=== PATIENT | female | born 1965 | race African-American/Black ===

== ENCOUNTER 2017-06-05 14:14 | Inpatient (IN) | payer OTHER ==
[2017-06-05 14:32] VITALS: BMI 18.5
--- NOTE | 2017-06-05 14:48 | HP ---
Admission [facility] Chief Complaint: i am here for rehab from heroin and cocaine Allergies/Adverse Reactions: Allergies Allergy/AdvReac Type Severity Reaction Status Date / Time No Known Allergies Allergy Verified 06/05/17 14:42 History of Present Illness: this 51 years old female with heroin and cocaine dependence,seeking rehab,last treatment in 2013 history of anxiety depression longest period of sobriety 3 years Exam Limitations: No Limitations - Ebola screening Have you traveled outside of the country in the last 21 days: No (N) Have you had contact with anyone from an Ebola affected area: No Have you been sick,other than usual withdrawal symptoms: No Do you have a fever: No - Review of Systems Constitutional: No Symptoms Reported EENT: reports: No Symptoms Reported Respiratory: reports: No Symptoms reported Cardiac: reports: No Symptoms Reported GI: reports: No Symptoms Reported : reports: No Symptoms Reported Musculoskeletal: reports: No Symptoms Reported Integumentary: reports: No Symptoms Reported Neuro: reports: No Symptoms reported Endocrine: reports: No Symptoms Reported Hematology: reports: No Symptoms Reported Psychiatric: reports: Depressed Patient History - Patient Medical History Hx Anemia: Yes (on iron pill) Hx Asthma: No Hx Chronic Obstructive Pulmonary Disease (COPD): No Hx Cancer: No Hx Cardiac Disorders: No Hx Congestive Heart Failure: No Hx Hypertension: No Hx Hypercholesterolemia: No Hx Pacemaker: No HX Cerebrovascular Accident: No Hx Seizures: No Hx Dementia: No Hx Diabetes: No Hx Gastrointestinal Disorders: No Hx Liver Disease: No Hx Genitourinary Disorders: No Hx Sexually Transmitted Disorders: No Hx Renal Disease (ESRD): No Hx Thyroid Disease: No Hx Human Immunodeficiency Virus (HIV): No (last 01/17 negative) Hx Hepatitis C: No Hx Depression: Yes Hx Suicide Attempt: No Hx Bipolar Disorder: Yes (SEROQUEL/CLONIDINE) Hx Schizophrenia: No Other Medical History: no suicidal,no homicidal - Patient Surgical History Past Surgical History: Yes Hx Neurologic Surgery: No Hx Cataract Extraction: No Hx Cardiac Surgery: No Hx Lung Surgery: No Hx Breast Surgery: No Hx Breast Biopsy: No Hx Abdominal Surgery: No Hx Appendectomy: No Hx Cholecystectomy: No Hx Genitourinary Surgery: No Hx Section: No Hx Orthopedic Surgery: No Other Surgical History: tubal ligation in 2000 Anesthesia Reaction: No - PPD History Previous Implant?: Yes Documented Results: Negative w/o proof Implanted On Prior [facility] Admission?: Yes Date: 04/13/13 PPD to be Administered?: Yes - Reproductive History Patient is a Female of Child Bearing Age (11 -55 yrs old): Yes Last Menstrual Period: 05/17/17 Patient : No - Smoking Cessation Smoking history: Current every day smoker Have you smoked in the past 12 months: Yes Aproximately how many cigarettes per day: 3 Cigars Per Day: 0 Hx Chewing Tobacco Use: No Initiated information on smoking cessation: Yes 'Breaking Loose' booklet given: 06/05/17 - Substance & Tx. History Hx Alcohol Use: No Hx Substance Use: Yes Substance Use Type: Cocaine, Heroin, Marijuana Hx Substance Use Treatment: Yes ([facility] 2013) - Substances Abused Heroin Route: Inhalation Frequency: 1-2 times per week Amount used: 1/2 BAG Age of first use: 36 Date of Last Use: 06/04/17 Cocaine Route: Smoking Frequency: 1-2 times per week Amount used: 1 BAG Age of first use: 23 Date of Last Use: 06/04/17 Marijuana/Hashish Route: Smoking Frequency: 1-2 times per week Amount used: 1 JOINT Age of first use: 15 Date of Last Use: 06/04/17 Family Disease History - Family Disease History Family Disease History: Heart Disease: Father (ALCOHOLIC,HTN), Mother (HTN), Other: Father Admission Physical Exam S - Vital Signs Vital Signs: Vital Signs - 24 hr 06/05/17 14:28 Temperature 98.1 F Pulse Rate 84 Respiratory 18 Rate Blood Pressure 157/81 - Physical General Appearance: Yes: Within Normal Limits HEENTM: Yes: Within Normal Limits, Normal ENT Inspection, TRESA Respiratory: Yes: Lungs Clear, Normal Breath Sounds, No Respiratory Distress Neck: Yes: Within Normal Limits Cardiology: Yes: Within Normal Limits, Regular Rhythm, Regular Rate, S1, S2 Abdominal: Yes: Within Normal Limits, Normal Bowel Sounds, Non Tender, Flat, Soft Genitourinary: Yes: Within Normal Limits Back: Yes: Within Normal Limits Musculoskeletal: Yes: Within Normal Limits Extremities: Yes: Within Normal Limits, Normal Range of Motion 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 NML intact, Fully Oriented, Alert, Motor Strength 5/5 Integumentary: Yes: Dry Lymphatic: Yes: Within Normal Limits - Diagnostic (1) Arthritis Current Visit: No Status: Acute (2) Bipolar disorder Current Visit: No Status: Acute (3) Cocaine dependence Current Visit: No Status: Acute (4) Low back pain Current Visit: No Status: Acute (5) Opioid dependence Current Visit: No Status: Acute (6) Weight decreased Current Visit: No Status: Acute (7) Anemia Current Visit: Yes Status: Acute Cleared for Admission [facility] - Detox or Rehab Claeared for Rehab Admission: Yes S Breath Alcohol Content Breath Alcohol Content: 0 Urine Pregancy Test - Result Urine Test Results: Negative- NO Line Present Urine Drug Screen - Results Drug Screen Negative: No Urine Drug Screen Results: THC-Marijuana, CHRIS-Cocaine, OPI-Opiates Inpatient Rehab Admission - Initial Determination Are CD services needed?: Yes Free of communicable disease: Yes Not in need of hospitalization: Yes - Rehab Admission Criteria Previous failed treatment: Yes Poor recovery environment: Yes Comorbidities: Yes Patient is meeting Inpatient Rehab admission criteria:: Yes
[2017-06-05] MEDS ORDERED: P-EPHED 60MG/TRIPROLIDI 2.5MG TABLET PO PRN (14:59)
[2017-06-05] MEDS ORDERED: guaiFENesin/D-METHORPHAN HB 10 ML UNIT-DOSE CUPS PO PRN (14:59)
[2017-06-05] MEDS ORDERED: MENTHOL/PHENOL 1 EACH UD MM PRN (14:59)
[2017-06-05] MEDS ORDERED: MAG HYDROX/AL HYDROX/SIMETH 30 ML UNIT-DOSE CUP PO PRN (14:59)
[2017-06-05] MEDS ORDERED: LOPERAMIDE HCL 2 MG CAPSULE PO PRN (14:59)
[2017-06-05] MEDS ORDERED: MAGNESIUM HYDROX 2400MG/30ML ORAL SUSPENSION 30 ML CUP PO PRN (14:59)
[2017-06-05] MEDS ORDERED: hydrOXYzine PAMOATE 25 MG CAPSULE (FP) PO PRN (14:59)
[2017-06-05] MEDS ORDERED: ACETAMINOPHEN 325 MG TABLET (FP) PO PRN (14:59)
[2017-06-05] MEDS ORDERED: MAGNESIUM CITRATE 300 ML BOTTLE PO PRN (14:59)
--- NOTE | 2017-06-05 15:48 | HP ---
Psychiatrist Admission - Data Date of interview: 06/05/17 Admission source: [facility] Identifying data: This is the first admission to [address] [place] [address] for this 51 years old AA female mother of 4,resides with her son,unemployed,supported by [employer] since Mar 2017. Medical History: Significant for Anemia. Psychiatric History: Patient reports long and extensive psychiatric history started back in 1989.Patient reports about 5 psychiatric hospitalizations, nothing recently She was dx with ZBipolar disworder.Patient [facility]artrist [facility].Current medications (she stopped 2-3 months ago since she relapsed).Patient is willing to restart :Seroquel 50 mg po bid. Physical/Sexual Abuse/Trauma History: denies Vital Signs: Vital Signs - 24 hr 06/05/17 14:28 Temperature 98.1 F Pulse Rate 84 Respiratory 18 Rate Blood Pressure 157/81 Allergies/Adverse Reactions: Allergies Allergy/AdvReac Type Severity Reaction Status Date / Time No Known Allergies Allergy Verified 06/05/17 14:42 Date of last physical exam: 06/05/17 Concur with the findings of this exam: Yes - Substance Abuse/Tx History Hx Alcohol Use: Yes (socially) Hx Substance Use: Yes (marijuana since 14,heroin since 36 yococaine /crack since 23 yo) Substance Use Type: Cocaine, Heroin Hx Substance Use Treatment: Yes (longest abstinence 3 years) Mental Status Exam - Mental Status Exam Alert and Oriented to: Time, Place, Person Cognitive Function: Grossly Intact Patient Appearance: Unkempt Mood: Anxious, Irritable Affect: Labile Patient Behavior: Restless, Cooperative Speech Pattern: Clear Voice Loudness: Normal Thought Process: Goal Oriented Thought Disorder: Not Present Hallucinations: Denies Suicidal Ideation: Denies Homicidal Ideation: Denies Insight/Judgement: Fair Sleep: Difficulty falling asleep Appetite: Good Muscle strength/Tone: Normal Gait/Station: Normal Psychiatric Findings - Problem List ([place] 1, 2,3) (1) Anemia Current Visit: Yes Status: Chronic (2) Alcohol dependence Current Visit: Yes Status: Chronic (3) Arthritis Current Visit: Yes Status: Chronic (4) Asthma Current Visit: Yes Status: Chronic (5) Bipolar disorder Current Visit: Yes Status: Chronic (6) Opioid dependence Current Visit: Yes Status: Chronic (7) Cocaine dependence Current Visit: Yes Status: Chronic (8) Low back pain Current Visit: Yes Status: Chronic (9) Opioid dependence Current Visit: Yes Status: Chronic - Initial Treatment Plan Initial Treatment Plan: Continue Seroquel 200 mg po am and 300 mg po hs.Will monitor progress.
[2017-06-05 18:43] LABS: HEMATOCRIT 41.6 % (32.4-45.2); HEMOGLOBIN 13.7 GM/dL (10.7-15.3); MCH 30.6 pg (25.7-33.7); MCHC 32.9 g/dl (32.0-36.0); MEAN CELL VOLUME 93.1 fl (80-96); MEAN PLT VOLUME 9.3 fl (7.5-11.1); PLATELET COUNT 242 K/MM3 (134-434); RBC 4.47 M/mm3 (3.60-5.2); RDW 14.3 % (11.6-15.6); WHITE BLOOD COUNT 4.8 K/mm3 (4.0-10.0)
[2017-06-05 18:50] LABS: ALBUMIN 3.8 g/dl (3.4-5.0); ANION GAP 9 (8-16); BLOOD UREA NITROGEN 12 mg/dL (7-18); CALCIUM 8.7 mg/dL (8.5-10.1); CHLORIDE 106 mmol/L (98-107); CO2 28 mmol/L (21-32); GLUCOSE,RANDOM 130 mg/dL (74-106); SGPT/ALT 32 U/L (12-78); SODIUM 143 mmol/L (136-145)
[2017-06-05 18:54] LABS: ALK PHOS 108 U/L (45-117); BILIRUBIN,TOTAL 0.7 mg/dL (0.2-1.0); SGOT/AST 20 U/L (15-37); TOT PROT 7.1 g/dl (6.4-8.2)
[2017-06-05 19:03] LABS: URINE APPEARANCE SLCLOUDY; URINE BILIRUBIN NEGATIVE (NEGATIVE); URINE BLOOD NEGATIVE (NEGATIVE); URINE COLOR DKYELLOW; URINE GLUCOSE (UA) NEGATIVE (NEGATIVE); URINE KETONE TRACE (NEGATIVE); URINE LEUK ESTERASE NEGATIVE (NEGATIVE); URINE NITRITE NEGATIVE (NEGATIVE); URINE UROBILINOGEN 4.0 E.U/dl mg/dL (0.2-1.0)
[2017-06-05 19:09] LABS: URINE PROTEIN 1+ (NEGATIVE)
[2017-06-05 20:26] LABS: POTASSIUM 2.9 mmol/L (3.5-5.1)
[2017-06-05 20:33] LABS: EPI CELLS RARE /HPF (FEW); URINE BACTERIA RARE /hpf (NONE SEEN); URINE HYALINE CAST 1 /lpf; URINE MUCUS MODERATE
--- NOTE | 2017-06-05 20:34 | PN ---
[facility] Progress Note Note: received lab call potassium 2.9 begin potassium 20 meq bid x 10 dosage repeat camp 06/10/17
[2017-06-05] MEDS ORDERED: POTASSIUM CHLORIDE TABS 20 MEQ TABLET.ER (FP) PO ONE (21:00)
[2017-06-05] MEDS: THIAMINE HCL 100 MG TABLET (FP) PO SCH (22:03)
[2017-06-05] MEDS: POTASSIUM CHLORIDE ORAL LIQUID 20 MEQ/15 ML PO SCH (23:40)
[2017-06-06] MEDS: POTASSIUM CHLORIDE ORAL LIQUID 20 MEQ/15 ML PO SCH ×2 (10:29→21:47)
[2017-06-06] MEDS: PRENATAL VITAMINS W/ FOLIC ACID TABLET (FP) PO SCH (10:29)
[2017-06-06] MEDS: BACITRACIN 0.9 GM PACKET TP SCH ×2 (10:29→21:47)
--- NOTE | 2017-06-06 12:32 | EKG ---
Test Reason : Blood Pressure : / mmHG Vent. Rate : 074 BPM Atrial Rate : 074 BPM P-R Int : 148 ms QRS Dur : 080 ms QT Int : 352 ms P-R-T Axes : 067 -27 085 degrees QTc Int : 390 ms NORMAL SINUS RHYTHM INFERIOR INFARCT , AGE UNDETERMINED ANTEROSEPTAL INFARCT , AGE UNDETERMINED ABNORMAL ECG NO PREVIOUS ECGS AVAILABLE Confirmed by MARIA T JOYA MD ([id number]) on 06/06/2017 12:32:30 PM Referred By: Confirmed By:MARIA T JOYA MD
--- NOTE | 2017-06-06 12:33 | EKG ---
Test Reason : Blood Pressure : / mmHG Vent. Rate : 065 BPM Atrial Rate : 065 BPM P-R Int : 148 ms QRS Dur : 072 ms QT Int : 426 ms P-R-T Axes : 052 -16 057 degrees QTc Int : 443 ms NORMAL SINUS RHYTHM INFERIOR INFARCT (CITED ON OR BEFORE 05-JUN-2017) ABNORMAL ECG WHEN COMPARED WITH ECG OF 05-JUN-2017 20:21, CRITERIA FOR ANTEROSEPTAL INFARCT ARE NO LONGER PRESENT T WAVE INVERSION NO LONGER EVIDENT IN ANTERIOR LEADS QT HAS LENGTHENED Confirmed by MARIA T JOYA MD ([id number]) on 06/06/2017 12:32:54 PM Referred By: Confirmed By:MARIA T JOYA MD
[2017-06-06] MEDS: THIAMINE HCL 100 MG TABLET (FP) PO SCH (21:47)
[2017-06-07] MEDS ORDERED: POTASSIUM CHLORIDE TABS 20 MEQ TABLET.ER (FP) PO ONE (09:59)
[2017-06-07] MEDS: BACITRACIN 0.9 GM PACKET TP SCH ×2 (10:46→22:08)
[2017-06-07] MEDS: PRENATAL VITAMINS W/ FOLIC ACID TABLET (FP) PO SCH (10:46)
[2017-06-07] MEDS: IBUPROFEN 400 MG TABLET (FP) PO PRN ×2 (10:47→19:33)
[2017-06-07] MEDS: THIAMINE HCL 100 MG TABLET (FP) PO SCH (22:08)
[2017-06-08] MEDS: PRENATAL VITAMINS W/ FOLIC ACID TABLET (FP) PO SCH (10:35)
[2017-06-08] MEDS: BACITRACIN 0.9 GM PACKET TP SCH ×2 (10:36→22:04)
[2017-06-08] MEDS: IBUPROFEN 400 MG TABLET (FP) PO PRN (11:55)
[2017-06-08] MEDS: COLLOIDAL OATMEAL 1 BAR EACH TP PRN (13:03)
[2017-06-08] MEDS: THIAMINE HCL 100 MG TABLET (FP) PO SCH (22:03)
[2017-06-09] MEDS: BACITRACIN 0.9 GM PACKET TP SCH ×2 (10:17→21:46)
[2017-06-09] MEDS: PRENATAL VITAMINS W/ FOLIC ACID TABLET (FP) PO SCH (10:17)
[2017-06-09] MEDS: THIAMINE HCL 100 MG TABLET (FP) PO SCH (21:46)
[2017-06-10] MEDS: PRENATAL VITAMINS W/ FOLIC ACID TABLET (FP) PO SCH (10:39)
[2017-06-10] MEDS: BACITRACIN 0.9 GM PACKET TP SCH ×2 (10:39→21:52)
[2017-06-10] MEDS: THIAMINE HCL 100 MG TABLET (FP) PO SCH (21:52)
[2017-06-10] MEDS: QUEtiapine FUMARATE 50 MG TABLET PO SCH (21:53)
[2017-06-11] MEDS: BACITRACIN 0.9 GM PACKET TP SCH ×2 (09:50→21:36)
[2017-06-11] MEDS: QUEtiapine FUMARATE 50 MG TABLET PO SCH ×2 (09:52→21:37)
[2017-06-11] MEDS: NAPROXEN 500 MG TABLET (FP) PO SCH ×2 (09:52→21:37)
[2017-06-11] MEDS: PANTOPRAZOLE 40 MG TABLET (FP) PO SCH (09:52)
[2017-06-11] MEDS: PRENATAL VITAMINS W/ FOLIC ACID TABLET (FP) PO SCH (09:53)
[2017-06-11] MEDS: LIDOCAINE 5% TOPICAL PATCH TP SCH (09:54)
[2017-06-11] MEDS: GABAPENTIN 100 MG CAPSULE (FP) PO SCH ×2 (13:23→21:37)
[2017-06-11] MEDS: CYCLOBENZAPRINE HCL 5 MG TABLET PO SCH ×2 (13:23→21:37)
[2017-06-11] MEDS: THIAMINE HCL 100 MG TABLET (FP) PO SCH (21:37)
[2017-06-11] MEDS: LIDOCAINE PATCH REMOVAL MC SCH (21:38)
[2017-06-12] MEDS: CYCLOBENZAPRINE HCL 5 MG TABLET PO SCH ×3 (06:52→21:50)
[2017-06-12] MEDS: GABAPENTIN 100 MG CAPSULE (FP) PO SCH ×3 (06:52→21:50)
[2017-06-12] MEDS: BACITRACIN 0.9 GM PACKET TP SCH ×2 (10:33→21:50)
[2017-06-12] MEDS: NAPROXEN 500 MG TABLET (FP) PO SCH (10:33)
[2017-06-12] MEDS: PRENATAL VITAMINS W/ FOLIC ACID TABLET (FP) PO SCH (10:33)
[2017-06-12] MEDS: LIDOCAINE 5% TOPICAL PATCH TP SCH (10:33)
[2017-06-12] MEDS: QUEtiapine FUMARATE 50 MG TABLET PO SCH ×2 (10:33→21:50)
[2017-06-12] MEDS: PANTOPRAZOLE 40 MG TABLET (FP) PO SCH (10:34)
[2017-06-12] MEDS: THIAMINE HCL 100 MG TABLET (FP) PO SCH (21:50)
[2017-06-12] MEDS: LIDOCAINE PATCH REMOVAL MC SCH (23:20)
[2017-06-13] MEDS: GABAPENTIN 100 MG CAPSULE (FP) PO SCH ×3 (06:35→21:32)
[2017-06-13] MEDS: CYCLOBENZAPRINE HCL 5 MG TABLET PO SCH ×3 (06:35→21:32)
[2017-06-13] MEDS: PRENATAL VITAMINS W/ FOLIC ACID TABLET (FP) PO SCH (10:35)
[2017-06-13] MEDS: BACITRACIN 0.9 GM PACKET TP SCH ×2 (10:35→21:32)
[2017-06-13] MEDS: QUEtiapine FUMARATE 50 MG TABLET PO SCH ×2 (10:35→21:32)
[2017-06-13] MEDS: LIDOCAINE 5% TOPICAL PATCH TP SCH (10:35)
[2017-06-13] MEDS: THIAMINE HCL 100 MG TABLET (FP) PO SCH (21:32)
[2017-06-13] MEDS: LIDOCAINE PATCH REMOVAL MC SCH (21:33)
[2017-06-14] MEDS: GABAPENTIN 100 MG CAPSULE (FP) PO SCH ×3 (06:41→21:41)
[2017-06-14] MEDS: CYCLOBENZAPRINE HCL 5 MG TABLET PO SCH ×3 (06:41→21:41)
[2017-06-14] MEDS: LIDOCAINE 5% TOPICAL PATCH TP SCH (10:05)
[2017-06-14] MEDS: PRENATAL VITAMINS W/ FOLIC ACID TABLET (FP) PO SCH (10:05)
[2017-06-14] MEDS: BACITRACIN 0.9 GM PACKET TP SCH ×2 (10:05→21:41)
[2017-06-14] MEDS: QUEtiapine FUMARATE 50 MG TABLET PO SCH ×2 (10:05→21:41)
[2017-06-14] MEDS: THIAMINE HCL 100 MG TABLET (FP) PO SCH (21:41)
[2017-06-14] MEDS: LIDOCAINE PATCH REMOVAL MC SCH (21:42)
[2017-06-14] MEDS: COLLOIDAL OATMEAL 1 BAR EACH TP PRN (21:52)
[2017-06-15] MEDS: CYCLOBENZAPRINE HCL 5 MG TABLET PO SCH ×3 (06:58→21:40)
[2017-06-15] MEDS: GABAPENTIN 100 MG CAPSULE (FP) PO SCH ×3 (06:58→21:40)
[2017-06-15] MEDS: BACITRACIN 0.9 GM PACKET TP SCH ×2 (10:37→21:41)
[2017-06-15] MEDS: PRENATAL VITAMINS W/ FOLIC ACID TABLET (FP) PO SCH (10:37)
[2017-06-15] MEDS: QUEtiapine FUMARATE 50 MG TABLET PO SCH ×2 (10:37→21:40)
[2017-06-15] MEDS: LIDOCAINE 5% TOPICAL PATCH TP SCH (10:38)
[2017-06-15] MEDS: LIDOCAINE PATCH REMOVAL MC SCH (21:40)
[2017-06-15] MEDS: THIAMINE HCL 100 MG TABLET (FP) PO SCH (21:40)
[2017-06-16] MEDS: CYCLOBENZAPRINE HCL 5 MG TABLET PO SCH ×3 (06:48→21:46)
[2017-06-16] MEDS: GABAPENTIN 100 MG CAPSULE (FP) PO SCH ×3 (06:48→21:46)
[2017-06-16] MEDS: BACITRACIN 0.9 GM PACKET TP SCH ×2 (10:07→21:46)
[2017-06-16] MEDS: LIDOCAINE 5% TOPICAL PATCH TP SCH (10:07)
[2017-06-16] MEDS: PRENATAL VITAMINS W/ FOLIC ACID TABLET (FP) PO SCH (10:07)
[2017-06-16] MEDS: QUEtiapine FUMARATE 50 MG TABLET PO SCH ×2 (10:07→21:46)
[2017-06-16] MEDS: LIDOCAINE PATCH REMOVAL MC SCH (21:46)
[2017-06-16] MEDS: THIAMINE HCL 100 MG TABLET (FP) PO SCH (21:46)
[2017-06-17] MEDS: CYCLOBENZAPRINE HCL 5 MG TABLET PO SCH ×3 (06:30→21:50)
[2017-06-17] MEDS: GABAPENTIN 100 MG CAPSULE (FP) PO SCH ×3 (06:30→21:50)
[2017-06-17] MEDS: QUEtiapine FUMARATE 50 MG TABLET PO SCH ×2 (09:58→21:50)
[2017-06-17] MEDS: PRENATAL VITAMINS W/ FOLIC ACID TABLET (FP) PO SCH (09:58)
[2017-06-17] MEDS: BACITRACIN 0.9 GM PACKET TP SCH ×2 (09:58→21:50)
[2017-06-17] MEDS: LIDOCAINE 5% TOPICAL PATCH TP SCH (09:58)
[2017-06-17] MEDS ORDERED: PT OWN MED DRAWER 7, Y5N ONE ×2 (12:32→13:17)
[2017-06-17] MEDS: THIAMINE HCL 100 MG TABLET (FP) PO SCH (21:50)
[2017-06-17] MEDS: LIDOCAINE PATCH REMOVAL MC SCH (21:51)
[2017-06-18] MEDS: CYCLOBENZAPRINE HCL 5 MG TABLET PO SCH (06:36)
[2017-06-18] MEDS: GABAPENTIN 100 MG CAPSULE (FP) PO SCH (06:36)
[2017-06-18 07:35] VITALS: TEMP 97.4
[2017-06-18 09:25] VITALS: BP 118/75; PULSE 92
[2017-06-18] MEDS: PRENATAL VITAMINS W/ FOLIC ACID TABLET (FP) PO SCH (10:50)
[2017-06-18] MEDS: BACITRACIN 0.9 GM PACKET TP SCH (10:50)
[2017-06-18] MEDS: LIDOCAINE 5% TOPICAL PATCH TP SCH (10:50)
[2017-06-18] MEDS: QUEtiapine FUMARATE 50 MG TABLET PO SCH (10:50)
--- NOTE | 2017-06-18 11:40 | PN ---
[facility] Progress Note Note: Informed by nursing staff that patient want to leave the program today instead of tomorrow which is her scheduled discharge date. Reportedly patient is stable for discharge. Discharge order placed and script for 30 days supply of Seroquel 50 mg po BID
== END 2017-06-18 12:30 | disposition home or self-care (01) | DRG 772 ==
LOC: YASAS 14:14 → Y3E 15:17
PROVIDERS: ADMIT Psychiatry & Neurology Psychiatry; ATTEND Psychiatry & Neurology Psychiatry
PROC: HZ42ZZZ Group Counseling for Substance Abuse Treatment, Cognitive-Behavioral (ICD-10-PCS; principal; 2017-06-05)
DX: F11.20 Opioid dependence, uncomplicated (principal); F14.20 Cocaine dependence, uncomplicated; F17.210 Nicotine dependence, cigarettes, uncomplicated; F31.9 Bipolar disorder, unspecified; J45.909 Unspecified asthma, uncomplicated; M54.5 Low back pain; M19.90 Unspecified osteoarthritis, unspecified site; D64.9 Anemia, unspecified; Z87.898 Personal history of other specified conditions
CPT/HCPCS: 36415; 80053; 81003; 81015; 84132; 85027; 86593; 87389; 93005; 93010

== ENCOUNTER 2018-01-24 10:29 | Inpatient (IN) | payer OTHER ==
[2018-01-24 11:11] VITALS: BMI 19.9
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
[2018-01-24] MEDS ORDERED: MAG HYDROX/AL HYDROX/SIMETH 30 ML UNIT-DOSE CUP PO PRN (13:30)
[2018-01-24] MEDS ORDERED: guaiFENesin/D-METHORPHAN HB 10 ML UNIT-DOSE CUPS PO PRN (13:30)
[2018-01-24] MEDS ORDERED: P-EPHED 60MG/TRIPROLIDI 2.5MG TABLET PO PRN (13:30)
[2018-01-24] MEDS ORDERED: LOPERAMIDE HCL 2 MG CAPSULE PO PRN (13:30)
[2018-01-24] MEDS ORDERED: MENTHOL/PHENOL 1 EACH UD MM PRN (13:30)
[2018-01-24] MEDS ORDERED: MAGNESIUM HYDROX 2400MG/30ML ORAL SUSPENSION 30 ML CUP PO PRN (13:30)
[2018-01-24] MEDS ORDERED: NICOTINE POLACRILEX 2 MG GUM BUC PRN (13:30)
[2018-01-24] MEDS ORDERED: ACETAMINOPHEN 325 MG TABLET (FP) PO PRN (13:30)
[2018-01-24] MEDS ORDERED: MAGNESIUM CITRATE 300 ML BOTTLE PO PRN (13:30)
[2018-01-24] MEDS: HYDROCHLOROTHIAZIDE 12.5 MG CAPSULE (FP) PO SCH ×2 (14:15→21:08)
[2018-01-24] MEDS: GABAPENTIN 100 MG CAPSULE (FP) PO SCH ×2 (15:02→21:08)
[2018-01-24 17:03] LABS: URINE APPEARANCE CLOUDY; URINE BILIRUBIN NEGATIVE (<2.0 mg/dL); URINE GLUCOSE (UA) NEGATIVE (NEGATIVE); URINE KETONE NEGATIVE (NEGATIVE); URINE LEUK ESTERASE TRACE (NEGATIVE); URINE NITRITE NEGATIVE (NEGATIVE); URINE PROTEIN NEGATIVE (NEGATIVE)
[2018-01-24 17:32] LABS: URINE COLOR YELLOW
[2018-01-24 18:11] LABS: EPI CELLS RARE /HPF (FEW); URINE BACTERIA RARE /hpf (NONE SEEN); URINE MUCUS RARE
[2018-01-24] MEDS: THIAMINE HCL 100 MG TABLET (FP) PO SCH (21:08)
[2018-01-24] MEDS: METHYL SALICYLATE/MENTHOL OINT 30 GM TUBE TP SCH (21:09)
[2018-01-24] MEDS ORDERED: MELATONIN 5 MG TABLETS PO PRN (22:00)
[2018-01-24] MEDS ORDERED: METHYL SALICYLATE/MENTHOL OINT 30 GM TUBE TP SCH (22:00)
--- NOTE | 2018-01-24 22:25 | PN ---
S Progress Note Note: Psychiatry Attending's on-call note : Informed of this admission. Called by nurse earlier. For order for seroquel. Not able to interview patient. Ms Calvo is reported to be asleep. Seroquel held until further orders.
[2018-01-25] MEDS: METHADONE HCL 10 MG TABLET PO SCH (07:43)
[2018-01-25] MEDS: GABAPENTIN 100 MG CAPSULE (FP) PO SCH ×3 (07:43→21:31)
[2018-01-25] MEDS ORDERED: PT OWN MED DRAWER 7, Y5N ONE ×2 (08:29→19:35)
[2018-01-25] MEDS: PRENATAL VITAMINS W/ FOLIC ACID TABLET (FP) PO SCH (09:48)
[2018-01-25] MEDS: HYDROCHLOROTHIAZIDE 12.5 MG CAPSULE (FP) PO SCH ×2 (09:48→21:31)
[2018-01-25] MEDS: METHYL SALICYLATE/MENTHOL OINT 30 GM TUBE TP SCH ×2 (09:49→21:31)
[2018-01-25] MEDS: NICOTINE 21 MG/24 HOURS TOPICAL PATCH TD SCH (09:50)
[2018-01-25] MEDS: hydrOXYzine PAMOATE 50 MG CAPSULE (FP) PO PRN (15:29)
--- NOTE | 2018-01-25 19:09 | EKG ---
Test Reason : Blood Pressure : / mmHG Vent. Rate : 073 BPM Atrial Rate : 073 BPM P-R Int : 146 ms QRS Dur : 084 ms QT Int : 416 ms P-R-T Axes : 064 003 053 degrees QTc Int : 458 ms NORMAL SINUS RHYTHM CANNOT RULE OUT INFERIOR INFARCT , AGE UNDETERMINED ANTEROSEPTAL INFARCT (CITED ON OR BEFORE 14-JAN-2018) ABNORMAL ECG WHEN COMPARED WITH ECG OF 14-JAN-2018 23:02, PREMATURE VENTRICULAR COMPLEXES ARE NO LONGER PRESENT QUESTIONABLE CHANGE IN INITIAL FORCES OF SEPTAL LEADS Confirmed by SINGH ROA, ANDRADE ([id number]) on 01/25/2018 7:09:19 PM Referred By: Tae Vega Confirmed By:ANDRADE WINTERS MD
[2018-01-25] MEDS: THIAMINE HCL 100 MG TABLET (FP) PO SCH (21:31)
[2018-01-26] MEDS: GABAPENTIN 100 MG CAPSULE (FP) PO SCH ×3 (06:22→23:08)
[2018-01-26] MEDS: METHADONE HCL 10 MG TABLET PO SCH (06:22)
[2018-01-26] MEDS ORDERED: PT OWN MED DRAWER 7, Y5N ONE (08:17)
[2018-01-26] MEDS: HYDROCHLOROTHIAZIDE 12.5 MG CAPSULE (FP) PO SCH ×2 (10:00→23:08)
[2018-01-26] MEDS: NICOTINE 21 MG/24 HOURS TOPICAL PATCH TD SCH (10:00)
[2018-01-26] MEDS: METHYL SALICYLATE/MENTHOL OINT 30 GM TUBE TP SCH ×2 (10:00→23:08)
[2018-01-26] MEDS: PRENATAL VITAMINS W/ FOLIC ACID TABLET (FP) PO SCH (10:00)
[2018-01-26] MEDS: IBUPROFEN 400 MG TABLET (FP) PO PRN (10:50)
[2018-01-26] MEDS: THIAMINE HCL 100 MG TABLET (FP) PO SCH (23:08)
[2018-01-27] MEDS: METHADONE HCL 10 MG TABLET PO SCH (06:33)
[2018-01-27] MEDS: GABAPENTIN 100 MG CAPSULE (FP) PO SCH ×3 (06:33→21:16)
[2018-01-27] MEDS ORDERED: PT OWN MED DRAWER 7, Y5N ONE ×2 (08:35→21:06)
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
[2018-01-27] MEDS: HYDROCHLOROTHIAZIDE 12.5 MG CAPSULE (FP) PO SCH ×2 (09:54→21:16)
[2018-01-27] MEDS: PRENATAL VITAMINS W/ FOLIC ACID TABLET (FP) PO SCH (09:54)
[2018-01-27] MEDS: NICOTINE 21 MG/24 HOURS TOPICAL PATCH TD SCH (09:55)
[2018-01-27] MEDS: METHYL SALICYLATE/MENTHOL OINT 30 GM TUBE TP SCH ×2 (09:56→21:17)
--- NOTE | 2018-01-27 14:28 | PN ---
[facility] Progress Note Note: Vital Signs Temperature 97.7 F 01/27/18 06:55 Pulse Rate 82 01/27/18 10:00 Respiratory Rate 16 01/27/18 06:55 Blood Pressure 128/86 01/27/18 10:00 O2 Sat by Pulse Oximetry (%) Laboratory Last Values Urine Color Yellow 01/24/18 10:55 Urine Appearance Cloudy 01/24/18 10:55 Urine pH 7.0 (5.0-8.0) 01/24/18 10:55 Ur Specific [place] 1.013 (1.001-1.035) 01/24/18 10:55 Urine Protein Negative (NEGATIVE) 01/24/18 10:55 Urine Glucose (UA) Negative (NEGATIVE) 01/24/18 10:55 Urine Ketones Negative (NEGATIVE) 01/24/18 10:55 Urine Blood Negative (NEGATIVE) 01/24/18 10:55 Urine Nitrite Negative (NEGATIVE) 01/24/18 10:55 Urine Bilirubin Negative (<2.0 mg/dL) 01/24/18 10:55 Urine Urobilinogen 2.0 mg/dL (0.2-1.0) H 01/24/18 10:55 Ur Leukocyte Esterase Trace (NEGATIVE) 01/24/18 10:55 Urine WBC (Auto) 9 /hpf (3-5) 01/24/18 10:55 Urine RBC (Auto) <1 /hpf (0-3) 01/24/18 10:55 Ur Epithelial Cells Rare /HPF (FEW) 01/24/18 10:55 Urine Bacteria Rare /hpf (NONE SEEN) 01/24/18 10:55 Urine Mucus Rare 01/24/18 10:55 Patient c/o of generalized pruritus, requested increase in methadone dose, patient to follow up with methadone program Benadryl 25 mg PRN aveeno soap continue to monitor
[2018-01-27] MEDS: diphenhydrAMINE HCL 25 MG CAPSULE (FP) PO PRN (15:51)
[2018-01-27] MEDS: THIAMINE HCL 100 MG TABLET (FP) PO SCH (21:16)
[2018-01-27] MEDS: IBUPROFEN 400 MG TABLET (FP) PO PRN (22:17)
[2018-01-28] MEDS: GABAPENTIN 100 MG CAPSULE (FP) PO SCH ×3 (06:15→21:13)
[2018-01-28] MEDS: METHADONE HCL 10 MG TABLET PO SCH (06:15)
[2018-01-28] MEDS: COLLOIDAL OATMEAL 1 BAR EACH TP PRN (06:55)
[2018-01-28] MEDS ORDERED: PT OWN MED DRAWER 7, Y5N ONE (08:28)
[2018-01-28] MEDS: NICOTINE 21 MG/24 HOURS TOPICAL PATCH TD SCH (09:57)
[2018-01-28] MEDS: METHYL SALICYLATE/MENTHOL OINT 30 GM TUBE TP SCH ×2 (09:58→21:14)
[2018-01-28] MEDS: HYDROCHLOROTHIAZIDE 12.5 MG CAPSULE (FP) PO SCH ×2 (09:58→21:13)
[2018-01-28] MEDS: PRENATAL VITAMINS W/ FOLIC ACID TABLET (FP) PO SCH (09:58)
[2018-01-28] MEDS: diphenhydrAMINE HCL 25 MG CAPSULE (FP) PO PRN (19:10)
[2018-01-28] MEDS: IBUPROFEN 400 MG TABLET (FP) PO PRN (19:11)
[2018-01-28] MEDS: THIAMINE HCL 100 MG TABLET (FP) PO SCH (21:13)
[2018-01-29] MEDS: METHADONE HCL 10 MG TABLET PO SCH (06:32)
[2018-01-29] MEDS: GABAPENTIN 100 MG CAPSULE (FP) PO SCH ×3 (06:33→21:45)
[2018-01-29] MEDS: PRENATAL VITAMINS W/ FOLIC ACID TABLET (FP) PO SCH (09:49)
[2018-01-29] MEDS: METHYL SALICYLATE/MENTHOL OINT 30 GM TUBE TP SCH ×2 (09:49→21:46)
[2018-01-29] MEDS: HYDROCHLOROTHIAZIDE 12.5 MG CAPSULE (FP) PO SCH ×2 (09:49→21:45)
[2018-01-29] MEDS: NICOTINE 21 MG/24 HOURS TOPICAL PATCH TD SCH (09:50)
--- NOTE | 2018-01-29 14:39 | PN ---
[facility] Progress Note Note: Vital Signs Temperature 97.4 F L 01/29/18 06:52 Pulse Rate 70 01/29/18 09:52 Respiratory Rate 16 01/29/18 06:52 Blood Pressure 121/77 01/29/18 09:52 O2 Sat by Pulse Oximetry (%) Laboratory Last Values Urine Color Yellow 01/24/18 10:55 Urine Appearance Cloudy 01/24/18 10:55 Urine pH 7.0 (5.0-8.0) 01/24/18 10:55 Ur Specific [place] 1.013 (1.001-1.035) 01/24/18 10:55 Urine Protein Negative (NEGATIVE) 01/24/18 10:55 Urine Glucose (UA) Negative (NEGATIVE) 01/24/18 10:55 Urine Ketones Negative (NEGATIVE) 01/24/18 10:55 Urine Blood Negative (NEGATIVE) 01/24/18 10:55 Urine Nitrite Negative (NEGATIVE) 01/24/18 10:55 Urine Bilirubin Negative (<2.0 mg/dL) 01/24/18 10:55 Urine Urobilinogen 2.0 mg/dL (0.2-1.0) H 01/24/18 10:55 Ur Leukocyte Esterase Trace (NEGATIVE) 01/24/18 10:55 Urine WBC (Auto) 9 /hpf (3-5) 01/24/18 10:55 Urine RBC (Auto) <1 /hpf (0-3) 01/24/18 10:55 Ur Epithelial Cells Rare /HPF (FEW) 01/24/18 10:55 Urine Bacteria Rare /hpf (NONE SEEN) 01/24/18 10:55 Urine Mucus Rare 01/24/18 10:55 Patient requested increase in her methadone daily dose. Patient currently receiving 10 mg QD after verification. Patient reported upon admission receiving [address] Leger at [facility] reports patient has poor attendance to her program, appeared very sedated during attendance and abusing her neurontin. Patient currently stable. Will continue current 10 mg verified methadone dose Patient to follow up with [facility] upon discharge
[2018-01-29] MEDS: diphenhydrAMINE HCL 25 MG CAPSULE (FP) PO PRN (19:10)
[2018-01-29] MEDS ORDERED: PT OWN MED DRAWER 7, Y5N ONE (21:06)
[2018-01-29] MEDS: THIAMINE HCL 100 MG TABLET (FP) PO SCH (21:45)
[2018-01-30] MEDS: GABAPENTIN 100 MG CAPSULE (FP) PO SCH ×3 (06:56→21:09)
[2018-01-30] MEDS: METHADONE HCL 10 MG TABLET PO SCH (06:56)
[2018-01-30] MEDS: PRENATAL VITAMINS W/ FOLIC ACID TABLET (FP) PO SCH (10:10)
[2018-01-30] MEDS: METHYL SALICYLATE/MENTHOL OINT 30 GM TUBE TP SCH ×2 (10:10→21:10)
[2018-01-30] MEDS: HYDROCHLOROTHIAZIDE 12.5 MG CAPSULE (FP) PO SCH ×2 (10:11→21:09)
[2018-01-30] MEDS: NICOTINE 21 MG/24 HOURS TOPICAL PATCH TD SCH (10:11)
[2018-01-30] MEDS: IBUPROFEN 400 MG TABLET (FP) PO PRN (19:03)
[2018-01-30] MEDS: diphenhydrAMINE HCL 25 MG CAPSULE (FP) PO PRN (19:03)
[2018-01-30] MEDS: THIAMINE HCL 100 MG TABLET (FP) PO SCH (21:09)
[2018-01-30] MEDS ORDERED: PT OWN MED DRAWER 7, Y5N ONE (21:49)
[2018-01-31] MEDS: IBUPROFEN 400 MG TABLET (FP) PO PRN ×2 (01:39→16:58)
[2018-01-31] MEDS: GABAPENTIN 100 MG CAPSULE (FP) PO SCH ×3 (07:00→21:25)
[2018-01-31] MEDS: METHADONE HCL 10 MG TABLET PO SCH (07:00)
[2018-01-31] MEDS: HYDROCHLOROTHIAZIDE 12.5 MG CAPSULE (FP) PO SCH ×2 (09:57→21:26)
[2018-01-31] MEDS: PRENATAL VITAMINS W/ FOLIC ACID TABLET (FP) PO SCH (09:57)
[2018-01-31] MEDS: NICOTINE 21 MG/24 HOURS TOPICAL PATCH TD SCH (09:57)
[2018-01-31] MEDS: METHYL SALICYLATE/MENTHOL OINT 30 GM TUBE TP SCH ×2 (09:58→21:25)
[2018-01-31] MEDS: diphenhydrAMINE HCL 25 MG CAPSULE (FP) PO PRN (12:58)
--- NOTE | 2018-01-31 15:27 | PN ---
Psychiatric Progress Note Vital Signs: Vital Signs Period Temp Pulse Resp BP Sys/Penaloza Pulse Ox Last 24 Hr 97.9 F 75-93 18 120-150/78-83 Date of Session: 01/31/18 Chief Complaint:: Karlos nervious,sleep is a big problem. HPI: Alcohol,Cocaine and Opioid dependence comorbid with Bipolar disorder. ROS: Anemia,Arthritis,BA. Current Medications: Active Medications Generic Name Dose Route Start Last Admin Trade Name Freq PRN Reason Stop Dose Admin Acetaminophen 650 mg 01/24/18 13:30 Tylenol - PO Q4H PRN FEVER Al Hydroxide/Mg Hydroxide 30 ml 01/24/18 13:30 Mylanta Oral Suspension - PO Q6H PRN DYSPEPSIA Colloidal Oatmeal 1 applic 01/27/18 14:27 01/28/18 06:55 Aveeno Soap - TP 1 applic DAILY PRN Administration HYGEINE Diphenhydramine HCl 25 mg 01/27/18 14:27 01/31/18 12:58 Benadryl - PO 25 mg Q6H PRN Administration FOR ITCHING Eucalyptus/Menthol/Phenol/Sorbitol 1 each 01/24/18 13:30 Cepastat Lozenge - MM Q4H PRN SORE THROAT Gabapentin 200 mg 01/31/18 15:23 Neurontin - PO TID OFELIA Guaifenesin 10 ml 01/24/18 13:30 Robitussin Dm - PO Q6H PRN COUGH Hydrochlorothiazide 12.5 mg 01/24/18 14:10 01/31/18 09:57 Hctz - PO 12.5 mg BID OFELIA Administration Hydroxyzine Pamoate 50 mg 01/24/18 13:30 01/25/18 15:29 Vistaril - PO 50 mg Q4H PRN Administration AGITATION Ibuprofen 400 mg 01/24/18 13:30 01/31/18 01:39 Motrin - PO 400 mg Q6H PRN Administration Pain level 4-6 Loperamide HCl 4 mg 01/24/18 13:30 Imodium - PO Q6H PRN DIARRHEA Magnesium Citrate 300 ml 01/24/18 13:30 Citroma - PO Q48H PRN CONSTIPATION Magnesium Hydroxide 30 ml 01/24/18 13:30 Milk Of Magnesia - PO DAILY PRN CONSTIPATION Melatonin 5 mg 08/24/18 22:00 Melatonin PO HS PRN INSOMNIA Methadone HCl 10 mg 01/25/18 07:30 01/31/18 07:00 Dolophine - PO 10 mg DAILY@0600 OFELIA Administration Methyl Salicylate 1 applic 01/24/18 22:00 01/31/18 09:58 [place] - TP Not Given BID OFELIA Nicotine 21 mg 01/25/18 10:00 01/31/18 09:57 Nicoderm Patch - TD Not Given DAILY OFELIA Nicotine Polacrilex 2 mg 01/24/18 13:30 Nicorette Gum - BUC Q2H PRN NICOTINE REPLACEMENT RX Multivit/Folic Acid/Iron 1 tab 01/25/18 10:00 01/31/18 09:57 Vitamins (Sjr) - PO 1 tab DAILY OFELIA Administration Pseudoephedrine/Triprolidine 1 combo 01/24/18 13:30 Actifed - PO TID PRN NASAL CONGESTION Quetiapine Fumarate 50 mg 01/31/18 22:00 Seroquel - PO HS OFELIA Thiamine HCl 100 mg 01/24/18 22:00 01/30/18 21:09 Vitamin B1 - PO 100 mg HS OFELIA Administration Current Side Effect: No Lab tests ordered: No Lab tests reviewed: Yes Provider note:: Chart was revuewed,patient was evaluated .She addressed ongoing sleeping difficulties and mood instability.treatment plan including medication management has been discussed with the patient. Continue Seroquel 50 mg po hs, neurontin 200 mg po tid will be adjusted to 300 mg po tid. supportive therapy , psychoeducation has been provided . Total face to face time:: 35 Mental Status Exam - Mental Status Exam Alert and Oriented to: Time, Place, Person Cognitive Function: Grossly Intact Patient Appearance: Unkempt Mood: Anxious, Apprehensive Affect: Mood Congruent, Labile Patient Behavior: Restless, Talkative, Cooperative Speech Pattern: Clear, Excessive Voice Loudness: Mildly Loud Thought Process: Goal Oriented Thought Disorder: Not Present Hallucinations: Denies Suicidal Ideation: Denies Homicidal Ideation: Denies Insight/Judgement: Fair Sleep: Difficulty falling asleep Appetite: Good Muscle strength/Tone: Normal Gait/Station: Normal Psychiatric Treatment Plan - Problem List (1) Opioid dependence on agonist therapy Current Visit: Yes Comment: on MTTP at [facility] (2) Alcohol dependence Current Visit: Yes Qualifiers: Substance use status: unspecified alcohol-induced disorder Qualified Code(s ): F10.29 - Alcohol dependence with unspecified alcohol-induced disorder (3) Anemia Current Visit: Yes Qualifiers: Anemia type: unspecified type Qualified Code(s): D64.9 - Anemia, unspecified (4) Arthritis Current Visit: Yes (5) Asthma Current Visit: Yes Qualifiers: Asthma severity: mild Asthma persistence: unspecified Asthma complication type: unspecified Qualified Code(s): J45.998 - Other asthma (6) Cocaine dependence Current Visit: Yes (7) Bipolar disorder Current Visit: Yes (8) Opioid dependence Current Visit: Yes
[2018-01-31] MEDS ORDERED: PT OWN MED DRAWER 7, Y5N ONE (19:20)
[2018-01-31] MEDS: THIAMINE HCL 100 MG TABLET (FP) PO SCH (21:25)
[2018-01-31] MEDS: QUEtiapine FUMARATE 50 MG TABLET PO SCH (21:26)
[2018-02-01] MEDS: IBUPROFEN 400 MG TABLET (FP) PO PRN (02:59)
[2018-02-01] MEDS: METHADONE HCL 10 MG TABLET PO SCH (06:42)
[2018-02-01] MEDS: GABAPENTIN 100 MG CAPSULE (FP) PO SCH ×3 (06:42→21:11)
[2018-02-01] MEDS: METHYL SALICYLATE/MENTHOL OINT 30 GM TUBE TP SCH ×2 (09:50→21:13)
[2018-02-01] MEDS: HYDROCHLOROTHIAZIDE 12.5 MG CAPSULE (FP) PO SCH ×2 (09:50→21:12)
[2018-02-01] MEDS: PRENATAL VITAMINS W/ FOLIC ACID TABLET (FP) PO SCH (09:50)
[2018-02-01] MEDS: NICOTINE 21 MG/24 HOURS TOPICAL PATCH TD SCH (09:51)
[2018-02-01] MEDS: THIAMINE HCL 100 MG TABLET (FP) PO SCH (21:12)
[2018-02-01] MEDS: QUEtiapine FUMARATE 50 MG TABLET PO SCH (21:12)
[2018-02-02] MEDS ORDERED: PT OWN MED DRAWER 7, Y5N ONE ×3 (01:41→21:11)
[2018-02-02] MEDS: GABAPENTIN 100 MG CAPSULE (FP) PO SCH ×3 (06:44→21:46)
[2018-02-02] MEDS: METHADONE HCL 10 MG TABLET PO SCH (06:45)
[2018-02-02] MEDS: COLLOIDAL OATMEAL 1 BAR EACH TP PRN (10:07)
[2018-02-02] MEDS: NICOTINE 21 MG/24 HOURS TOPICAL PATCH TD SCH (10:07)
[2018-02-02] MEDS: HYDROCHLOROTHIAZIDE 12.5 MG CAPSULE (FP) PO SCH ×2 (10:07→21:47)
[2018-02-02] MEDS: PRENATAL VITAMINS W/ FOLIC ACID TABLET (FP) PO SCH (10:07)
[2018-02-02] MEDS: METHYL SALICYLATE/MENTHOL OINT 30 GM TUBE TP SCH ×2 (10:08→21:47)
[2018-02-02] MEDS: IBUPROFEN 400 MG TABLET (FP) PO PRN (17:05)
[2018-02-02] MEDS: THIAMINE HCL 100 MG TABLET (FP) PO SCH (21:45)
[2018-02-02] MEDS: QUEtiapine FUMARATE 50 MG TABLET PO SCH (21:47)
[2018-02-03] MEDS: GABAPENTIN 100 MG CAPSULE (FP) PO SCH ×3 (06:30→21:54)
[2018-02-03] MEDS: METHADONE HCL 10 MG TABLET PO SCH (06:30)
[2018-02-03] MEDS: PRENATAL VITAMINS W/ FOLIC ACID TABLET (FP) PO SCH (09:29)
[2018-02-03] MEDS: HYDROCHLOROTHIAZIDE 12.5 MG CAPSULE (FP) PO SCH ×2 (09:30→21:54)
[2018-02-03] MEDS: NICOTINE 21 MG/24 HOURS TOPICAL PATCH TD SCH (09:30)
[2018-02-03] MEDS: METHYL SALICYLATE/MENTHOL OINT 30 GM TUBE TP SCH ×2 (09:30→21:55)
[2018-02-03] MEDS: IBUPROFEN 400 MG TABLET (FP) PO PRN ×2 (12:33→22:57)
[2018-02-03] MEDS: THIAMINE HCL 100 MG TABLET (FP) PO SCH (21:54)
[2018-02-03] MEDS: QUEtiapine FUMARATE 50 MG TABLET PO SCH (21:55)
[2018-02-04] MEDS: GABAPENTIN 100 MG CAPSULE (FP) PO SCH ×3 (06:24→21:05)
[2018-02-04] MEDS: METHADONE HCL 10 MG TABLET PO SCH (06:24)
[2018-02-04] MEDS: HYDROCHLOROTHIAZIDE 12.5 MG CAPSULE (FP) PO SCH ×2 (09:41→21:05)
[2018-02-04] MEDS: PRENATAL VITAMINS W/ FOLIC ACID TABLET (FP) PO SCH (09:41)
[2018-02-04] MEDS: METHYL SALICYLATE/MENTHOL OINT 30 GM TUBE TP SCH ×2 (09:42→21:06)
[2018-02-04] MEDS: NICOTINE 21 MG/24 HOURS TOPICAL PATCH TD SCH (09:42)
[2018-02-04] MEDS ORDERED: PT OWN MED DRAWER 7, Y5N ONE (15:12)
[2018-02-04] MEDS: IBUPROFEN 400 MG TABLET (FP) PO PRN (18:29)
[2018-02-04] MEDS: THIAMINE HCL 100 MG TABLET (FP) PO SCH (21:05)
[2018-02-04] MEDS: QUEtiapine FUMARATE 50 MG TABLET PO SCH (21:05)
[2018-02-05] MEDS: METHADONE HCL 10 MG TABLET PO SCH (06:26)
[2018-02-05] MEDS: GABAPENTIN 100 MG CAPSULE (FP) PO SCH ×3 (06:26→21:09)
[2018-02-05] MEDS: HYDROCHLOROTHIAZIDE 12.5 MG CAPSULE (FP) PO SCH ×2 (10:09→21:08)
[2018-02-05] MEDS: PRENATAL VITAMINS W/ FOLIC ACID TABLET (FP) PO SCH (10:09)
[2018-02-05] MEDS: NICOTINE 21 MG/24 HOURS TOPICAL PATCH TD SCH (10:10)
[2018-02-05] MEDS: METHYL SALICYLATE/MENTHOL OINT 30 GM TUBE TP SCH (10:10)
[2018-02-05] MEDS: diphenhydrAMINE HCL 25 MG CAPSULE (FP) PO PRN (11:26)
--- NOTE | 2018-02-05 15:13 | PN ---
[facility] Progress Note Note: Vital Signs Temperature 98.1 F 02/05/18 06:00 Pulse Rate 78 02/05/18 09:22 Respiratory Rate 16 02/05/18 06:00 Blood Pressure 135/71 02/05/18 09:22 O2 Sat by Pulse Oximetry (%) c/o of left arm pain, requested lidocaine patch instead of bengay for pain. Reports improve in mobility after suffering injury to the are about to weeks ago. Prior to admission to rehab, patient was evaluated in the ED with Neg x- ray on the left arm. patient Aox3 no distress no adventitious breath sounds full rom, + left arm pain - left arm pain secondary to injury Plan: ibuprofen PRN lidocaine patch QD PRN TP for left arm pain
[2018-02-05] MEDS: LIDOCAINE 5% TOPICAL PATCH TP SCH (15:33)
[2018-02-05] MEDS: IBUPROFEN 400 MG TABLET (FP) PO PRN (17:10)
[2018-02-05] MEDS ORDERED: PT OWN MED DRAWER 7, Y5N ONE (21:06)
[2018-02-05] MEDS: LIDOCAINE PATCH REMOVAL MC SCH (21:09)
[2018-02-05] MEDS: QUEtiapine FUMARATE 50 MG TABLET PO SCH (21:09)
[2018-02-05] MEDS: THIAMINE HCL 100 MG TABLET (FP) PO SCH (21:09)
[2018-02-06] MEDS: GABAPENTIN 100 MG CAPSULE (FP) PO SCH ×3 (06:09→22:46)
[2018-02-06] MEDS: METHADONE HCL 10 MG TABLET PO SCH (06:09)
[2018-02-06] MEDS: LIDOCAINE 5% TOPICAL PATCH TP SCH (09:46)
[2018-02-06] MEDS: HYDROCHLOROTHIAZIDE 12.5 MG CAPSULE (FP) PO SCH ×2 (09:46→22:46)
[2018-02-06] MEDS: PRENATAL VITAMINS W/ FOLIC ACID TABLET (FP) PO SCH (09:46)
[2018-02-06] MEDS: NICOTINE 21 MG/24 HOURS TOPICAL PATCH TD SCH (09:46)
[2018-02-06] MEDS ORDERED: PT OWN MED DRAWER 7, Y5N ONE (14:15)
[2018-02-06] MEDS: diphenhydrAMINE HCL 25 MG CAPSULE (FP) PO PRN (19:10)
[2018-02-06] MEDS: LIDOCAINE PATCH REMOVAL MC SCH (22:45)
[2018-02-06] MEDS: THIAMINE HCL 100 MG TABLET (FP) PO SCH (22:45)
[2018-02-06] MEDS: QUEtiapine FUMARATE 50 MG TABLET PO SCH (22:45)
[2018-02-06] MEDS: IBUPROFEN 400 MG TABLET (FP) PO PRN (22:45)
[2018-02-07] MEDS ORDERED: PT OWN MED DRAWER 7, Y5N ONE (00:05)
[2018-02-07] MEDS: GABAPENTIN 100 MG CAPSULE (FP) PO SCH ×3 (06:31→22:41)
[2018-02-07] MEDS: METHADONE HCL 10 MG TABLET PO SCH (06:31)
[2018-02-07] MEDS: IBUPROFEN 400 MG TABLET (FP) PO PRN (08:38)
[2018-02-07] MEDS: HYDROCHLOROTHIAZIDE 12.5 MG CAPSULE (FP) PO SCH ×2 (10:53→22:41)
[2018-02-07] MEDS: PRENATAL VITAMINS W/ FOLIC ACID TABLET (FP) PO SCH (10:53)
[2018-02-07] MEDS: LIDOCAINE 5% TOPICAL PATCH TP SCH (10:53)
[2018-02-07] MEDS: NICOTINE 21 MG/24 HOURS TOPICAL PATCH TD SCH (10:55)
[2018-02-07] MEDS: LIDOCAINE PATCH REMOVAL MC SCH (22:41)
[2018-02-07] MEDS: QUEtiapine FUMARATE 50 MG TABLET PO SCH (22:41)
[2018-02-07] MEDS: THIAMINE HCL 100 MG TABLET (FP) PO SCH (22:41)
[2018-02-08] MEDS: METHADONE HCL 10 MG TABLET PO SCH (06:49)
[2018-02-08] MEDS: IBUPROFEN 400 MG TABLET (FP) PO PRN (06:50)
[2018-02-08] MEDS: GABAPENTIN 100 MG CAPSULE (FP) PO SCH ×3 (06:50→21:12)
[2018-02-08] MEDS: PRENATAL VITAMINS W/ FOLIC ACID TABLET (FP) PO SCH (09:47)
[2018-02-08] MEDS: HYDROCHLOROTHIAZIDE 12.5 MG CAPSULE (FP) PO SCH ×2 (09:47→21:12)
[2018-02-08] MEDS: LIDOCAINE 5% TOPICAL PATCH TP SCH (09:47)
[2018-02-08] MEDS: NICOTINE 21 MG/24 HOURS TOPICAL PATCH TD SCH (09:49)
[2018-02-08] MEDS: COLLOIDAL OATMEAL 1 BAR EACH TP PRN (10:53)
[2018-02-08] MEDS: hydrOXYzine PAMOATE 50 MG CAPSULE (FP) PO PRN ×2 (13:40→18:27)
[2018-02-08] MEDS: QUEtiapine FUMARATE 50 MG TABLET PO SCH (21:12)
[2018-02-08] MEDS: THIAMINE HCL 100 MG TABLET (FP) PO SCH (21:12)
[2018-02-08] MEDS: LIDOCAINE PATCH REMOVAL MC SCH (21:12)
[2018-02-09] MEDS: IBUPROFEN 400 MG TABLET (FP) PO PRN ×2 (01:51→21:35)
[2018-02-09] MEDS: METHADONE HCL 10 MG TABLET PO SCH (07:01)
[2018-02-09] MEDS: GABAPENTIN 100 MG CAPSULE (FP) PO SCH ×3 (07:01→22:04)
[2018-02-09] MEDS ORDERED: PT OWN MED DRAWER 7, Y5N ONE ×2 (08:34→19:17)
[2018-02-09] MEDS: LIDOCAINE 5% TOPICAL PATCH TP SCH (09:32)
[2018-02-09] MEDS: HYDROCHLOROTHIAZIDE 12.5 MG CAPSULE (FP) PO SCH ×2 (09:32→21:35)
[2018-02-09] MEDS: PRENATAL VITAMINS W/ FOLIC ACID TABLET (FP) PO SCH (09:32)
[2018-02-09] MEDS: NICOTINE 21 MG/24 HOURS TOPICAL PATCH TD SCH (09:33)
[2018-02-09] MEDS: hydrOXYzine PAMOATE 50 MG CAPSULE (FP) PO PRN ×2 (13:36→22:04)
[2018-02-09] MEDS: THIAMINE HCL 100 MG TABLET (FP) PO SCH (21:35)
[2018-02-09] MEDS: LIDOCAINE PATCH REMOVAL MC SCH (22:04)
[2018-02-09] MEDS: QUEtiapine FUMARATE 50 MG TABLET PO SCH (22:04)
[2018-02-10] MEDS ORDERED: METHADONE HCL 10 MG TABLET PO SCH (06:00)
[2018-02-10] MEDS: GABAPENTIN 100 MG CAPSULE (FP) PO SCH ×3 (06:52→21:14)
[2018-02-10] MEDS: METHADONE HCL 10 MG TABLET PO SCH (06:52)
[2018-02-10] MEDS: IBUPROFEN 400 MG TABLET (FP) PO PRN ×2 (06:53→21:12)
[2018-02-10] MEDS: LIDOCAINE 5% TOPICAL PATCH TP SCH (10:40)
[2018-02-10] MEDS: HYDROCHLOROTHIAZIDE 12.5 MG CAPSULE (FP) PO SCH ×2 (10:40→21:12)
[2018-02-10] MEDS: PRENATAL VITAMINS W/ FOLIC ACID TABLET (FP) PO SCH (10:40)
[2018-02-10] MEDS: NICOTINE 21 MG/24 HOURS TOPICAL PATCH TD SCH (10:40)
[2018-02-10] MEDS ORDERED: PT OWN MED DRAWER 7, Y5N ONE ×2 (14:59→21:09)
[2018-02-10] MEDS: QUEtiapine FUMARATE 50 MG TABLET PO SCH (21:12)
[2018-02-10] MEDS: THIAMINE HCL 100 MG TABLET (FP) PO SCH (21:13)
[2018-02-10] MEDS: hydrOXYzine PAMOATE 50 MG CAPSULE (FP) PO PRN (21:13)
[2018-02-10] MEDS: LIDOCAINE PATCH REMOVAL MC SCH (21:14)
[2018-02-11] MEDS: METHADONE HCL 10 MG TABLET PO SCH (06:22)
[2018-02-11] MEDS: GABAPENTIN 100 MG CAPSULE (FP) PO SCH ×3 (06:22→21:58)
[2018-02-11] MEDS: PRENATAL VITAMINS W/ FOLIC ACID TABLET (FP) PO SCH (11:07)
[2018-02-11] MEDS: LIDOCAINE 5% TOPICAL PATCH TP SCH (11:07)
[2018-02-11] MEDS: HYDROCHLOROTHIAZIDE 12.5 MG CAPSULE (FP) PO SCH ×2 (11:07→21:58)
[2018-02-11] MEDS: NICOTINE 21 MG/24 HOURS TOPICAL PATCH TD SCH (11:07)
[2018-02-11] MEDS: hydrOXYzine PAMOATE 50 MG CAPSULE (FP) PO PRN ×2 (11:08→17:27)
[2018-02-11] MEDS: IBUPROFEN 400 MG TABLET (FP) PO PRN (14:37)
[2018-02-11] MEDS: COLLOIDAL OATMEAL 1 BAR EACH TP PRN (15:20)
--- NOTE | 2018-02-11 16:45 | PN ---
[facility] Progress Note Note: Vital Signs Temperature 98.4 F 02/11/18 07:01 Pulse Rate 81 02/11/18 09:11 Respiratory Rate 18 02/11/18 07:01 Blood Pressure 143/88 02/11/18 09:11 O2 Sat by Pulse Oximetry (%) Patient medically stable. Patient scheduled to complete this program 02/12/18. Patient to follow up with referral to [facility] and follow up with her primary medical provider 1 - 2 weeks.
[2018-02-11] MEDS ORDERED: PT OWN MED DRAWER 7, Y5N ONE ×2 (21:10→23:53)
[2018-02-11] MEDS: LIDOCAINE PATCH REMOVAL MC SCH (21:58)
[2018-02-11] MEDS: QUEtiapine FUMARATE 50 MG TABLET PO SCH (21:59)
[2018-02-11] MEDS: THIAMINE HCL 100 MG TABLET (FP) PO SCH (21:59)
[2018-02-12] MEDS: GABAPENTIN 100 MG CAPSULE (FP) PO SCH (06:31)
[2018-02-12] MEDS: METHADONE HCL 10 MG TABLET PO SCH (06:31)
[2018-02-12] MEDS: IBUPROFEN 400 MG TABLET (FP) PO PRN (06:33)
[2018-02-12 06:56] VITALS: TEMP 98
--- NOTE | 2018-02-12 08:56 | PN ---
Psychiatric Progress Note Vital Signs: Vital Signs Period Temp Pulse Resp BP Sys/Penaloza Pulse Ox Last 24 Hr 98.0 F 73-83 16 126-147/75-88 Date of Session: 02/12/18 Chief Complaint:: Discharge visit HPI: Opioid,Alcohol,Cocaine dependence comorbid with Bipolar disorder. ROS: BA,Anemia,Arthritis. Current Medications: Active Medications Generic Name Dose Route Start Last Admin Trade Name Freq PRN Reason Stop Dose Admin Acetaminophen 650 mg 01/24/18 13:30 Tylenol - PO Q4H PRN FEVER Al Hydroxide/Mg Hydroxide 30 ml 01/24/18 13:30 Mylanta Oral Suspension - PO Q6H PRN DYSPEPSIA Colloidal Oatmeal 1 applic 01/27/18 14:27 02/11/18 15:20 Aveeno Soap - TP 1 bar DAILY PRN Administration HYGEINE Diphenhydramine HCl 25 mg 01/27/18 14:27 02/06/18 19:10 Benadryl - PO 25 mg Q6H PRN Administration FOR ITCHING Eucalyptus/Menthol/Phenol/Sorbitol 1 each 01/24/18 13:30 Cepastat Lozenge - MM Q4H PRN SORE THROAT Gabapentin 200 mg 01/31/18 22:00 02/12/18 06:31 Neurontin - PO 200 mg TID OFELIA Administration Guaifenesin 10 ml 01/24/18 13:30 Robitussin Dm - PO Q6H PRN COUGH Hydrochlorothiazide 12.5 mg 01/24/18 14:10 02/11/18 21:58 Hctz - PO Not Given BID OFELIA Hydroxyzine Pamoate 50 mg 01/24/18 13:30 02/11/18 17:27 Vistaril - PO 50 mg Q4H PRN Administration AGITATION Ibuprofen 400 mg 01/24/18 13:30 02/12/18 06:33 Motrin - PO 400 mg Q6H PRN Administration Pain level 4-6 Lidocaine 1 patch 02/05/18 15:15 02/11/18 11:07 Lidoderm Patch - TP 1 patch DAILY OFELIA Administration Loperamide HCl 4 mg 01/24/18 13:30 Imodium - PO Q6H PRN DIARRHEA Magnesium Citrate 300 ml 01/24/18 13:30 Citroma - PO Q48H PRN CONSTIPATION Magnesium Hydroxide 30 ml 01/24/18 13:30 Milk Of Magnesia - PO DAILY PRN CONSTIPATION Melatonin 5 mg 01/24/18 22:00 Melatonin PO HS PRN INSOMNIA Methadone HCl 10 mg 02/09/18 06:00 02/12/18 06:31 Dolophine - PO 10 mg DAILY@0600 [facility] Administration Miscellaneous 1 each 02/05/18 22:00 02/11/18 21:58 Lidoderm Patch Removal MC Not Given DAILY@2200 [facility] Nicotine 21 mg 01/25/18 10:00 02/11/18 11:07 Nicoderm Patch - TD Not Given DAILY [facility] Nicotine Polacrilex 2 mg 01/24/18 13:30 Nicorette Gum - BUC Q2H PRN NICOTINE REPLACEMENT RX Multivit/Folic Acid/Iron 1 tab 01/25/18 10:00 02/11/18 11:07 Vitamins (Sjr) - PO Not Given DAILY [facility] Pseudoephedrine/Triprolidine 1 combo 01/24/18 13:30 Actifed - PO TID PRN NASAL CONGESTION Quetiapine Fumarate 50 mg 01/31/18 22:00 02/11/18 21:59 Seroquel - PO Not Given HS OFELIA Thiamine HCl 100 mg 01/24/18 22:00 02/11/18 21:59 Vitamin B1 - PO Not Given HS [facility] Current Side Effect: No Lab tests ordered: No Lab tests reviewed: Yes Provider note:: Patient completed this program today.She has met her treatment goals and will continue to address her issues at [facility] program.Patient reports finding current medications help to cope with depression ,mood instablity,anxiety.Scripts for 30 days provided. Therpay provided focusing on relapse prevention. Patient is stable for discharge today. Total face to face time:: 30 Mental Status Exam - Mental Status Exam Alert and Oriented to: Time, Place, Person Cognitive Function: Grossly Intact Patient Appearance: Well Groomed Mood: Euthymic Affect: Mood Congruent, Normal Range Patient Behavior: Cooperative Speech Pattern: Clear Voice Loudness: Normal Thought Process: Goal Oriented Thought Disorder: Not Present Hallucinations: Denies Suicidal Ideation: Denies Homicidal Ideation: Denies Insight/Judgement: Fair Sleep: Fair Appetite: Fair Muscle strength/Tone: Normal Gait/Station: Normal Psychiatric Treatment Plan - Problem List (1) Opioid dependence on agonist therapy Comment: on MTTP at [facility] (2) Alcohol dependence Qualifiers: Substance use status: unspecified alcohol-induced disorder Qualified Code(s ): F10.29 - Alcohol dependence with unspecified alcohol-induced disorder (3) Anemia Qualifiers: Anemia type: unspecified type Qualified Code(s): D64.9 - Anemia, unspecified (5) Asthma Qualifiers: Asthma severity: mild Asthma persistence: unspecified Asthma complication type: unspecified Qualified Code(s): J45.998 - Other asthma
[2018-02-12 09:24] VITALS: BP 133/93; PULSE 81
[2018-02-12] MEDS: HYDROCHLOROTHIAZIDE 12.5 MG CAPSULE (FP) PO SCH (09:29)
[2018-02-12] MEDS: LIDOCAINE 5% TOPICAL PATCH TP SCH (09:30)
[2018-02-12] MEDS: NICOTINE 21 MG/24 HOURS TOPICAL PATCH TD SCH (09:30)
[2018-02-12] MEDS: hydrOXYzine PAMOATE 50 MG CAPSULE (FP) PO PRN (09:31)
[2018-02-12] MEDS: PRENATAL VITAMINS W/ FOLIC ACID TABLET (FP) PO SCH (09:31)
== END 2018-02-12 09:50 | disposition home or self-care (01) | DRG 772 ==
LOC: YASAS 10:29 → Y3E 13:53
PROVIDERS: ADMIT Psychiatry & Neurology Psychiatry; ATTEND Psychiatry & Neurology Psychiatry
PROC: HZ42ZZZ Group Counseling for Substance Abuse Treatment, Cognitive-Behavioral (ICD-10-PCS; principal; 2018-01-24)
DX: F10.20 Alcohol dependence, uncomplicated (principal); F11.20 Opioid dependence, uncomplicated; F14.20 Cocaine dependence, uncomplicated; F17.210 Nicotine dependence, cigarettes, uncomplicated; F31.9 Bipolar disorder, unspecified; I10 Essential (primary) hypertension; D64.9 Anemia, unspecified; M19.90 Unspecified osteoarthritis, unspecified site; J45.998 Other asthma; M79.602 Pain in left arm; L29.9 Pruritus, unspecified; M54.5 Low back pain; G89.29 Other chronic pain; Z87.898 Personal history of other specified conditions
CPT/HCPCS: 81003; 81015; 93005; 93010

== ENCOUNTER 2018-06-04 09:37 | Inpatient (IN) | payer OTHER ==
[2018-06-04 09:57] VITALS: BMI 19.5
--- NOTE | 2018-06-04 10:44 | HP ---
COWS - Scale Resting Pulse: 0= [place] 80 or Below Sweatin= Chills/Flushing Restless Observation: 3= Extraneous Movement Pupil Size: 1= Pupils >than Normal Bone or Joint Aches: 2= Severe Diffuse Aches Runny Nose/ Eye Tearin= Runny Nose/Eyes GI Upset > 30mins: 2= Nausea/Diarrhea Tremor Observation: 2= Slight Tremor Visible Yawning Observation: 1= 1-2x During Session Anxiety or Irritability: 2=Irritable/Anxious Goose Flesh Skin: 0=Smooth Skin COWS Score: 16 CIWA Score - Admission Criteria [facility]ASAS Guidelines: Admission for Medically Managed Detox: Requires at least one of the followin. CIWA greater than 12 2. Seizures within the past 24 hours 3. Delirium tremens within the past 24 hours 4. Hallucinations within the past 24 hours 5. Acute intervention needed for co occurring medical disorder 6. Acute intervention needed for co occurring psychiatric disorder 7. Severe withdrawal that cannot be handled at a lower level of care (continued vomiting, continued diarrhea, abnormal vital signs) requiring intravenous medication and/or fluids 8. Admission ROS S - HPI Chief Complaint: i need help to stop using heroin,alcohol and cocaine Allergies/Adverse Reactions: Allergies Allergy/AdvReac Type Severity Reaction Status Date / Time No Known Allergies Allergy Verified 06/04/18 09:53 History of Present Illness: this 52 years old female with heroin dependence,alcohol and ne dependence, seeking help,detox,withdrawal symptom, last treatment [facility] 01/14/18 to 01/17/18 rehab 01/21/18 to 02/12/18 nicotine dependence weight loss multiple admissions in detox but keep relapsing longest period of sobriety 3 years bipolar disorder plan to go to reab after detox Exam Limitations: No Limitations - Ebola screening Have you traveled outside of the country in the last 21 days: No Have you had contact with anyone from an Ebola affected area: No Have you been sick,other than usual withdrawal symptoms: No Do you have a fever: No - Review of Systems Constitutional: Chills, Loss of Appetite, Malaise, Night Sweats, Changes in sleep, Weakness, Unintentional Wgt. Loss EENT: reports: Tearing, Nose Congestion Respiratory: reports: No Symptoms reported Cardiac: reports: No Symptoms Reported GI: reports: Nausea, Poor Appetite, Vomiting, Abdominal cramping : reports: No Symptoms Reported Musculoskeletal: reports: Back Pain, Joint Pain, Muscle Pain, Joint Stiffness Integumentary: reports: Dryness Neuro: reports: Headache, Tremors Endocrine: reports: No Symptoms Reported Hematology: reports: No Symptoms Reported Psychiatric: reports: No Sypmtoms Reported, Judgement Intact, Mood/Affect Appropiate, Orientated x3, other (bipolar disorder) Patient History - Patient Medical History Hx Anemia: Yes (on iron pill) Hx Asthma: Yes (ON MDI) Hx Chronic Obstructive Pulmonary Disease (COPD): No Hx Cancer: No Hx Cardiac Disorders: No Hx Congestive Heart Failure: No Hx Hypertension: Yes (ON MEDS) Hx Hypercholesterolemia: No Hx Pacemaker: No HX Cerebrovascular Accident: No Hx Seizures: No Hx Dementia: No Hx Diabetes: No Hx Gastrointestinal Disorders: No Hx Liver Disease: No Hx Genitourinary Disorders: No Hx Sexually Transmitted Disorders: No Hx Renal Disease (ESRD): No Hx Thyroid Disease: No Hx Human Immunodeficiency Virus (HIV): No (last 01/2017 negative) Hx Hepatitis C: No Hx Depression: No Hx Suicide Attempt: No Hx Bipolar Disorder: Yes (SEROQUEL/CLONIDINE) Hx Schizophrenia: No Other Medical History: fx left ankle in 06/20 - Patient Surgical History Past Surgical History: Yes Hx Neurologic Surgery: No Hx Cataract Extraction: No Hx Cardiac Surgery: No Hx Lung Surgery: No Hx Breast Surgery: No Hx Breast Biopsy: No Hx Abdominal Surgery: Yes (TUBAL LIGATION) Hx Appendectomy: No Hx Cholecystectomy: No Hx Genitourinary Surgery: No Hx Section: No Hx Orthopedic Surgery: Yes (laft ankle at [facility]) Other Surgical History: tubal ligation in 2000 Anesthesia Reaction: No - PPD History Previous Implant?: Yes Documented Results: Negative w/proof Date: 06/07/17 Results: 0mm PPD to be Administered?: No - Reproductive History Last Menstrual Period: 05/17/17 Patient : No - Smoking Cessation Smoking history: Current every day smoker Have you smoked in the past 12 months: Yes Aproximately how many cigarettes per day: 3 Cigars Per Day: 0 Hx Chewing Tobacco Use: No Initiated information on smoking cessation: Yes 'Breaking Loose' booklet given: 06/04/18 - Substance & Tx. History Hx Alcohol Use: Yes Hx Substance Use: Yes Substance Use Type: Alcohol, Cocaine, Heroin Hx Substance Use Treatment: Yes ([facility] 01/14/18 to 01/17/18 rehab 01/21/18 to 05/20) - Substances Abused Heroin Route: Inhalation Frequency: Daily Amount used: 1 BUNDLE Age of first use: 36 Date of Last Use: 06/03/18 Crack Route: Smoking Frequency: 3-6 times per week Amount used: 3-4 BAGS Age of first use: 23 Date of Last Use: 06/03/18 Alcohol Route: Oral Frequency: 1-2 times per week Amount used: 3 12OZ BOTTLE OF WINE COOLERS Age of first use: 18 Date of Last Use: 06/03/18 Family Disease History - Family Disease History Family Disease History: Heart Disease: Father (ALCOHOLIC,HTN,), Mother ( HTN), Other: Father Admission Physical Exam [facility] - Vital Signs Vital Signs: Vital Signs - 24 hr 06/04/18 09:54 Temperature 97.1 F L Pulse Rate 79 Respiratory 17 Rate Blood Pressure 119/86 - Physical General Appearance: Yes: Moderate Distress, Tremorous, Irritable, Sweating, Anxious HEENTM: Yes: Normal ENT Inspection, TRESA, Pharynx Normal Respiratory: Yes: Within Normal Limits, Lungs Clear, Normal Breath Sounds Neck: Yes: Within Normal Limits, Supple, Trachea in good position Breast: Yes: Breast Exam Deferred Cardiology: Yes: Within Normal Limits, Regular Rhythm, Regular Rate, S1, S2 Abdominal: Yes: Normal Bowel Sounds, Non Tender, Flat, Soft, Organomegaly Genitourinary: Yes: Within Normal Limits Back: Yes: Muscle Spasm Musculoskeletal: Yes: full range of Motion, Back pain, Muscle Pain Extremities: Yes: Within Normal Limits, Normal Range of Motion, Tremors, Other ( scar left ankle) Neurological: Yes: vaccine key customer leader II-XII NML intact, Fully Oriented, Alert, Motor Strength 5/5 Integumentary: Yes: Within Normal Limits, Dry Lymphatic: Yes: Within Normal Limits - Diagnostic (1) Opioid dependence with withdrawal Current Visit: Yes Status: Acute (2) Opioid dependence with withdrawal Current Visit: Yes Status: Acute (3) Cocaine dependence Current Visit: No Status: Chronic (4) Syncope Current Visit: No Status: Acute (5) Weight decreased Current Visit: No Status: Acute (6) Alcohol dependence Current Visit: No Status: Chronic Qualifiers: Substance use status: unspecified alcohol-induced disorder Qualified Code(s ): F10.29 - Alcohol dependence with unspecified alcohol-induced disorder (7) Arthritis Current Visit: No Status: Chronic (8) Asthma Current Visit: No Status: Chronic Qualifiers: Asthma severity: mild Asthma persistence: unspecified Asthma complication type: unspecified Qualified Code(s): J45.909 - Unspecified asthma , uncomplicated (9) Bipolar disorder Current Visit: No Status: Chronic (10) Low back pain Current Visit: No Status: Chronic Qualifiers: Chronicity: chronic (11) Bipolar disorder Current Visit: Yes Status: Acute Cleared for Admission [facility] - Detox or Rehab [facility] Level of Care: Medically Managed Detox Regimen/Protocol: Methadone [facility] Breath Alcohol Content Breath Alcohol Content: 0.004 Urine Pregancy Test - Result Urine Test Results: Negative- NO Line Present Urine Drug Screen - Results Drug Screen Negative: No Urine Drug Screen Results: CHRIS-Cocaine, OPI-Opiates
[2018-06-04] MEDS ORDERED: ACETAMINOPHEN 325 MG TABLET (FP) PO PRN (10:54)
[2018-06-04] MEDS ORDERED: MAG HYDROX/AL HYDROX/SIMETH 30 ML UNIT-DOSE CUP PO PRN (10:54)
[2018-06-04] MEDS ORDERED: LOPERAMIDE HCL 2 MG CAPSULE PO PRN (10:54)
[2018-06-04] MEDS ORDERED: MENTHOL/PHENOL 1 EACH UD MM PRN (10:54)
[2018-06-04] MEDS ORDERED: P-EPHED 60MG/TRIPROLIDI 2.5MG TABLET PO PRN (10:54)
[2018-06-04] MEDS ORDERED: MAGNESIUM HYDROX 2400MG/30ML ORAL SUSPENSION 30 ML CUP PO PRN (10:54)
[2018-06-04] MEDS ORDERED: guaiFENesin/D-METHORPHAN HB 10 ML UNIT-DOSE CUPS PO PRN (10:54)
[2018-06-04] MEDS ORDERED: MAGNESIUM CITRATE 300 ML BOTTLE PO PRN (10:54)
[2018-06-04] MEDS ORDERED: METHADONE HCL 10 MG TABLET (FOR DETOX USE ONLY) PO ONE ×2 (11:30→23:00)
[2018-06-04] MEDS ORDERED: MELATONIN 5 MG TABLETS PO PRN (22:00)
[2018-06-04] MEDS: THIAMINE HCL 100 MG TABLET (FP) PO SCH (22:12)
[2018-06-04] MEDS: diazePAM 5 MG TABLET PO PRN (22:13)
[2018-06-05] MEDS ORDERED: METHADONE HCL 10 MG TABLET (FOR DETOX USE ONLY) PO ONE (10:00)
[2018-06-05 10:13] LABS: MCH 28.6 pg (25.7-33.7); MCHC 31.8 g/dl (32.0-36.0); MEAN CELL VOLUME 90.1 fl (80-96); MEAN PLT VOLUME 9.1 fl (7.5-11.1); PLATELET COUNT 278 K/MM3 (134-434); RBC 4.55 M/mm3 (3.60-5.2); RDW 14.6 % (11.6-15.6); WHITE BLOOD COUNT 5.6 K/mm3 (4.0-10.0)
[2018-06-05] MEDS: PRENATAL VITAMINS W/ FOLIC ACID TABLET (FP) PO SCH (10:44)
[2018-06-05 10:47] LABS: ALK PHOS 151 U/L (45-117); ANION GAP 8 MMOL/L (8-16); BILIRUBIN,TOTAL 0.3 mg/dL (0.2-1); BLOOD UREA NITROGEN 16 mg/dL (7-18); CALCIUM 9.2 mg/dL (8.5-10.1); CHLORIDE 104 mmol/L (98-107); CO2 28 mmol/L (21-32); CREATININE 0.8 mg/dL (0.55-1.3); GLUCOSE,RANDOM 90 mg/dL (74-106); POTASSIUM 3.7 mmol/L (3.5-5.1); SGOT/AST 28 U/L (15-37); SGPT/ALT 26 U/L (13-61); SODIUM 140 mmol/L (136-145); TOT PROT 7.3 g/dl (6.4-8.2)
--- NOTE | 2018-06-05 12:17 | CONSULT ---
[facility] Psychiatric Consult - Data Date of interview: 06/05/17 Admission source: [facility] Identifying data: Patient is a 52 year old single female, mother of four, domiciled and currently unemployed. This is one of multiple admissions for patient. Patient admitted to for alcohol, cocaine, and opiate dependence. Substance Abuse History: Smoking Cessation. Smoking history: Current every day smoker. Have you smoked in the past 12 months: Yes. Aproximately how many cigarettes per day: 3. Cigars Per Day: 0. Hx Chewing Tobacco Use: No. Initiated information on smoking cessation: Yes. 'Breaking Loose' booklet given : 06/04/18. - Substance & Tx. History. Hx Alcohol Use: Yes. Hx Substance Use : Yes. Substance Use Type: Alcohol, Cocaine, Heroin. Hx Substance Use Treatment: Yes ([facility] 01/14/18 to 01/17/18 rehab 01/21/18 to 02/12/18). - Substances Abused. Heroin. Route: Inhalation. Frequency: Daily. Amount used: 1 BUNDLE. Age of first use: 36. Date of Last Use: 06/03/18. Crack. Route: Smoking. Frequency: 3-6 times per week. Amount used: 3-4 BAGS. Age of first use: 23. Date of Last Use: 06/03/18. Alcohol. Route: Oral. Frequency: 1-2 times per week. Amount used: 3 12OZ BOTTLE OF WINE COOLERS. Age of first use: 18. Date of Last Use: 06/03/18 Medical History: Anemia, asthma, hypertension,fx left ankle in 06/20, tubal ligation Psychiatric History: Patient reports multiple psychiatric hospitalizations in the at [facility] in [place]. Self reports history of bipolar disorder. She reports chronic nonadherence to outpatient psychiatric care. Ms. Calvo reports past history of accepting seroquel 50mg qhs. She denies h/o suicide attempt. Physical/Sexual Abuse/Trauma History: Denies. Mental Status Exam - Mental Status Exam Alert and Oriented to: Time, Place, Person Cognitive Function: Good Patient Appearance: Well Groomed Mood: Irritable (Slightly irritable) Affect: Appropriate Patient Behavior: Guarded Speech Pattern: Clear Voice Loudness: Normal Thought Process: Intact, Goal Oriented Thought Disorder: Not Present Hallucinations: Denies Suicidal Ideation: Denies Homicidal Ideation: Denies Insight/Judgement: Poor Sleep: Poorly Appetite: Fair Muscle strength/Tone: Normal Gait/Station: Normal Psychiatric Findings - Problem List (Gordon 1, 2,3) (1) Substance induced mood disorder Current Visit: Yes Status: Acute (2) Opioid dependence with withdrawal Current Visit: Yes Status: Acute (3) Alcohol dependence Current Visit: Yes Status: Chronic Qualifiers: Substance use status: unspecified alcohol-induced disorder Qualified Code(s ): F10.29 - Alcohol dependence with unspecified alcohol-induced disorder (4) Cocaine dependence Current Visit: No Status: Chronic (5) Substance-induced sleep disorder Current Visit: Yes Status: Acute - Initial Treatment Plan Initial Treatment Plan: Psychoeducation provided. Detoxification in progress. Will order Seroquel 25mg qhs (as per patient's request). Benefits and side effects discussed. Verbal consent given.
--- NOTE | 2018-06-05 14:48 | PN ---
BHS COWS - Scale Resting Pulse: 0= [place] 80 or Below Sweatin= Chills/Flushing Restless Observation: 0= Sits Still Pupil Size: 0= Normal to Room Light Bone or Joint Aches: 2= Severe Diffuse Aches Runny Nose/ Eye Tearin= Runny Nose/Eyes GI Upset > 30mins: 1= Stomach Cramp Tremor Observation of Outstretched Hands: 2= Slight Tremor Visible Yawning Observation: 1= 1-2x During Session Anxiety or Irritability: 2=Irritable/Anxious Goose Flesh Skin: 0=Smooth Skin COWS Score: 11 BHS Progress Note (SOAP) Subjective: Stomach Cramping, Sweating, Hot / Cold Sensations, Fatigue, Poor Appetite, Interrupted Sleep. Objective: PATIENT A & O X 3, OBSERVED AMBULATING ON UNIT. IN NO ACUTE DISTRESS. 06/05/18 14:49 Vital Signs Temperature 97.3 F L 06/05/18 14:24 Pulse Rate 70 06/05/18 14:24 Respiratory Rate 18 06/05/18 14:24 Blood Pressure 133/92 06/05/18 14:24 O2 Sat by Pulse Oximetry (%) Laboratory Tests 06/04/18 06/05/18 06/05/18 11:35 06:00 06:00 WBC 5.6 RBC 4.55 Hgb 13.0 Hct 41.0 MCV 90.1 MCH 28.6 MCHC 31.8 L RDW 14.6 Plt Count 278 MPV 9.1 Sodium 140 Potassium 3.7 Chloride 104 Carbon Dioxide 28 Anion Gap 8 BUN 16 Creatinine 0.8 Creat Clearance w eGFR > 60 Random Glucose 90 Calcium 9.2 Total Bilirubin 0.3 AST 28 ALT 26 Alkaline Phosphatase 151 H Total Protein 7.3 Albumin 4.0 RPR Titer HIV 1&2 Antibody Screen Negative HIV P24 Antigen Negative 06/05/18 06:00 WBC RBC Hgb Hct MCV MCH MCHC RDW Plt Count MPV Sodium Potassium Chloride Carbon Dioxide Anion Gap BUN Creatinine Creat Clearance w eGFR Random Glucose Calcium Total Bilirubin AST ALT Alkaline Phosphatase Total Protein Albumin RPR Titer Nonreactive HIV 1&2 Antibody Screen HIV P24 Antigen LABS NOTED. Assessment: 06/05/18 14:49 WITHDRAWAL SYMPTOMS. Plan: CONTINUE DETOX.
[2018-06-05] MEDS: GABAPENTIN 100 MG CAPSULE (FP) PO SCH ×2 (15:48→22:35)
[2018-06-05] MEDS: IBUPROFEN 400 MG TABLET (FP) PO PRN (18:12)
[2018-06-05] MEDS: THIAMINE HCL 100 MG TABLET (FP) PO SCH (22:34)
[2018-06-05] MEDS: diazePAM 5 MG TABLET PO PRN (22:35)
[2018-06-05] MEDS: QUEtiapine FUMARATE 25 MG TABLET (FP) PO SCH (22:37)
[2018-06-06] MEDS: GABAPENTIN 100 MG CAPSULE (FP) PO SCH ×3 (05:21→22:22)
[2018-06-06] MEDS: IBUPROFEN 400 MG TABLET (FP) PO PRN ×3 (07:11→22:48)
[2018-06-06] MEDS ORDERED: METHADONE HCL 5 MG TABLET (FOR DETOX USE ONLY) PO ONE (10:00)
[2018-06-06] MEDS: PRENATAL VITAMINS W/ FOLIC ACID TABLET (FP) PO SCH (10:57)
[2018-06-06] MEDS: hydrOXYzine PAMOATE 25 MG CAPSULE (FP) PO PRN (10:58)
--- NOTE | 2018-06-06 18:51 | PN ---
BHS COWS - Scale Resting Pulse: 0= [place] 80 or Below Sweatin= Chills/Flushing Restless Observation: 1= Difficult to Sit Still Pupil Size: 0= Normal to Room Light Bone or Joint Aches: 4=Acute Joint/Muscle Pain Runny Nose/ Eye Tearin= None GI Upset > 30mins: 0= None Tremor Observation of Outstretched Hands: 0= None Yawning Observation: 0= None Anxiety or Irritability: 2=Irritable/Anxious Goose Flesh Skin: 0=Smooth Skin COWS Score: 8 BHS Progress Note (SOAP) Subjective: Body Aches, Anxious. Objective: PATIENT A & O X 3, OBSERVED AMBULATING ON UNIT. IN NO ACUTE DISTRESS. 06/06/18 18:51 Vital Signs Temperature 98.2 F 06/06/18 15:56 Pulse Rate 61 06/06/18 15:56 Respiratory Rate 18 06/06/18 15:56 Blood Pressure 118/76 06/06/18 15:56 O2 Sat by Pulse Oximetry (%) Laboratory Tests 06/04/18 06/05/18 06/05/18 11:35 06:00 06:00 WBC 5.6 RBC 4.55 Hgb 13.0 Hct 41.0 MCV 90.1 MCH 28.6 MCHC 31.8 L RDW 14.6 Plt Count 278 MPV 9.1 Sodium 140 Potassium 3.7 Chloride 104 Carbon Dioxide 28 Anion Gap 8 BUN 16 Creatinine 0.8 Creat Clearance w eGFR > 60 Random Glucose 90 Calcium 9.2 Total Bilirubin 0.3 AST 28 ALT 26 Alkaline Phosphatase 151 H Total Protein 7.3 Albumin 4.0 RPR Titer HIV 1&2 Antibody Screen Negative HIV P24 Antigen Negative 06/05/18 06:00 WBC RBC Hgb Hct MCV MCH MCHC RDW Plt Count MPV Sodium Potassium Chloride Carbon Dioxide Anion Gap BUN Creatinine Creat Clearance w eGFR Random Glucose Calcium Total Bilirubin AST ALT Alkaline Phosphatase Total Protein Albumin RPR Titer Nonreactive HIV 1&2 Antibody Screen HIV P24 Antigen LABS NOTED. Assessment: 06/06/18 18:51 WITHDRAWAL SYMPTOMS. Plan: CONTINUE DETOX.
[2018-06-06] MEDS: METHYL SALICYLATE/MENTHOL OINT 30 GM TUBE TP SCH ×2 (19:02→22:44)
[2018-06-06] MEDS: THIAMINE HCL 100 MG TABLET (FP) PO SCH (22:21)
[2018-06-06] MEDS: QUEtiapine FUMARATE 25 MG TABLET (FP) PO SCH (22:21)
[2018-06-07] MEDS: GABAPENTIN 100 MG CAPSULE (FP) PO SCH ×3 (06:07→22:09)
--- NOTE | 2018-06-07 09:33 | PN ---
S Progress Note Note: Pt states feeling fine- no complaints O: Vital Signs - 24 hr 06/06/18 06/06/18 06/07/18 09:55 15:56 00:05 Temperature 96.1 F L 98.2 F 98.2 F Pulse Rate 79 61 67 Respiratory 18 18 16 Rate Blood Pressure 125/69 118/76 141/78 06/07/18 06/07/18 06/07/18 00:30 03:30 07:09 Temperature 97.9 F Pulse Rate 66 Respiratory 18 18 18 Rate Blood Pressure 119/69 Laboratory Tests 06/04/18 06/05/18 06/05/18 11:35 06:00 06:00 WBC 5.6 RBC 4.55 Hgb 13.0 Hct 41.0 MCV 90.1 MCH 28.6 MCHC 31.8 L RDW 14.6 Plt Count 278 MPV 9.1 Sodium 140 Potassium 3.7 Chloride 104 Carbon Dioxide 28 Anion Gap 8 BUN 16 Creatinine 0.8 Creat Clearance w eGFR > 60 Random Glucose 90 Calcium 9.2 Total Bilirubin 0.3 AST 28 ALT 26 Alkaline Phosphatase 151 H Total Protein 7.3 Albumin 4.0 RPR Titer HIV 1&2 Antibody Screen Negative HIV P24 Antigen Negative 06/05/18 06:00 WBC RBC Hgb Hct MCV MCH MCHC RDW Plt Count MPV Sodium Potassium Chloride Carbon Dioxide Anion Gap BUN Creatinine Creat Clearance w eGFR Random Glucose Calcium Total Bilirubin AST ALT Alkaline Phosphatase Total Protein Albumin RPR Titer Nonreactive HIV 1&2 Antibody Screen HIV P24 Antigen a/p: continue heroin detox protocol: pt doing well
[2018-06-07] MEDS ORDERED: METHADONE HCL 5 MG TABLET (FOR DETOX USE ONLY) PO ONE (10:00)
[2018-06-07] MEDS: PRENATAL VITAMINS W/ FOLIC ACID TABLET (FP) PO SCH (10:42)
[2018-06-07] MEDS: METHYL SALICYLATE/MENTHOL OINT 30 GM TUBE TP SCH ×2 (10:42→22:08)
[2018-06-07] MEDS: diazePAM 5 MG TABLET PO PRN (10:43)
[2018-06-07] MEDS: IBUPROFEN 400 MG TABLET (FP) PO PRN ×2 (13:20→22:09)
[2018-06-07] MEDS: hydrOXYzine PAMOATE 25 MG CAPSULE (FP) PO PRN (22:09)
[2018-06-07] MEDS: QUEtiapine FUMARATE 25 MG TABLET (FP) PO SCH (22:09)
[2018-06-07] MEDS: THIAMINE HCL 100 MG TABLET (FP) PO SCH (22:32)
[2018-06-08] MEDS: GABAPENTIN 100 MG CAPSULE (FP) PO SCH ×3 (07:56→22:23)
--- NOTE | 2018-06-08 09:33 | PN ---
[facility] Progress Note (SOAP) Subjective: feeling better no body aches no gi distress less sweat sleep better at night amb[facility] on [address] social with peers Objective: 06/08/18 13:41 Vital Signs Temperature 97.9 F 06/08/18 10:12 Pulse Rate 65 06/08/18 10:12 Respiratory Rate 16 06/08/18 10:12 Blood Pressure 114/74 06/08/18 10:12 O2 Sat by Pulse Oximetry (%) Laboratory Last Values WBC 5.6 K/mm3 (4.0-10.0) 06/05/18 06:00 RBC 4.55 M/mm3 (3.60-5.2) 06/05/18 06:00 Hgb 13.0 GM/dL (10.7-15.3) 06/05/18 06:00 Hct 41.0 % (32.4-45.2) 06/05/18 06:00 MCV 90.1 fl (80-96) 06/05/18 06:00 MCH 28.6 pg (25.7-33.7) 06/05/18 06:00 MCHC 31.8 g/dl (32.0-36.0) L 06/05/18 06:00 RDW 14.6 % (11.6-15.6) 06/05/18 06:00 Plt Count 278 K/MM3 (134-434) 06/05/18 06:00 MPV 9.1 fl (7.5-11.1) 06/05/18 06:00 Sodium 140 mmol/L (136-145) 06/05/18 06:00 Potassium 3.7 mmol/L (3.5-5.1) 06/05/18 06:00 Chloride 104 mmol/L (98-107) 06/05/18 06:00 Carbon Dioxide 28 mmol/L (21-32) 06/05/18 06:00 Anion Gap 8 MMOL/L (8-16) 06/05/18 06:00 BUN 16 mg/dL (7-18) 06/05/18 06:00 Creatinine 0.8 mg/dL (0.55-1.3) 06/05/18 06:00 Creat Clearance w eGFR > 60 (>60) 06/05/18 06:00 Random Glucose 90 mg/dL (74-106) 06/05/18 06:00 Calcium 9.2 mg/dL (8.5-10.1) 06/05/18 06:00 Total Bilirubin 0.3 mg/dL (0.2-1) 06/05/18 06:00 AST 28 U/L (15-37) 06/05/18 06:00 ALT 26 U/L (13-61) 06/05/18 06:00 Alkaline Phosphatase 151 U/L (45-117) H 06/05/18 06:00 Total Protein 7.3 g/dl (6.4-8.2) 06/05/18 06:00 Albumin 4.0 g/dl (3.4-5.0) 06/05/18 06:00 RPR Titer Nonreactive (NONREACTIVE) 06/05/18 06:00 HIV 1&2 Antibody Screen Negative 06/04/18 11:35 HIV P24 Antigen Negative 06/04/18 11:35 lab noted Assessment: 06/08/18 13:44 withdrawal sx hypertension Plan: continue detox resueme HCTZ
[2018-06-08] MEDS ORDERED: METHADONE HCL 10 MG TABLET (FOR DETOX USE ONLY) PO ONE (10:00)
[2018-06-08] MEDS: IBUPROFEN 400 MG TABLET (FP) PO PRN ×2 (10:50→22:23)
[2018-06-08] MEDS: METHYL SALICYLATE/MENTHOL OINT 30 GM TUBE TP SCH ×2 (10:52→22:23)
[2018-06-08] MEDS: PRENATAL VITAMINS W/ FOLIC ACID TABLET (FP) PO SCH (10:52)
[2018-06-08] MEDS: HYDROCHLOROTHIAZIDE 12.5 MG CAPSULE (FP) PO SCH ×2 (14:29→22:23)
[2018-06-08] MEDS: QUEtiapine FUMARATE 25 MG TABLET (FP) PO SCH (22:24)
[2018-06-08] MEDS: THIAMINE HCL 100 MG TABLET (FP) PO SCH (22:24)
[2018-06-09] MEDS ORDERED: METHADONE HCL 5 MG TABLET (FOR DETOX USE ONLY) PO ONE (06:00)
[2018-06-09] MEDS: GABAPENTIN 100 MG CAPSULE (FP) PO SCH (07:22)
[2018-06-09] MEDS: HYDROCHLOROTHIAZIDE 12.5 MG CAPSULE (FP) PO SCH (09:36)
[2018-06-09] MEDS: PRENATAL VITAMINS W/ FOLIC ACID TABLET (FP) PO SCH (09:36)
[2018-06-09] MEDS: METHYL SALICYLATE/MENTHOL OINT 30 GM TUBE TP SCH (09:37)
[2018-06-09 10:32] VITALS: BP 136/84; PULSE 77; TEMP 97.9
--- NOTE | 2018-06-09 10:40 | DS ---
[facility] Detox Discharge Summary Admission Date: 06/04/18 Discharge Date: 06/09/18 - History Present History: Alcohol Dependence, Opioid Dependence Additional Comments: PATIENT COMPLETED DETOX WITHOUT ADVERSE EVENT. PATIENT IS ALERT AND ORIENTED X 3 , AMB AD JOHN, IN NAD. PATIENT IS MEDICALLY STABLE AND DENIES SI/HI. ACCEPTED REHAB REFERRAL TO [facility] HERE AT [facility]. PATIENT ENCOURAGE TO COMPLETE REHAB TO PREVENT RELAPSE. D/C INSTRUCTIONS PROVIDED TO PATIENT BY STAFF. - Physical Exam Results Vital Signs: Vital Signs Temperature 97.9 F 06/09/18 10:31 Pulse Rate 77 06/09/18 10:31 Respiratory Rate 18 06/09/18 10:31 Blood Pressure 136/84 06/09/18 10:31 O2 Sat by Pulse Oximetry (%) - Treatment Hospital Course: Detox Protocol Followed, Detoxed Safely, Responded well, Discharged Condition Good, Rehab Referral Accepted Patient has Accepted a Rehab Referral to: [facility] - Medication Discharge Medications: Ambulatory Orders Gabapentin [Neurontin -] 100 mg PO TID #90 capsule 01/17/18 Gabapentin [Neurontin -] 200 mg PO TID #30 capsule 02/11/18 Hydrochlorothiazide [Hctz -] 12.5 mg PO BID #30 cap 02/11/18 Quetiapine Fumarate [Seroquel -] 50 mg PO HS #30 tablet 02/12/18 hydrOXYzine PAMOATE [Vistaril -] 50 mg PO Q4H PRN #120 capsule 02/12/18 Hydrochlorothiazide [Hctz -] 12.5 mg PO BID #14 cap 06/08/18 - AMA Did Patient Leave Against Medical Advice: No
== END 2018-06-09 13:51 | disposition other institution (70) | DRG 773 ==
LOC: YASAS 09:37 → Y6N 11:04
PROC: HZ2ZZZZ Detoxification Services for Substance Abuse Treatment (ICD-10-PCS; principal; 2018-06-04)
DX: F11.23 Opioid dependence with withdrawal (principal); F10.29 Alcohol dependence with unspecified alcohol-induced disorder; F19.24 Other psychoactive substance dependence with psychoactive substance-induced mood disorder; F19.282 Other psychoactive substance dependence with psychoactive substance-induced sleep disorder; F31.9 Bipolar disorder, unspecified; R55 Syncope and collapse; J45.909 Unspecified asthma, uncomplicated; M12.9 Arthropathy, unspecified; M54.5 Low back pain; G89.29 Other chronic pain; R63.4 Abnormal weight loss; Z68.1 Body mass index [BMI] 19.9 or less, adult
CPT/HCPCS: 36415; 80053; 85027; 86593; 87389

== ENCOUNTER 2018-06-09 14:14 | Inpatient (IN) | payer OTHER ==
[2018-06-09 14:26] VITALS: BMI 21.1
--- NOTE | 2018-06-09 15:08 | PN ---
[facility] Progress Note Note: Called by nursing staff to order medication for newly admitted patient from detox. Medication reconciliation done. Seroquel 50 mg po HS ordered for patient
[2018-06-09] MEDS ORDERED: COLLOIDAL OATMEAL 1 BAR EACH TP PRN (15:11)
[2018-06-09] MEDS ORDERED: PT OWN MED DRAWER 7, Y5N ONE (15:37)
[2018-06-09] MEDS ORDERED: ACETAMINOPHEN 325 MG TABLET (FP) PO PRN (15:44)
[2018-06-09] MEDS ORDERED: MAGNESIUM CITRATE 300 ML BOTTLE PO PRN (15:44)
[2018-06-09] MEDS ORDERED: guaiFENesin/D-METHORPHAN HB 10 ML UNIT-DOSE CUPS PO PRN (15:44)
[2018-06-09] MEDS ORDERED: MENTHOL/PHENOL 1 EACH UD MM PRN (15:44)
[2018-06-09] MEDS ORDERED: P-EPHED 60MG/TRIPROLIDI 2.5MG TABLET PO PRN (15:44)
[2018-06-09] MEDS ORDERED: LOPERAMIDE HCL 2 MG CAPSULE PO PRN (15:44)
[2018-06-09] MEDS ORDERED: MAGNESIUM HYDROX 2400MG/30ML ORAL SUSPENSION 30 ML CUP PO PRN (15:44)
[2018-06-09] MEDS ORDERED: MAG HYDROX/AL HYDROX/SIMETH 30 ML UNIT-DOSE CUP PO PRN (15:44)
--- NOTE | 2018-06-09 15:44 | HP ---
[facility]A Rehab Assess/Revision - Admission History Admitted to Rehab from: [address] - Vital signs Vital Signs: Vital Signs Period Temp Pulse Resp BP Sys/Penaloza Pulse Ox Last 24 Hr 98 F 69 16 137/84 - Findings Detox History & Physical reviewed: Yes Concur with findings: Yes Inpatient Rehab Admission - Initial Determination Are CD services needed?: Yes Free of communicable disease: Yes Not in need of hospitalization: Yes - Rehab Admission Criteria Previous failed treatment: Yes Poor recovery environment: Yes Comorbidities: Yes Lacks judgement: No Patient is meeting Inpatient Rehab admission criteria:: Yes
[2018-06-09] MEDS ORDERED: LIDOCAINE 5% TOPICAL PATCH TP ONE (16:00)
[2018-06-09] MEDS ORDERED: LIDOCAINE PATCH REMOVAL MC SCH (22:00)
[2018-06-09] MEDS ORDERED: MELATONIN 5 MG TABLETS PO PRN (22:00)
[2018-06-09] MEDS: THIAMINE HCL 100 MG TABLET (FP) PO SCH (22:47)
[2018-06-09] MEDS: METHYL SALICYLATE/MENTHOL OINT 30 GM TUBE TP SCH (22:47)
[2018-06-09] MEDS: QUEtiapine FUMARATE 50 MG TABLET PO SCH (22:47)
[2018-06-09] MEDS: HYDROCHLOROTHIAZIDE 12.5 MG CAPSULE (FP) PO SCH (22:47)
[2018-06-10] MEDS: IBUPROFEN 400 MG TABLET (FP) PO PRN ×2 (06:42→14:31)
[2018-06-10] MEDS: GABAPENTIN 300 MG CAPSULE (FP) PO SCH ×3 (08:14→21:58)
[2018-06-10] MEDS: METHYL SALICYLATE/MENTHOL OINT 30 GM TUBE TP SCH ×2 (09:06→21:58)
[2018-06-10] MEDS: HYDROCHLOROTHIAZIDE 12.5 MG CAPSULE (FP) PO SCH ×2 (09:09→21:58)
[2018-06-10] MEDS: LIDOCAINE 5% TOPICAL PATCH TP SCH (09:09)
[2018-06-10] MEDS: PRENATAL VITAMINS W/ FOLIC ACID TABLET (FP) PO SCH (09:09)
[2018-06-10] MEDS ORDERED: PT OWN MED DRAWER 7, Y5N ONE (12:45)
--- NOTE | 2018-06-10 14:07 | HP ---
Psychiatrist Admission - Data Date of interview: 06/10/18 Admission source: Transfer from [address] [place] [address]. Identifying data: Transition to [facility] after completion of detoxification treatment on [address] [place] [address] for this 52 y/o AA female wishing to address , in rehabilitation, issues of alcohol + cocaine + heroin dependence co-morbid with bipolar disorder. Patient is single, a mother of four, domiciled, unemployed and supported by relatives. Medical History: Remarkable for anemia, bronchial asthma, hypertension, antecedent of tubal ligation and history of orthosurgery (fracture of left ankle in 06/2017). Psychiatric History: Patient reports a history of multiple psychiatric hospitalizations ([facility]) in the . Diagnosed with Anxiety Disorder + Bipolar Disorder. Ms Calvo indicates that she sees a psychiatrist at [facility] in [facility] for medication management. Regimen consists of seroquel 25 mg/hs + vistaril ( dose not recalled). Patient reports chronic non-adherence to medications + outpatient psychiatric care. Denies history of suicide attempts. Physical/Sexual Abuse/Trauma History: Not discussed. Patient declines. Additional Comment: Profile of substance abuse as reported on admission at [facility] : Smoking history: Current every day smoker. Have you smoked in the past 12 months: Yes. Aproximately how many cigarettes per day: 3. Cigars Per Day: 0. Hx Chewing Tobacco Use: No. Initiated information on smoking cessation: Yes. ' Breaking Loose' booklet given: 06/04/18. - Substance & Tx. History. Hx Alcohol Use: Yes. Hx Substance Use: Yes. Substance Use Type: Alcohol, Cocaine , Heroin. Hx Substance Use Treatment: Yes ([facility] 01/14/18 to 01/17/18 rehab to 02/12/18). - Substances Abused. Heroin. Route: Inhalation. Frequency: Daily. Amount used: 1 BUNDLE. Age of first use: 36. Date of Last Use: 06/03/18. Crack. Route: Smoking. Frequency: 3-6 times per week. Amount used: 3-4 BAGS. Age of first use: 23. Date of Last Use: 06/03/18. Alcohol. Route: Oral. Frequency: 1-2 times per week. Amount used: 3 12OZ BOTTLE OF WINE COOLERS. Age of first use: 18. Date of Last Use: 06/03/18 Vital Signs: Vital Signs - 24 hr 06/09/18 06/10/18 06/10/18 14:23 03:30 07:19 Temperature 98 F 98.0 F Pulse Rate 69 65 Respiratory 16 16 18 Rate Blood Pressure 137/84 127/88 06/10/18 09:00 Temperature Pulse Rate 60 Respiratory Rate Blood Pressure 142/91 Allergies/Adverse Reactions: Allergies Allergy/AdvReac Type Severity Reaction Status Date / Time No Known Allergies Allergy Verified 06/04/18 09:53 - Substance Abuse/Tx History Hx Alcohol Use: Yes (onset of alcohol abuse at age 18) Hx Substance Use: Yes (nicotine, alcohol,cocaine, cocaine) Substance Use Type: Alcohol, Cocaine, Heroin Hx Substance Use Treatment: Yes Mental Status Exam - Mental Status Exam Alert and Oriented to: Time, Place, Person Cognitive Function: Good Patient Appearance: Well Groomed (petite, thin frame, almost cachectic) Mood: Angry, Withdrawn, Irritable Affect: Mood Congruent, Constricted Patient Behavior: Cooperative (superficially cooperative) Speech Pattern: Clear Voice Loudness: Normal Thought Process: Intact, Goal Oriented Thought Disorder: Not Present Hallucinations: Denies Suicidal Ideation: Denies Homicidal Ideation: Denies Insight/Judgement: Fair Sleep: Well Appetite: Poor, Weight loss Muscle strength/Tone: Normal Gait/Station: Normal Psychiatric Findings - Problem List (Teague 1, 2,3) (1) Alcohol dependence Current Visit: Yes Status: Chronic Qualifiers: Substance use status: unspecified alcohol-induced disorder Qualified Code(s ): F10.29 - Alcohol dependence with unspecified alcohol-induced disorder (2) Opioid dependence Current Visit: Yes Status: Chronic (3) Cocaine dependence Current Visit: Yes Status: Chronic (4) Substance induced mood disorder Current Visit: Yes Status: Acute (5) Insomnia Current Visit: Yes Status: Acute - Initial Treatment Plan Initial Treatment Plan: Psychoeducation. Sleep hygiene. Support. NA/AA meetings. Group + supportive + cognitive therapy. Issues of spirituality, harm reduction and relapse prevention will be discussed in sessions throughout this hospital course. Medical issues will be addressed. Seroquel 50 mg po hs : ordered. Side effects/benefits discussed with the patient. Ms Calvo has verbalized her agrement with this plan of care. Observation.
[2018-06-10] MEDS: LIDOCAINE PATCH REMOVAL MC SCH (21:58)
[2018-06-10] MEDS: QUEtiapine FUMARATE 50 MG TABLET PO SCH (21:58)
[2018-06-10] MEDS: THIAMINE HCL 100 MG TABLET (FP) PO SCH (21:59)
[2018-06-11] MEDS: IBUPROFEN 400 MG TABLET (FP) PO PRN (03:54)
[2018-06-11] MEDS: GABAPENTIN 300 MG CAPSULE (FP) PO SCH ×3 (07:00→21:55)
[2018-06-11] MEDS ORDERED: PT OWN MED DRAWER 7, Y5N ONE ×2 (08:44→21:58)
[2018-06-11] MEDS: HYDROCHLOROTHIAZIDE 12.5 MG CAPSULE (FP) PO SCH ×2 (10:45→21:57)
[2018-06-11] MEDS: PRENATAL VITAMINS W/ FOLIC ACID TABLET (FP) PO SCH (10:45)
[2018-06-11] MEDS: LIDOCAINE 5% TOPICAL PATCH TP SCH (10:45)
[2018-06-11] MEDS: METHYL SALICYLATE/MENTHOL OINT 30 GM TUBE TP SCH ×2 (10:47→21:57)
[2018-06-11] MEDS: hydrOXYzine PAMOATE 50 MG CAPSULE (FP) PO PRN (13:46)
[2018-06-11] MEDS: QUEtiapine FUMARATE 50 MG TABLET PO SCH (21:55)
[2018-06-11] MEDS: LIDOCAINE PATCH REMOVAL MC SCH (21:55)
[2018-06-11] MEDS: THIAMINE HCL 100 MG TABLET (FP) PO SCH (21:58)
[2018-06-12] MEDS: GABAPENTIN 300 MG CAPSULE (FP) PO SCH ×3 (06:51→21:36)
[2018-06-12] MEDS: IBUPROFEN 400 MG TABLET (FP) PO PRN (06:51)
[2018-06-12] MEDS: PRENATAL VITAMINS W/ FOLIC ACID TABLET (FP) PO SCH (09:56)
[2018-06-12] MEDS: LIDOCAINE 5% TOPICAL PATCH TP SCH (09:56)
[2018-06-12] MEDS: HYDROCHLOROTHIAZIDE 12.5 MG CAPSULE (FP) PO SCH ×2 (09:56→21:37)
[2018-06-12] MEDS: METHYL SALICYLATE/MENTHOL OINT 30 GM TUBE TP SCH ×2 (09:57→21:54)
[2018-06-12] MEDS: QUEtiapine FUMARATE 50 MG TABLET PO SCH (21:36)
[2018-06-12] MEDS: THIAMINE HCL 100 MG TABLET (FP) PO SCH (21:36)
[2018-06-12] MEDS: TOLNAFTATE 1% CREAM 15 GM TUBE TP SCH (21:36)
[2018-06-12] MEDS: LIDOCAINE PATCH REMOVAL MC SCH (21:54)
[2018-06-13] MEDS: IBUPROFEN 400 MG TABLET (FP) PO PRN (06:50)
[2018-06-13] MEDS: GABAPENTIN 300 MG CAPSULE (FP) PO SCH ×3 (06:51→22:09)
[2018-06-13] MEDS: LIDOCAINE 5% TOPICAL PATCH TP SCH (09:52)
[2018-06-13] MEDS: PRENATAL VITAMINS W/ FOLIC ACID TABLET (FP) PO SCH (09:52)
[2018-06-13] MEDS: METHYL SALICYLATE/MENTHOL OINT 30 GM TUBE TP SCH ×2 (09:53→22:25)
[2018-06-13] MEDS: HYDROCHLOROTHIAZIDE 12.5 MG CAPSULE (FP) PO SCH ×2 (09:53→22:09)
[2018-06-13] MEDS: TOLNAFTATE 1% CREAM 15 GM TUBE TP SCH ×2 (09:53→22:25)
[2018-06-13] MEDS: hydrOXYzine PAMOATE 50 MG CAPSULE (FP) PO PRN (09:54)
--- NOTE | 2018-06-13 11:20 | PN ---
[facility] Progress Note Note: PT DETOXED ON [facility] FROM 06/04/18 TO 06/09/18 AND REFERRED TO REHAB. PT C/O WITHDRAWAL SX-BODY ACHES AND IRRITABILITY. ALERT O X 3. Vital Signs 06/13/18 06/13/18 06/13/18 03:30 07:15 09:09 Temperature 98.2 F 98.0 F Pulse Rate 67 71 Respiratory 18 18 18 Rate Blood Pressure 120/73 121/82 NAD PLAN:FLEXERIL 10 MG PO Q8H MOTRIN PRN INCREASE PO FLUIDS
[2018-06-13] MEDS: CYCLOBENZAPRINE HCL 10 MG TABLET (FP) PO PRN (13:09)
[2018-06-13] MEDS: THIAMINE HCL 100 MG TABLET (FP) PO SCH (22:09)
[2018-06-13] MEDS: QUEtiapine FUMARATE 50 MG TABLET PO SCH (22:09)
[2018-06-13] MEDS: LIDOCAINE PATCH REMOVAL MC SCH (22:25)
[2018-06-14] MEDS: CYCLOBENZAPRINE HCL 10 MG TABLET (FP) PO PRN ×2 (07:31→20:05)
[2018-06-14] MEDS: GABAPENTIN 300 MG CAPSULE (FP) PO SCH ×3 (07:31→21:18)
[2018-06-14] MEDS: LIDOCAINE 5% TOPICAL PATCH TP SCH (09:58)
[2018-06-14] MEDS: HYDROCHLOROTHIAZIDE 12.5 MG CAPSULE (FP) PO SCH ×2 (09:58→21:18)
[2018-06-14] MEDS: PRENATAL VITAMINS W/ FOLIC ACID TABLET (FP) PO SCH (09:58)
[2018-06-14] MEDS: METHYL SALICYLATE/MENTHOL OINT 30 GM TUBE TP SCH ×2 (09:58→21:18)
[2018-06-14] MEDS: TOLNAFTATE 1% CREAM 15 GM TUBE TP SCH ×2 (09:58→21:19)
[2018-06-14] MEDS: hydrOXYzine PAMOATE 50 MG CAPSULE (FP) PO PRN (11:23)
[2018-06-14] MEDS ORDERED: PT OWN MED DRAWER 7, Y5N ONE (19:42)
[2018-06-14] MEDS: LIDOCAINE PATCH REMOVAL MC SCH (21:18)
[2018-06-14] MEDS: THIAMINE HCL 100 MG TABLET (FP) PO SCH (21:18)
[2018-06-14] MEDS: QUEtiapine FUMARATE 50 MG TABLET PO SCH (21:18)
[2018-06-15] MEDS: GABAPENTIN 300 MG CAPSULE (FP) PO SCH ×3 (07:20→21:10)
[2018-06-15] MEDS: PRENATAL VITAMINS W/ FOLIC ACID TABLET (FP) PO SCH (09:17)
[2018-06-15] MEDS: CYCLOBENZAPRINE HCL 10 MG TABLET (FP) PO PRN ×2 (09:17→18:38)
[2018-06-15] MEDS: HYDROCHLOROTHIAZIDE 12.5 MG CAPSULE (FP) PO SCH ×2 (09:18→21:11)
[2018-06-15] MEDS: LIDOCAINE 5% TOPICAL PATCH TP SCH (09:18)
[2018-06-15] MEDS: METHYL SALICYLATE/MENTHOL OINT 30 GM TUBE TP SCH ×2 (09:19→21:11)
[2018-06-15] MEDS: TOLNAFTATE 1% CREAM 15 GM TUBE TP SCH ×2 (09:19→21:11)
[2018-06-15] MEDS: IBUPROFEN 400 MG TABLET (FP) PO PRN (19:06)
[2018-06-15] MEDS: THIAMINE HCL 100 MG TABLET (FP) PO SCH (21:10)
[2018-06-15] MEDS: QUEtiapine FUMARATE 50 MG TABLET PO SCH (21:10)
[2018-06-15] MEDS: LIDOCAINE PATCH REMOVAL MC SCH (21:11)
[2018-06-16] MEDS: GABAPENTIN 300 MG CAPSULE (FP) PO SCH ×3 (07:42→21:41)
[2018-06-16] MEDS ORDERED: PT OWN MED DRAWER 7, Y5N ONE (08:37)
[2018-06-16] MEDS: LIDOCAINE 5% TOPICAL PATCH TP SCH (09:53)
[2018-06-16] MEDS: HYDROCHLOROTHIAZIDE 12.5 MG CAPSULE (FP) PO SCH ×2 (09:54→21:42)
[2018-06-16] MEDS: PRENATAL VITAMINS W/ FOLIC ACID TABLET (FP) PO SCH (09:54)
[2018-06-16] MEDS: hydrOXYzine PAMOATE 50 MG CAPSULE (FP) PO PRN ×2 (09:55→21:42)
[2018-06-16] MEDS: METHYL SALICYLATE/MENTHOL OINT 30 GM TUBE TP SCH ×2 (10:07→21:41)
[2018-06-16] MEDS: TOLNAFTATE 1% CREAM 15 GM TUBE TP SCH ×2 (10:08→21:41)
[2018-06-16] MEDS: CYCLOBENZAPRINE HCL 10 MG TABLET (FP) PO PRN ×2 (14:51→21:42)
[2018-06-16] MEDS: LIDOCAINE PATCH REMOVAL MC SCH (21:41)
[2018-06-16] MEDS: THIAMINE HCL 100 MG TABLET (FP) PO SCH (21:41)
[2018-06-16] MEDS: QUEtiapine FUMARATE 50 MG TABLET PO SCH (21:42)
[2018-06-17] MEDS: GABAPENTIN 300 MG CAPSULE (FP) PO SCH ×3 (07:54→21:43)
[2018-06-17] MEDS: CYCLOBENZAPRINE HCL 10 MG TABLET (FP) PO PRN (07:55)
[2018-06-17] MEDS: LIDOCAINE 5% TOPICAL PATCH TP SCH (09:43)
[2018-06-17] MEDS: HYDROCHLOROTHIAZIDE 12.5 MG CAPSULE (FP) PO SCH ×2 (09:44→21:43)
[2018-06-17] MEDS: hydrOXYzine PAMOATE 50 MG CAPSULE (FP) PO PRN (09:44)
[2018-06-17] MEDS: PRENATAL VITAMINS W/ FOLIC ACID TABLET (FP) PO SCH (09:44)
[2018-06-17] MEDS: METHYL SALICYLATE/MENTHOL OINT 30 GM TUBE TP SCH ×2 (09:45→21:44)
[2018-06-17] MEDS: TOLNAFTATE 1% CREAM 15 GM TUBE TP SCH ×2 (09:45→21:44)
[2018-06-17] MEDS: IBUPROFEN 400 MG TABLET (FP) PO PRN (16:31)
[2018-06-17] MEDS ORDERED: TUBERCULIN PPD 5 TU/0.1ML VIAL ID ONE (17:43)
[2018-06-17] MEDS ORDERED: PT OWN MED DRAWER 7, Y5N ONE (21:08)
[2018-06-17] MEDS: QUEtiapine FUMARATE 50 MG TABLET PO SCH (21:43)
[2018-06-17] MEDS: THIAMINE HCL 100 MG TABLET (FP) PO SCH (21:43)
[2018-06-17] MEDS: LIDOCAINE PATCH REMOVAL MC SCH (21:44)
[2018-06-18] MEDS: IBUPROFEN 400 MG TABLET (FP) PO PRN ×2 (06:28→13:18)
[2018-06-18] MEDS: GABAPENTIN 300 MG CAPSULE (FP) PO SCH ×3 (06:28→21:14)
[2018-06-18] MEDS: PRENATAL VITAMINS W/ FOLIC ACID TABLET (FP) PO SCH (09:39)
[2018-06-18] MEDS: HYDROCHLOROTHIAZIDE 12.5 MG CAPSULE (FP) PO SCH ×2 (09:39→21:14)
[2018-06-18] MEDS: LIDOCAINE 5% TOPICAL PATCH TP SCH (09:39)
[2018-06-18] MEDS: TOLNAFTATE 1% CREAM 15 GM TUBE TP SCH ×2 (09:39→21:14)
[2018-06-18] MEDS: CYCLOBENZAPRINE HCL 10 MG TABLET (FP) PO PRN (09:41)
[2018-06-18] MEDS: hydrOXYzine PAMOATE 50 MG CAPSULE (FP) PO PRN (09:41)
[2018-06-18] MEDS: METHYL SALICYLATE/MENTHOL OINT 30 GM TUBE TP SCH ×2 (09:42→21:15)
--- NOTE | 2018-06-18 11:05 | PN ---
Psychiatric Progress Note Vital Signs: Vital Signs Period Temp Pulse Resp BP Sys/Penaloza Pulse Ox Last 24 Hr 97.9 F 84-95 16-18 109-115/71-76 Date of Session: 06/18/18 Chief Complaint:: Discharge visit HPI: Patient addressed Alcohol,Cocaine and Opioid dependence comorbid with Substance induced mood disorder. ROS: Arthritis,BA,Anemia. Current Medications: Active Medications Generic Name Dose Route Start Last Admin Trade Name Freq PRN Reason Stop Dose Admin Acetaminophen 650 mg 06/09/18 15:44 Tylenol - PO Q4H PRN FEVER Al Hydroxide/Mg Hydroxide 30 ml 06/09/18 15:44 Mylanta Oral Suspension - PO Q6H PRN DYSPEPSIA Colloidal Oatmeal 1 applic 06/09/18 15:11 06/10/18 06:42 Aveeno Soap - TP 1 applic DAILY PRN Administration HYGEINE Cyclobenzaprine HCl 10 mg 06/13/18 11:21 06/18/18 09:41 Flexeril - PO 10 mg TID PRN Administration MUSCLE SPASMS Eucalyptus/Menthol/Phenol/Sorbitol 1 each 06/09/18 15:44 Cepastat Lozenge - MM Q4H PRN SORE THROAT Gabapentin 300 mg 06/10/18 07:45 06/18/18 06:28 Neurontin - PO 300 mg TID OFELIA Administration Guaifenesin 10 ml 06/09/18 15:44 Robitussin Dm - PO Q6H PRN COUGH Hydrochlorothiazide 12.5 mg 06/09/18 22:00 06/18/18 09:39 Hctz - PO 12.5 mg BID OFELIA Administration Hydroxyzine Pamoate 50 mg 06/09/18 15:44 06/18/18 09:41 Vistaril - PO 50 mg Q4H PRN Administration AGITATION Ibuprofen 400 mg 06/09/18 15:44 06/18/18 06:28 Motrin - PO 400 mg Q6H PRN Administration Pain Level 4-6 Lidocaine 1 patch 06/10/18 10:00 06/18/18 09:39 Lidoderm Patch - TP 1 patch DAILY OFELIA Administration Loperamide HCl 4 mg 06/09/18 15:44 Imodium - PO Q6H PRN DIARRHEA Magnesium Citrate 300 ml 06/09/18 15:44 Citroma - PO Q48H PRN CONSTIPATION Magnesium Hydroxide 30 ml 06/09/18 15:44 Milk Of Magnesia - PO DAILY PRN CONSTIPATION Melatonin 5 mg 06/09/18 22:00 Melatonin PO HS PRN INSOMNIA Methyl Salicylate 1 applic 06/09/18 22:00 06/18/18 09:42 [place] - TP Not Given BID OFELIA Miscellaneous 1 each 06/10/18 22:00 06/17/18 21:44 Lidoderm Patch Removal MC 1 each DAILY@2200 OFELIA Administration Multivit/Folic Acid/Iron 1 tab 06/10/18 10:00 06/18/18 09:39 Vitamins (Sjr) - PO 1 tab DAILY OFELIA Administration Pseudoephedrine/Triprolidine 1 combo 06/09/18 15:44 Actifed - PO TID PRN NASAL CONGESTION Quetiapine Fumarate 50 mg 06/09/18 22:00 06/17/18 21:43 Seroquel - PO 50 mg HS OFELIA Administration Thiamine HCl 100 mg 06/09/18 22:00 06/17/18 21:43 Vitamin B1 - PO 100 mg HS OFELIA Administration Tolnaftate 1 applic 06/12/18 22:00 06/18/18 09:39 Tinactin 1% Cream - TP 1 applic BID OFELIA Administration Current Side Effect: No Lab tests ordered: No Lab tests reviewed: Yes Provider note:: Patient will complete this program tomorrow 06/19/18.She has met her treatment goals and will continue to address her issues on outpatient basis at [facility] outpatient rehabilitation [facility].Patient reports finding current medications Gabapentin 300 mg po tid help to cope with mood instability, anxiety,depression.Scripts for 30 days provided. Supportive therapy provided focusing on relapse prevention,coping skills,support system utiliation has been discussed as well as other resourses to maintain recovery. Patient is stable for discharge tomorrow. Mental Status Exam - Mental Status Exam Alert and Oriented to: Time, Place, Person Cognitive Function: Grossly Intact Patient Appearance: Well Groomed Mood: Euthymic Affect: Normal Range Patient Behavior: Cooperative Speech Pattern: Clear Voice Loudness: Normal Thought Process: Goal Oriented Thought Disorder: Not Present Hallucinations: Denies Suicidal Ideation: Denies Homicidal Ideation: Denies Insight/Judgement: Good Sleep: Fair Appetite: Fair Muscle strength/Tone: Normal Gait/Station: Normal Psychiatric Treatment Plan - Problem List (2) Alcohol dependence Qualifiers: Substance use status: unspecified alcohol-induced disorder Qualified Code(s ): F10.29 - Alcohol dependence with unspecified alcohol-induced disorder
--- NOTE | 2018-06-18 11:19 | PN ---
S Progress Note Note: PT REPORTS SHE IS DISCHARGING TOMORROW. PT REPORTS SHE IS IN PAIN MANAGEMENT AT [address] [place] [address] AND WILL FOLLOW UP WITH HER MEDICAL PROVIDER TOMORROW AFTER DISCHARGE. Vital Signs - 24 hr 06/17/18 06/18/18 06/18/18 21:30 00:30 07:01 Temperature 97.9 F Pulse Rate 84 86 Respiratory 16 18 Rate Blood Pressure 113/76 109/75 06/18/18 09:03 Temperature Pulse Rate 95 H Respiratory Rate Blood Pressure 115/71 NAD PLAN:FOLLOW UP WITH PAIN MANAGEMENT PROVIDER WITHIN 1 WEEK AFTER REHAB FOLLOW UP WITH AFTERCARE MANAGEMENT.
[2018-06-18] MEDS: QUEtiapine FUMARATE 50 MG TABLET PO SCH (21:14)
[2018-06-18] MEDS: LIDOCAINE PATCH REMOVAL MC SCH (21:14)
[2018-06-18] MEDS: THIAMINE HCL 100 MG TABLET (FP) PO SCH (21:14)
[2018-06-19] MEDS: GABAPENTIN 300 MG CAPSULE (FP) PO SCH (06:19)
[2018-06-19] MEDS: IBUPROFEN 400 MG TABLET (FP) PO PRN (06:21)
[2018-06-19] MEDS: CYCLOBENZAPRINE HCL 10 MG TABLET (FP) PO PRN (06:21)
[2018-06-19 06:35] VITALS: BP 124/83; PULSE 89; TEMP 98.2
== END 2018-06-19 07:51 | disposition home or self-care (01) | DRG 772 ==
LOC: YASAS 14:14 → Y3E 14:16
PROVIDERS: ADMIT Psychiatry & Neurology Psychiatry; ATTEND Psychiatry & Neurology Psychiatry
PROC: HZ42ZZZ Group Counseling for Substance Abuse Treatment, Cognitive-Behavioral (ICD-10-PCS; principal; 2018-06-09)
DX: F11.20 Opioid dependence, uncomplicated (principal); F10.20 Alcohol dependence, uncomplicated; F14.20 Cocaine dependence, uncomplicated; F19.24 Other psychoactive substance dependence with psychoactive substance-induced mood disorder; F31.9 Bipolar disorder, unspecified; I10 Essential (primary) hypertension; G47.00 Insomnia, unspecified; M79.10 Myalgia, unspecified site; J45.909 Unspecified asthma, uncomplicated

== ENCOUNTER 2018-12-09 13:28 | Inpatient (IN) | payer OTHER ==
[2018-12-09 16:27] VITALS: BMI 18.9
--- NOTE | 2018-12-09 17:40 | HP ---
CIWA Score - Admission Criteria [facility] Guidelines: Admission for Medically Managed Detox: Requires at least one of the followin. CIWA greater than 12 2. Seizures within the past 24 hours 3. Delirium tremens within the past 24 hours 4. Hallucinations within the past 24 hours 5. Acute intervention needed for co occurring medical disorder 6. Acute intervention needed for co occurring psychiatric disorder 7. Severe withdrawal that cannot be handled at a lower level of care (continued vomiting, continued diarrhea, abnormal vital signs) requiring intravenous medication and/or fluids 8. Admission ROS [facility] Allergies/Adverse Reactions: Allergies Allergy/AdvReac Type Severity Reaction Status Date / Time No Known Allergies Allergy Verified 12/09/18 16:16 History of Present Illness: pt here requesting rehab from cocaine and etoh use , cocaine reports 2-3 bags x 2-3 x/week denies IVDU , etoh 12 - oz can x 1-2 x/week. In MMTP x 2 months , current dose 50 mg , self -referred to tx tobacco : 2-3 cigs/day . PMHX : OA previously on Gabapentin PSHX : left ankle ORIF 07/05 frx " i don't want to explain all of that " , btl psych : depression , denies current SI / HI . This report was requested by: Ligia Lucero | Reference #: [id number] Others' Prescriptions Patient Name: Tata Calvo Date: 1965 Address: [address] [place] [address] Sex: Female Rx Written Rx Dispensed Drug Quantity Days Supply Prescriber Name 09/15/2018 09/15/2018 oxycodone-acetaminophen 5-325 mg tablet 10 5 [facility] 08/05/2018 08/06/2018 oxycodone-acetaminophen 5-325 mg tablet 20 10 [facility] 06/27/2018 06/28/2018 oxycodone-acetaminophen 5-325 mg tablet 30 15 Clint Kent MD 05/02/2018 05/09/2018 oxycodone-acetaminophen 5-325 mg tablet 14 7 Clint Kent MD 02/18/2018 02/20/2018 oxycodone-acetaminophen 5-325 mg tablet 14 7 Clint Kent MD 12/20/2017 12/20/2017 oxycodone-acetaminophen 5-325 mg tablet 45 22 Clint Kent MD Exam Limitations: No Limitations - Ebola screening Have you traveled outside of the country in the last 21 days: No Have you had contact with anyone from an Ebola affected area: No Do you have a fever: No - Review of Systems Constitutional: Loss of Appetite, Unintentional Wgt. Loss (w/ cocaine use) EENT: reports: Other (glasses , denies dysphagia) Respiratory: reports: SOB with Exertion Cardiac: reports: No Symptoms Reported GI: reports: No Symptoms Reported : reports: No Symptoms Reported Musculoskeletal: reports: See HPI, Joint Pain (shoulders, left ankle) Integumentary: reports: Dryness Neuro: reports: No Symptoms reported Endocrine: reports: No Symptoms Reported Psychiatric: reports: Orientated x3, Agitated, Anxious Patient History - Patient Medical History Hx Anemia: Yes (on iron pill) Hx Asthma: Yes Hx Chronic Obstructive Pulmonary Disease (COPD): No Hx Cancer: No Hx Cardiac Disorders: No Hx Congestive Heart Failure: No Hx Hypertension: Yes Hx Hypercholesterolemia: No Hx Pacemaker: No HX Cerebrovascular Accident: No Hx Seizures: No Hx Dementia: No Hx Diabetes: No Hx Gastrointestinal Disorders: No Hx Liver Disease: No Hx Genitourinary Disorders: No Hx Sexually Transmitted Disorders: No Hx Renal Disease (ESRD): No Hx Thyroid Disease: No Hx Human Immunodeficiency Virus (HIV): No (last 01/2017 negative) Hx Hepatitis C: No Hx Depression: No Hx Suicide Attempt: No Hx Bipolar Disorder: Yes (SEROQUEL/CLONIDINE) Hx Schizophrenia: No - Patient Surgical History Past Surgical History: Yes Hx Neurologic Surgery: No Hx Cataract Extraction: No Hx Cardiac Surgery: No Hx Lung Surgery: No Hx Breast Surgery: No Hx Breast Biopsy: No Hx Abdominal Surgery: Yes (TUBAL LIGATION) Hx Appendectomy: No Hx Cholecystectomy: No Hx Genitourinary Surgery: No Hx Section: No Hx Orthopedic Surgery: Yes (left ankle fx) Other Surgical History: tubal ligation in 2000 Anesthesia Reaction: No - PPD History Date: 06/07/17 Results: 0mm - Reproductive History Last Menstrual Period: 05/17/17 - Smoking Cessation Smoking history: Current every day smoker Have you smoked in the past 12 months: Yes Aproximately how many cigarettes per day: 3 Cigars Per Day: 0 Hx Chewing Tobacco Use: No Initiated information on smoking cessation: No - Substances abused Crack Substance route: Smoking Frequency: 3-6 times per week Amount used: 30 to 40 dollars Age of first use: 23 Date of last use: 12/09/18 Alcohol Substance route: Oral Frequency: Daily Amount used: 12 ounces of Lizzy Age of first use: 18 Date of last use: 12/09/18 Family Disease History - Family Disease History Family Disease History: Heart Disease: Father (ALCOHOLIC,HTN,), Mother ( HTN), Other: Father Admission Physical Exam S - Vital Signs Vital Signs: Vital Signs - 24 hr 12/09/18 16:19 Temperature 97.5 F L Pulse Rate 62 Respiratory 16 Rate Blood Pressure 165/93 - Physical General Appearance: Yes: Irritable, Anxious HEENTM: Yes: Normocephalic, Normal Voice Respiratory: Yes: Chest Non-Tender, Lungs Clear, Normal Breath Sounds, No Respiratory Distress, No Accessory Muscle Use Neck: Yes: No masses,lesions,Nodules, Trachea in good position Cardiology: Yes: Regular Rhythm, Regular Rate, S1, S2 Abdominal: Yes: Non Tender, Soft Back: Yes: Normal Inspection Extremities: Yes: Other (decreased ROM left ankle) Neurological: Yes: Fully Oriented, Alert, Motor Strength 5/5 Integumentary: Yes: Dry - Diagnostic (1) Cocaine dependence Current Visit: Yes Status: Chronic Qualifiers: Substance use status: uncomplicated Qualified Code(s): F14.20 - Cocaine dependence, uncomplicated (2) Opioid dependence on agonist therapy Current Visit: Yes Status: Chronic Comment: on [facility] at [facility] (3) Nicotine dependence Current Visit: Yes Status: Chronic Qualifiers: Nicotine product type: cigarettes Breathalyzer - Breathalyzer Breathalyzer: 0 Urine Drug Screen - Test Device Lot number: [id number] Expiration date: 09/30/20 - Results Drug screen NEGATIVE: No Urine drug screen results: CHRIS-Cocaine, MTD-Methadone Inpatient Rehab Admission - Rehab Decision to Admit Inpatient rehab admission?: Yes - Initial Determination Are CD services needed?: Yes Free of communicable disease: Yes Not in need of hospitalization: Yes - Rehab Admission Criteria Previous failed treatment: Yes Poor recovery environment: No Comorbidities: No Lacks judgement: Yes Patient is meeting Inpatient Rehab admission criteria:: Yes
[2018-12-09] MEDS ORDERED: P-EPHED 60MG/TRIPROLIDI 2.5MG TABLET PO PRN (17:49)
[2018-12-09] MEDS ORDERED: MAG HYDROX/AL HYDROX/SIMETH 30 ML UNIT-DOSE CUP PO PRN (17:49)
[2018-12-09] MEDS ORDERED: MAGNESIUM HYDROX 2400MG/30ML ORAL SUSPENSION 30 ML CUP PO PRN (17:49)
[2018-12-09] MEDS ORDERED: ACETAMINOPHEN 325 MG TABLET (FP) PO PRN (17:49)
[2018-12-09] MEDS ORDERED: guaiFENesin 200 MG/10 ML 10 ML UNIT-DOSE CUPS PO PRN (17:49)
[2018-12-09] MEDS ORDERED: MAGNESIUM CITRATE 300 ML BOTTLE PO PRN (17:49)
[2018-12-09] MEDS ORDERED: MENTHOL/PHENOL 1 EACH UD MM PRN (17:49)
[2018-12-09] MEDS ORDERED: cloNIDine HCL 0.1 MG TABLET PO ONE (18:45)
[2018-12-09] MEDS: GABAPENTIN 300 MG CAPSULE (FP) PO SCH (21:14)
[2018-12-09] MEDS: THIAMINE HCL 100 MG TABLET (FP) PO SCH (21:14)
[2018-12-09] MEDS: IBUPROFEN 400 MG TABLET (FP) PO PRN (21:15)
[2018-12-10 00:06] LABS: URINE APPEARANCE CLOUDY; URINE BILIRUBIN NEGATIVE (NEGATIVE); URINE COLOR YELLOW; URINE GLUCOSE (UA) NEGATIVE (NEGATIVE); URINE KETONE NEGATIVE (NEGATIVE); URINE LEUK ESTERASE NEGATIVE (NEGATIVE); URINE NITRITE NEGATIVE (NEGATIVE); URINE PROTEIN NEGATIVE (NEGATIVE)
[2018-12-10] MEDS: GABAPENTIN 300 MG CAPSULE (FP) PO SCH ×3 (06:45→21:18)
[2018-12-10] MEDS ORDERED: METHADONE HCL 10 MG TABLET PO SCH (07:00)
[2018-12-10] MEDS ORDERED: METHADONE HCL 10 MG TABLET ONE (07:14)
[2018-12-10] MEDS ORDERED: METHADONE HCL 40 MG DISPERSABLE TABLET ONE (07:14)
[2018-12-10] MEDS: METHADONE 40 MG, METHADONE 10 MG PO SCH (07:19)
[2018-12-10] MEDS: COLLOIDAL OATMEAL 1 BAR EACH TP PRN (09:14)
[2018-12-10] MEDS: AMMONIUM LACTATE 12% LOTION 225 GM BOTTLE TP PRN (09:14)
[2018-12-10] MEDS: PRENATAL VITAMINS W/ FOLIC ACID TABLET (FP) PO SCH (09:14)
[2018-12-10] MEDS: HYDROCHLOROTHIAZIDE 12.5 MG CAPSULE (FP) PO SCH (09:14)
[2018-12-10] MEDS ORDERED: PT OWN MED DRAWER 7, Y5N ONE (10:13)
[2018-12-10 12:08] LABS: HEMATOCRIT 35.8 % (32.4-45.2); HEMOGLOBIN 11.9 GM/dL (10.7-15.3); MCH 30.5 pg (25.7-33.7); MCHC 33.2 g/dl (32.0-36.0); MEAN PLT VOLUME 9.4 fl (7.5-11.1); RBC 3.89 M/mm3 (3.60-5.2); RDW 13.2 % (11.6-15.6); WHITE BLOOD COUNT 3.3 K/mm3 (4.0-10.0)
[2018-12-10 12:15] LABS: ALBUMIN 3.4 g/dl (3.4-5.0); BILIRUBIN,TOTAL 0.2 mg/dL (0.2-1); CALCIUM 8.7 mg/dL (8.5-10.1); CREATININE 0.7 mg/dL (0.55-1.3); POTASSIUM 3.6 mmol/L (3.5-5.1); TOT PROT 6.3 g/dl (6.4-8.2)
[2018-12-10 12:48] LABS: PLATELET COUNT 152 K/MM3 (134-434)
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
[2018-12-10] MEDS: hydrOXYzine HCL 25 MG TABLET (FP) PO PRN (21:18)
[2018-12-10] MEDS: THIAMINE HCL 100 MG TABLET (FP) PO SCH (21:18)
[2018-12-10] MEDS: MELATONIN 5 MG TABLETS PO PRN (21:18)
[2018-12-10] MEDS: QUEtiapine FUMARATE 25 MG TABLET (FP) PO SCH (21:19)
[2018-12-10] MEDS: IBUPROFEN 400 MG TABLET (FP) PO PRN (22:23)
[2018-12-11] MEDS: hydrOXYzine HCL 25 MG TABLET (FP) PO PRN (02:08)
[2018-12-11] MEDS ORDERED: METHADONE HCL 10 MG TABLET ONE (05:47)
[2018-12-11] MEDS ORDERED: METHADONE HCL 40 MG DISPERSABLE TABLET ONE (05:48)
[2018-12-11] MEDS: GABAPENTIN 300 MG CAPSULE (FP) PO SCH ×3 (06:08→21:56)
[2018-12-11] MEDS: METHADONE 40 MG, METHADONE 10 MG PO SCH (06:08)
[2018-12-11] MEDS: HYDROCHLOROTHIAZIDE 12.5 MG CAPSULE (FP) PO SCH (09:08)
[2018-12-11] MEDS: PRENATAL VITAMINS W/ FOLIC ACID TABLET (FP) PO SCH (09:08)
[2018-12-11] MEDS: IBUPROFEN 400 MG TABLET (FP) PO PRN (19:45)
[2018-12-11] MEDS: QUEtiapine FUMARATE 25 MG TABLET (FP) PO SCH (21:54)
[2018-12-11] MEDS: THIAMINE HCL 100 MG TABLET (FP) PO SCH (21:55)
[2018-12-12] MEDS: IBUPROFEN 400 MG TABLET (FP) PO PRN ×2 (04:20→13:13)
[2018-12-12] MEDS ORDERED: METHADONE HCL 40 MG DISPERSABLE TABLET ONE (05:57)
[2018-12-12] MEDS ORDERED: METHADONE HCL 10 MG TABLET ONE (05:57)
[2018-12-12] MEDS: GABAPENTIN 300 MG CAPSULE (FP) PO SCH ×3 (07:49→21:21)
[2018-12-12] MEDS: METHADONE 40 MG, METHADONE 10 MG PO SCH (07:49)
[2018-12-12] MEDS: LIDOCAINE 5% TOPICAL PATCH TP SCH (09:37)
[2018-12-12] MEDS: HYDROCHLOROTHIAZIDE 12.5 MG CAPSULE (FP) PO SCH (09:37)
[2018-12-12] MEDS: PRENATAL VITAMINS W/ FOLIC ACID TABLET (FP) PO SCH (09:37)
[2018-12-12] MEDS ORDERED: PT OWN MED DRAWER 7, Y5N ONE ×3 (10:47→21:39)
[2018-12-12] MEDS: LIDOCAINE PATCH REMOVAL MC SCH (21:21)
[2018-12-12] MEDS: QUEtiapine FUMARATE 25 MG TABLET (FP) PO SCH (21:21)
[2018-12-12] MEDS: THIAMINE HCL 100 MG TABLET (FP) PO SCH (21:21)
[2018-12-13] MEDS: IBUPROFEN 400 MG TABLET (FP) PO PRN (05:09)
[2018-12-13] MEDS ORDERED: METHADONE HCL 40 MG DISPERSABLE TABLET ONE (06:03)
[2018-12-13] MEDS ORDERED: METHADONE HCL 10 MG TABLET ONE (06:03)
[2018-12-13] MEDS: GABAPENTIN 300 MG CAPSULE (FP) PO SCH ×3 (06:05→23:00)
[2018-12-13] MEDS: METHADONE 40 MG, METHADONE 10 MG PO SCH (06:05)
[2018-12-13] MEDS: hydrOXYzine HCL 25 MG TABLET (FP) PO PRN (08:49)
[2018-12-13] MEDS: LIDOCAINE 5% TOPICAL PATCH TP SCH (09:04)
[2018-12-13] MEDS: HYDROCHLOROTHIAZIDE 12.5 MG CAPSULE (FP) PO SCH (09:04)
[2018-12-13] MEDS: PRENATAL VITAMINS W/ FOLIC ACID TABLET (FP) PO SCH (09:04)
[2018-12-13] MEDS: VITAMINS A AND D TOPICAL OINTMENT 60 GM TUBE TP PRN (13:04)
[2018-12-13] MEDS ORDERED: PT OWN MED DRAWER 7, Y5N ONE (13:05)
[2018-12-13] MEDS: QUEtiapine FUMARATE 25 MG TABLET (FP) PO SCH (23:00)
[2018-12-13] MEDS: LIDOCAINE PATCH REMOVAL MC SCH (23:00)
[2018-12-13] MEDS: THIAMINE HCL 100 MG TABLET (FP) PO SCH (23:00)
[2018-12-14] MEDS: IBUPROFEN 400 MG TABLET (FP) PO PRN (00:30)
[2018-12-14] MEDS ORDERED: METHADONE HCL 10 MG TABLET ONE (06:29)
[2018-12-14] MEDS ORDERED: METHADONE HCL 40 MG DISPERSABLE TABLET ONE (06:30)
[2018-12-14] MEDS: GABAPENTIN 300 MG CAPSULE (FP) PO SCH ×3 (06:32→21:49)
[2018-12-14] MEDS: METHADONE 40 MG, METHADONE 10 MG PO SCH (06:32)
[2018-12-14] MEDS: PRENATAL VITAMINS W/ FOLIC ACID TABLET (FP) PO SCH (10:13)
[2018-12-14] MEDS: HYDROCHLOROTHIAZIDE 12.5 MG CAPSULE (FP) PO SCH (10:13)
[2018-12-14] MEDS: LIDOCAINE 5% TOPICAL PATCH TP SCH (10:13)
[2018-12-14] MEDS: hydrOXYzine HCL 25 MG TABLET (FP) PO PRN (16:49)
[2018-12-14] MEDS: THIAMINE HCL 100 MG TABLET (FP) PO SCH (21:49)
[2018-12-14] MEDS: LIDOCAINE PATCH REMOVAL MC SCH (21:49)
[2018-12-14] MEDS: QUEtiapine FUMARATE 25 MG TABLET (FP) PO SCH (21:49)
[2018-12-14] MEDS ORDERED: PT OWN MED DRAWER 7, Y5N ONE (22:39)
[2018-12-15] MEDS ORDERED: METHADONE HCL 10 MG TABLET ONE (06:28)
[2018-12-15] MEDS ORDERED: METHADONE HCL 40 MG DISPERSABLE TABLET ONE (06:29)
[2018-12-15] MEDS: METHADONE 40 MG, METHADONE 10 MG PO SCH (06:29)
[2018-12-15] MEDS: GABAPENTIN 300 MG CAPSULE (FP) PO SCH ×3 (06:30→21:06)
[2018-12-15] MEDS: IBUPROFEN 400 MG TABLET (FP) PO PRN (06:31)
[2018-12-15] MEDS: PRENATAL VITAMINS W/ FOLIC ACID TABLET (FP) PO SCH (09:44)
[2018-12-15] MEDS: HYDROCHLOROTHIAZIDE 12.5 MG CAPSULE (FP) PO SCH (09:44)
[2018-12-15] MEDS: AMMONIUM LACTATE 12% LOTION 225 GM BOTTLE TP PRN (09:44)
[2018-12-15] MEDS: LIDOCAINE 5% TOPICAL PATCH TP SCH (09:45)
[2018-12-15] MEDS ORDERED: RANITIDINE HCL 150 MG TABLET (FP) PO ONE (11:15)
[2018-12-15] MEDS: NICOTINE POLACRILEX 2 MG GUM BUC PRN (11:55)
[2018-12-15] MEDS: VITAMINS A AND D TOPICAL OINTMENT 60 GM TUBE TP PRN (12:19)
[2018-12-15] MEDS ORDERED: PT OWN MED DRAWER 7, Y5N ONE ×2 (12:19→19:17)
[2018-12-15] MEDS: hydrOXYzine HCL 25 MG TABLET (FP) PO PRN ×2 (19:21→23:43)
[2018-12-15] MEDS: RANITIDINE HCL 150 MG TABLET (FP) PO SCH (21:06)
[2018-12-15] MEDS: QUEtiapine FUMARATE 25 MG TABLET (FP) PO SCH (21:06)
[2018-12-15] MEDS: LIDOCAINE PATCH REMOVAL MC SCH (21:06)
[2018-12-15] MEDS: THIAMINE HCL 100 MG TABLET (FP) PO SCH (21:06)
[2018-12-16] MEDS ORDERED: METHADONE HCL 10 MG TABLET ONE (06:19)
[2018-12-16] MEDS ORDERED: METHADONE HCL 40 MG DISPERSABLE TABLET ONE (06:19)
[2018-12-16] MEDS: METHADONE 40 MG, METHADONE 10 MG PO SCH (06:20)
[2018-12-16] MEDS: GABAPENTIN 300 MG CAPSULE (FP) PO SCH (06:20)
[2018-12-16] MEDS: IBUPROFEN 400 MG TABLET (FP) PO PRN ×2 (06:23→12:55)
[2018-12-16] MEDS: HYDROCHLOROTHIAZIDE 12.5 MG CAPSULE (FP) PO SCH (10:03)
[2018-12-16] MEDS: PRENATAL VITAMINS W/ FOLIC ACID TABLET (FP) PO SCH (10:04)
[2018-12-16] MEDS: LIDOCAINE 5% TOPICAL PATCH TP SCH (10:04)
[2018-12-16] MEDS: RANITIDINE HCL 150 MG TABLET (FP) PO SCH ×2 (10:05→21:12)
[2018-12-16] MEDS: GABAPENTIN 400 MG CAPSULE (FP) PO SCH ×2 (13:04→21:12)
--- NOTE | 2018-12-16 15:01 | PN ---
[facility] Progress Note (SOAP) Subjective: c/o burning on urination, urinating small amounts. Malodorous. States it started today. Objective: PE: deferred, based on symptoms. 12/16/18 15:00 12/16/18 15:01 Urine Test Results Urine Color Yellow 12/09/18 21:25 Urine Appearance Cloudy 12/09/18 21:25 Urine pH 6.0 (5.0-8.0) D 12/09/18 21:25 Ur Specific [place] 1.022 (1.010-1.035) 12/09/18 21:25 Urine Protein Negative (NEGATIVE) 12/09/18 21:25 Urine Glucose (UA) Negative (NEGATIVE) 12/09/18 21:25 Urine Ketones Negative (NEGATIVE) 12/09/18 21:25 Urine Blood Negative (NEGATIVE) 12/09/18 21:25 Urine Nitrite Negative (NEGATIVE) 12/09/18 21:25 Urine Bilirubin Negative (NEGATIVE) 12/09/18 21:25 Ur Leukocyte Esterase Negative (NEGATIVE) 12/09/18 21:25 Assessment: UTI 12/16/18 15:00 Plan: Urine culture ordered, bactrim started empirically
[2018-12-16] MEDS: QUEtiapine FUMARATE 25 MG TABLET (FP) PO SCH (21:12)
[2018-12-16] MEDS: THIAMINE HCL 100 MG TABLET (FP) PO SCH (21:12)
[2018-12-16] MEDS: LIDOCAINE PATCH REMOVAL MC SCH (21:14)
[2018-12-16] MEDS: SULFAMETHOXAZOLE/TRIMETHOPRIM 800MG/160MG D.S. TABLET PO SCH (21:15)
[2018-12-16] MEDS ORDERED: PT OWN MED DRAWER 7, Y5N ONE (22:41)
[2018-12-17] MEDS ORDERED: METHADONE HCL 10 MG TABLET ONE (06:10)
[2018-12-17] MEDS ORDERED: METHADONE HCL 40 MG DISPERSABLE TABLET ONE (06:10)
[2018-12-17] MEDS: METHADONE 40 MG, METHADONE 10 MG PO SCH (06:11)
[2018-12-17] MEDS: IBUPROFEN 400 MG TABLET (FP) PO PRN (06:11)
[2018-12-17] MEDS: GABAPENTIN 400 MG CAPSULE (FP) PO SCH ×3 (06:11→22:57)
[2018-12-17] MEDS: SULFAMETHOXAZOLE/TRIMETHOPRIM 800MG/160MG D.S. TABLET PO SCH ×2 (09:51→22:57)
[2018-12-17] MEDS: HYDROCHLOROTHIAZIDE 12.5 MG CAPSULE (FP) PO SCH (09:51)
[2018-12-17] MEDS: PRENATAL VITAMINS W/ FOLIC ACID TABLET (FP) PO SCH (09:51)
[2018-12-17] MEDS: RANITIDINE HCL 150 MG TABLET (FP) PO SCH ×2 (09:51→22:57)
[2018-12-17] MEDS: LIDOCAINE 5% TOPICAL PATCH TP SCH (09:51)
[2018-12-17] MEDS: COLLOIDAL OATMEAL 1 BAR EACH TP PRN (10:53)
[2018-12-17] MEDS: NICOTINE POLACRILEX 2 MG GUM BUC PRN (13:18)
[2018-12-17] MEDS ORDERED: PT OWN MED DRAWER 7, Y5N ONE ×3 (22:34→23:00)
[2018-12-17] MEDS: QUEtiapine FUMARATE 25 MG TABLET (FP) PO SCH (22:57)
[2018-12-17] MEDS: LIDOCAINE PATCH REMOVAL MC SCH (22:57)
[2018-12-17] MEDS: THIAMINE HCL 100 MG TABLET (FP) PO SCH (22:57)
[2018-12-17] MEDS: AMMONIUM LACTATE 12% LOTION 225 GM BOTTLE TP PRN (22:59)
[2018-12-18] MEDS ORDERED: METHADONE HCL 10 MG TABLET ONE (06:22)
[2018-12-18] MEDS ORDERED: METHADONE HCL 40 MG DISPERSABLE TABLET ONE (06:23)
[2018-12-18] MEDS: METHADONE 40 MG, METHADONE 10 MG PO SCH (06:23)
[2018-12-18] MEDS: GABAPENTIN 400 MG CAPSULE (FP) PO SCH ×3 (06:24→22:08)
[2018-12-18] MEDS: SULFAMETHOXAZOLE/TRIMETHOPRIM 800MG/160MG D.S. TABLET PO SCH ×2 (09:58→22:07)
[2018-12-18] MEDS: HYDROCHLOROTHIAZIDE 12.5 MG CAPSULE (FP) PO SCH (09:59)
[2018-12-18] MEDS: PRENATAL VITAMINS W/ FOLIC ACID TABLET (FP) PO SCH (09:59)
[2018-12-18] MEDS: RANITIDINE HCL 150 MG TABLET (FP) PO SCH ×2 (09:59→22:09)
[2018-12-18] MEDS: LIDOCAINE 5% TOPICAL PATCH TP SCH (09:59)
[2018-12-18] MEDS: NICOTINE POLACRILEX 2 MG GUM BUC PRN ×2 (10:25→14:19)
--- NOTE | 2018-12-18 11:28 | PN ---
Psychiatric Progress Note Vital Signs: Vital Signs Period Temp Pulse Resp BP Sys/Penaloza Pulse Ox Last 24 Hr 97.8 F 61-65 18 128-130/83-83 Date of Session: 12/18/18 Chief Complaint:: "i need help with my medical medications." HPI: Patient admitted to for alcohol and cocaine dependence. ROS: Patient is coherent, alert and oriented X3. Current Medications: Active Medications Generic Name Dose Route Start Last Admin Trade Name Freq PRN Reason Stop Dose Admin Acetaminophen 650 mg 12/09/18 17:49 12/14/18 16:49 Tylenol - PO 650 mg Q4H PRN Administration FEVER Al Hydroxide/Mg Hydroxide 30 ml 12/09/18 17:49 12/13/18 19:34 Mylanta Oral Suspension - PO 30 ml Q6H PRN Administration DYSPEPSIA Colloidal Oatmeal 1 applic 12/09/18 17:51 12/17/18 10:53 Aveeno Soap - TP 1 applic DAILY PRN Administration HYGEINE Eucalyptus/Menthol/Phenol/Sorbitol 1 each 12/09/18 17:49 Cepastat Lozenge - MM Q4H PRN SORE THROAT Gabapentin 400 mg 12/16/18 14:00 12/18/18 06:24 Neurontin - PO 400 mg TID OFELIA Administration Guaifenesin 10 ml 12/09/18 17:49 Robitussin - PO Q6H PRN COUGH Hydrochlorothiazide 12.5 mg 12/10/18 10:00 12/18/18 09:59 Hctz - PO 12.5 mg DAILY OFELIA Administration Hydroxyzine HCl 25 mg 12/09/18 17:49 12/15/18 23:43 Atarax - PO 25 mg Q4H PRN Administration AGITATION Ibuprofen 400 mg 12/09/18 17:49 12/17/18 06:11 Motrin - PO 400 mg Q6H PRN Administration Pain level 4-6 Lactic Acid 1 applic 12/09/18 17:50 12/17/18 22:59 Lac-Hydrin 12 TP 1 applic BID PRN Administration DRY SKIN Lidocaine 1 patch 12/12/18 10:00 12/18/18 09:59 Lidoderm Patch - TP 1 patch DAILY OFELIA Administration Magnesium Citrate 300 ml 12/09/18 17:49 Citroma - PO Q48H PRN CONSTIPATION Magnesium Hydroxide 30 ml 12/09/18 17:49 Milk Of Magnesia - PO DAILY PRN CONSTIPATION Melatonin 5 mg 12/09/18 22:00 12/10/18 21:18 Melatonin PO 5 mg HS PRN Administration INSOMNIA Methadone HCl 40 mg/ Methadone 50 mg 12/18/18 06:00 12/18/18 06:23 HCl 10 mg PO 12/24/18 05:59 50 mg DAILY@0600 OFELIA Administration Miscellaneous 1 each 12/12/18 22:00 12/17/18 22:57 Lidoderm Patch Removal MC 1 each DAILY@2200 OFELIA Administration Nicotine Polacrilex 2 mg 12/15/18 10:25 12/18/18 10:25 Nicorette Gum - BUC 2 mg Q2H PRN Administration NICOTINE REPLACEMENT RX Multivit/Folic Acid/Iron 1 tab 12/10/18 10:00 12/18/18 09:59 Vitamins (Sjr) - PO 1 tab DAILY OFELIA Administration Pseudoephedrine/Triprolidine 1 combo 12/09/18 17:49 Actifed - PO TID PRN NASAL CONGESTION Quetiapine Fumarate 25 mg 12/10/18 22:00 12/17/18 22:57 Seroquel - PO Not Given HS OFELIA Ranitidine HCl 150 mg 12/15/18 22:00 12/18/18 09:59 Zantac - PO 150 mg BID OFELIA Administration Thiamine HCl 100 mg 12/09/18 22:00 12/17/18 22:57 Vitamin B1 - PO 100 mg HS OFELIA Administration Trimethoprim/Sulfamethoxazole 1 each 12/16/18 22:00 12/18/18 09:58 Bactrim Ds - PO 1 each BID OFELIA Administration Vitamin A/Vitamin D 1 applic 12/12/18 13:29 12/15/18 12:19 Vitamin A & D Top Oint - TP 1 applic BID PRN Administration DRY SKIN Medication(s) Change(s): No. Current Side Effect: No Lab tests ordered: No Lab tests reviewed: Yes Provider note:: Patient requesting to have medical issues addressed. Tv Host informed patient that she would have to speak to the medical providers. Patient then focused on not wanting to feel sedated from accepting gabapentin 400mg TID which she reports taking for her pain. Patient informed to speak to medical provider concerning problems with pain medications. Patient denies depressive symptoms. Reports stable mood. No SI, HI, auditory/visual hallucinations. Will inform PUBLIC AREA ATTENDANT of patient's medical concerns. Total face to face time:: 15 Mental Status Exam - Mental Status Exam Alert and Oriented to: Time, Place, Person Cognitive Function: Good Patient Appearance: Well Groomed Mood: Euthymic Affect: Mood Congruent Patient Behavior: Cooperative Speech Pattern: Appropriate Voice Loudness: Normal Thought Process: Goal Oriented Thought Disorder: Not Present Hallucinations: Denies Suicidal Ideation: Denies Homicidal Ideation: Denies Insight/Judgement: Poor Sleep: Well Appetite: Fair Muscle strength/Tone: Normal Gait/Station: Normal Psychiatric Treatment Plan - Problem List (1) Cocaine dependence Current Visit: Yes Qualifiers: Substance use status: uncomplicated Qualified Code(s): F14.20 - Cocaine dependence, uncomplicated (2) Substance induced mood disorder Current Visit: Yes (3) Substance-induced sleep disorder Current Visit: Yes (4) Opioid dependence on agonist therapy Current Visit: Yes Comment: on MTTP at [facility] (5) Bipolar disorder Current Visit: No (6) Nicotine dependence Current Visit: Yes Qualifiers: Nicotine product type: cigarettes (7) Alcohol dependence Current Visit: No Qualifiers: Substance use status: unspecified alcohol-induced disorder Qualified Code(s ): F10.29 - Alcohol dependence with unspecified alcohol-induced disorder
[2018-12-18] MEDS ORDERED: PT OWN MED DRAWER 7, Y5N ONE ×2 (21:15→22:50)
[2018-12-18] MEDS: THIAMINE HCL 100 MG TABLET (FP) PO SCH (22:07)
[2018-12-18] MEDS: LIDOCAINE PATCH REMOVAL MC SCH (22:08)
[2018-12-18] MEDS: hydrOXYzine HCL 25 MG TABLET (FP) PO PRN (22:08)
[2018-12-18] MEDS: QUEtiapine FUMARATE 25 MG TABLET (FP) PO SCH (22:08)
[2018-12-19] MEDS ORDERED: METHADONE HCL 40 MG DISPERSABLE TABLET ONE (06:33)
[2018-12-19] MEDS ORDERED: METHADONE HCL 10 MG TABLET ONE (06:33)
[2018-12-19] MEDS: METHADONE 40 MG, METHADONE 10 MG PO SCH (06:34)
[2018-12-19] MEDS: GABAPENTIN 400 MG CAPSULE (FP) PO SCH ×3 (06:34→22:36)
[2018-12-19] MEDS: PRENATAL VITAMINS W/ FOLIC ACID TABLET (FP) PO SCH (10:50)
[2018-12-19] MEDS: HYDROCHLOROTHIAZIDE 12.5 MG CAPSULE (FP) PO SCH (10:51)
[2018-12-19] MEDS: LIDOCAINE 5% TOPICAL PATCH TP SCH (10:51)
[2018-12-19] MEDS: SULFAMETHOXAZOLE/TRIMETHOPRIM 800MG/160MG D.S. TABLET PO SCH ×2 (10:52→22:36)
[2018-12-19] MEDS: RANITIDINE HCL 150 MG TABLET (FP) PO SCH ×2 (10:53→22:36)
--- NOTE | 2018-12-19 16:01 | PN ---
[facility] Progress Note Note: lab review Microbiology 12/17/18 13:40 Urine - Urine Clean Catch Urine Culture - Final Streptococcus Viridans Pt currently on bactrim ds 1 tab po bid.
[2018-12-19] MEDS ORDERED: PT OWN MED DRAWER 7, Y5N ONE (19:31)
[2018-12-19] MEDS: THIAMINE HCL 100 MG TABLET (FP) PO SCH (22:36)
[2018-12-19] MEDS: MELATONIN 5 MG TABLETS PO PRN (22:37)
[2018-12-19] MEDS: QUEtiapine FUMARATE 25 MG TABLET (FP) PO SCH (22:38)
[2018-12-19] MEDS: LIDOCAINE PATCH REMOVAL MC SCH (22:38)
[2018-12-20] MEDS ORDERED: METHADONE HCL 40 MG DISPERSABLE TABLET ONE (06:36)
[2018-12-20] MEDS ORDERED: METHADONE HCL 10 MG TABLET ONE (06:36)
[2018-12-20] MEDS: METHADONE 40 MG, METHADONE 10 MG PO SCH (06:37)
[2018-12-20] MEDS: GABAPENTIN 400 MG CAPSULE (FP) PO SCH ×3 (06:37→21:47)
[2018-12-20] MEDS: PRENATAL VITAMINS W/ FOLIC ACID TABLET (FP) PO SCH (09:27)
[2018-12-20] MEDS: HYDROCHLOROTHIAZIDE 12.5 MG CAPSULE (FP) PO SCH (09:27)
[2018-12-20] MEDS: SULFAMETHOXAZOLE/TRIMETHOPRIM 800MG/160MG D.S. TABLET PO SCH ×2 (09:27→21:47)
[2018-12-20] MEDS: RANITIDINE HCL 150 MG TABLET (FP) PO SCH ×2 (09:27→21:49)
[2018-12-20] MEDS: AMMONIUM LACTATE 12% LOTION 225 GM BOTTLE TP PRN (09:28)
[2018-12-20] MEDS: LIDOCAINE 5% TOPICAL PATCH TP SCH (09:29)
[2018-12-20] MEDS: THIAMINE HCL 100 MG TABLET (FP) PO SCH (21:47)
[2018-12-20] MEDS: hydrOXYzine HCL 25 MG TABLET (FP) PO PRN (21:48)
[2018-12-20] MEDS: LIDOCAINE PATCH REMOVAL MC SCH (21:49)
[2018-12-20] MEDS: QUEtiapine FUMARATE 25 MG TABLET (FP) PO SCH (21:50)
[2018-12-20] MEDS ORDERED: PT OWN MED DRAWER 7, Y5N ONE (21:55)
[2018-12-21] MEDS ORDERED: METHADONE HCL 40 MG DISPERSABLE TABLET ONE (06:57)
[2018-12-21] MEDS ORDERED: METHADONE HCL 10 MG TABLET ONE (06:57)
[2018-12-21] MEDS: METHADONE 40 MG, METHADONE 10 MG PO SCH (06:58)
[2018-12-21] MEDS: GABAPENTIN 400 MG CAPSULE (FP) PO SCH ×3 (06:58→21:36)
[2018-12-21] MEDS: PRENATAL VITAMINS W/ FOLIC ACID TABLET (FP) PO SCH (09:44)
[2018-12-21] MEDS: SULFAMETHOXAZOLE/TRIMETHOPRIM 800MG/160MG D.S. TABLET PO SCH ×2 (09:44→21:36)
[2018-12-21] MEDS: HYDROCHLOROTHIAZIDE 12.5 MG CAPSULE (FP) PO SCH (09:44)
[2018-12-21] MEDS: RANITIDINE HCL 150 MG TABLET (FP) PO SCH ×2 (09:45→21:38)
[2018-12-21] MEDS: LIDOCAINE 5% TOPICAL PATCH TP SCH (09:45)
[2018-12-21] MEDS: NICOTINE POLACRILEX 2 MG GUM BUC PRN (13:42)
[2018-12-21] MEDS: hydrOXYzine HCL 25 MG TABLET (FP) PO PRN (21:36)
[2018-12-21] MEDS: MELATONIN 5 MG TABLETS PO PRN (21:36)
[2018-12-21] MEDS: THIAMINE HCL 100 MG TABLET (FP) PO SCH (21:36)
[2018-12-21] MEDS: LIDOCAINE PATCH REMOVAL MC SCH (21:37)
[2018-12-21] MEDS: QUEtiapine FUMARATE 25 MG TABLET (FP) PO SCH (21:37)
[2018-12-21] MEDS ORDERED: PT OWN MED DRAWER 7, Y5N ONE (22:53)
[2018-12-22] MEDS ORDERED: METHADONE HCL 40 MG DISPERSABLE TABLET ONE (06:23)
[2018-12-22] MEDS ORDERED: METHADONE HCL 10 MG TABLET ONE (06:23)
[2018-12-22] MEDS: GABAPENTIN 400 MG CAPSULE (FP) PO SCH ×3 (06:24→21:12)
[2018-12-22] MEDS: METHADONE 40 MG, METHADONE 10 MG PO SCH (06:24)
[2018-12-22] MEDS: HYDROCHLOROTHIAZIDE 12.5 MG CAPSULE (FP) PO SCH (09:35)
[2018-12-22] MEDS: SULFAMETHOXAZOLE/TRIMETHOPRIM 800MG/160MG D.S. TABLET PO SCH ×2 (09:35→21:12)
[2018-12-22] MEDS: LIDOCAINE 5% TOPICAL PATCH TP SCH (09:35)
[2018-12-22] MEDS: RANITIDINE HCL 150 MG TABLET (FP) PO SCH ×2 (09:36→21:12)
[2018-12-22] MEDS: PRENATAL VITAMINS W/ FOLIC ACID TABLET (FP) PO SCH (09:36)
--- NOTE | 2018-12-22 15:06 | PN ---
[facility] Progress Note Note: Patient is scheduled for discharge tomorrow. Script for 30 days supply of Seroquel 25 mg/hs will be electronically transmitted to [facility] at [facility] [place] [address]
[2018-12-22] MEDS: COLLOIDAL OATMEAL 1 BAR EACH TP PRN (17:52)
[2018-12-22] MEDS: hydrOXYzine HCL 25 MG TABLET (FP) PO PRN (21:12)
[2018-12-22] MEDS: THIAMINE HCL 100 MG TABLET (FP) PO SCH (21:12)
[2018-12-22] MEDS: LIDOCAINE PATCH REMOVAL MC SCH (21:13)
[2018-12-22] MEDS: QUEtiapine FUMARATE 25 MG TABLET (FP) PO SCH (21:13)
--- NOTE | 2018-12-22 22:26 | PN ---
[facility] Progress Note (SOAP) Subjective: PT SCHEDULED TO DISCHARGE TOMORROW. PARTICIPATED IN REHAB GROUPS AND INDIVIDUAL ACTIVITIES. PT MET WITH HER COUNSELOR AND HAS BEEN REFERRED TO [facility]ITIVE [facility] FOR CD AFTERC[facility]. PT REPORTS SHE HAS A PRIMARY CARE PROVIDER ON [place], [place] FOR MEDICAL MANAGEMENT( BUT FORGOT HOW TO SPELL HER NAME PER PT). PT DENIES S/H/I. Objective: 12/22/18 22:24 ALERT O X 3. Vital Signs - 24 hr 12/22/18 12/22/18 12/22/18 00:30 03:30 06:28 Temperature 97.6 F Pulse Rate 69 Respiratory 18 18 16 Rate Blood Pressure 104/67 12/22/18 09:30 Temperature Pulse Rate 84 Respiratory 18 Rate Blood Pressure 158/79 Laboratory Tests 12/09/18 12/09/18 12/10/18 17:24 21:25 08:40 WBC 3.3 L RBC 3.89 Hgb 11.9 Hct 35.8 MCV 92.0 MCH 30.5 MCHC 33.2 RDW 13.2 Plt Count 152 D MPV 9.4 Sodium Potassium Chloride Carbon Dioxide Anion Gap BUN Creatinine Est GFR (CKD-EPI)AfAm Est GFR (CKD-EPI)NonAf Random Glucose Calcium Total Bilirubin AST ALT Alkaline Phosphatase Total Protein Albumin Urine Color Yellow Urine Appearance Cloudy Urine pH 6.0 D Ur Specific [place] 1.022 Urine Protein Negative Urine Glucose (UA) Negative Urine Ketones Negative Urine Blood Negative Urine Nitrite Negative Urine Bilirubin Negative Urine Urobilinogen 1.0 Ur Leukocyte Esterase Negative POC Urine HCG, Qual Negative RPR Titer 12/10/18 12/10/18 08:40 08:40 WBC RBC Hgb Hct MCV MCH MCHC RDW Plt Count MPV Sodium 145 Potassium 3.6 Chloride 109 H Carbon Dioxide 31 Anion Gap 6 L BUN 10.0 Creatinine 0.7 Est GFR (CKD-EPI)AfAm 115.45 Est GFR (CKD-EPI)NonAf 99.62 Random Glucose 98 Calcium 8.7 Total Bilirubin 0.2 AST 19 ALT 28 Alkaline Phosphatase 113 Total Protein 6.3 L Albumin 3.4 Urine Color Urine Appearance Urine pH Ur Specific [place] Urine Protein Urine Glucose (UA) Urine Ketones Urine Blood Urine Nitrite Urine Bilirubin Urine Urobilinogen Ur Leukocyte Esterase POC Urine HCG, Qual RPR Titer Nonreactive Microbiology 12/17/18 13:40 Urine - Urine Clean Catch Urine Culture - Final Streptococcus Viridans COMPLETION OF 7 DAYS COURSE OF BACTRIM DS THERAPY DUE TOMORROW. LAB RESULT WITH PATIENT IN DISCHARGE PACKAGE. Assessment: 12/22/18 22:25 NAD MEDICALLY STABLE [facility] Inpatient Services Medical - Diagnosis (1) Cocaine dependence Qualifiers: Substance use status: uncomplicated Qualified Code(s): F14.20 - Cocaine dependence, uncomplicated Current Visit: Yes Status: Chronic (2) Nicotine dependence Qualifiers: Nicotine product type: cigarettes Substance use status: uncomplicated Qualified Code(s): F17.210 - Nicotine dependence, cigarettes, uncomplicated Current Visit: Yes Status: Chronic (3) Opioid dependence on agonist therapy Current Visit: Yes Status: Chronic (4) Anemia Qualifiers: Anemia type: unspecified type Qualified Code(s): D64.9 - Anemia, unspecified Current Visit: Yes Status: Resolved (5) Arthritis Current Visit: Yes Status: Chronic (6) Asthma Qualifiers: Asthma severity: mild Asthma persistence: unspecified Asthma complication type: unspecified Qualified Code(s): J45.909 - Unspecified asthma , uncomplicated Current Visit: No Status: Chronic (7) HTN (hypertension) Qualifiers: Hypertension type: essential hypertension Qualified Code(s): I10 - Essential (primary) hypertension Current Visit: Yes Status: Chronic (8) UTI (urinary tract infection) Qualifiers: Encounter type: initial encounter Current Visit: Yes Status: Acute Initialized on 12/22/18 22:28 - END OF NOTE Plan: MAY D/C IN THE MORNING. FOLLOW UP WITH CD AFTERCARE RECOMMENDATIONS. FOLLOW UP WITH PRIMARY CARE MANAGEMENT 1- 2 WEEKS AFTER DISCHARGE.
[2018-12-23] MEDS ORDERED: METHADONE HCL 10 MG TABLET ONE (06:30)
[2018-12-23] MEDS ORDERED: METHADONE HCL 40 MG DISPERSABLE TABLET ONE (06:30)
[2018-12-23] MEDS: METHADONE 40 MG, METHADONE 10 MG PO SCH (06:40)
[2018-12-23] MEDS: GABAPENTIN 400 MG CAPSULE (FP) PO SCH (06:41)
[2018-12-23 07:16] VITALS: BP 115/81; PULSE 73; TEMP 98
[2018-12-23] MEDS: LIDOCAINE 5% TOPICAL PATCH TP SCH (09:26)
[2018-12-23] MEDS: SULFAMETHOXAZOLE/TRIMETHOPRIM 800MG/160MG D.S. TABLET PO SCH (09:26)
[2018-12-23] MEDS: HYDROCHLOROTHIAZIDE 12.5 MG CAPSULE (FP) PO SCH (09:26)
[2018-12-23] MEDS: PRENATAL VITAMINS W/ FOLIC ACID TABLET (FP) PO SCH (09:27)
[2018-12-23] MEDS: RANITIDINE HCL 150 MG TABLET (FP) PO SCH (09:27)
== END 2018-12-23 10:00 | disposition home or self-care (01) | DRG 772 ==
LOC: YASAS 13:28 → Y3E 18:20
PROVIDERS: ADMIT Neuromusculoskeletal Medicine & OMM; ATTEND Neuromusculoskeletal Medicine & OMM
PROC: HZ42ZZZ Group Counseling for Substance Abuse Treatment, Cognitive-Behavioral (ICD-10-PCS; principal; 2018-12-09)
DX: F10.20 Alcohol dependence, uncomplicated (principal); F11.20 Opioid dependence, uncomplicated; F14.20 Cocaine dependence, uncomplicated; F17.210 Nicotine dependence, cigarettes, uncomplicated; F19.24 Other psychoactive substance dependence with psychoactive substance-induced mood disorder; F19.282 Other psychoactive substance dependence with psychoactive substance-induced sleep disorder; F31.9 Bipolar disorder, unspecified; I10 Essential (primary) hypertension; D64.9 Anemia, unspecified; M19.90 Unspecified osteoarthritis, unspecified site; J45.909 Unspecified asthma, uncomplicated; N39.0 Urinary tract infection, site not specified; B95.4 Other streptococcus as the cause of diseases classified elsewhere
CPT/HCPCS: 36415; 80053; 81003; 81025; 85027; 86593; 87077; 87086; J0735

== ENCOUNTER 2022-01-10 17:33 | Inpatient (IN) | payer OTHER ==
[2022-01-10 20:20] VITALS: BMI 20.2
[2022-01-10] MEDS ORDERED: MAGNESIUM CITRATE 300 ML BOTTLE PO PRN (22:02)
[2022-01-10] MEDS ORDERED: LOPERAMIDE HCL 2 MG CAPSULE PO PRN (22:02)
[2022-01-10] MEDS ORDERED: ACETAMINOPHEN 325 MG TABLET (FP) PO PRN (22:02)
[2022-01-10] MEDS ORDERED: MAGNESIUM HYDROX 2400MG/30ML ORAL SUSPENSION 30 ML CUP PO PRN (22:02)
[2022-01-10] MEDS ORDERED: P-EPHED 60MG/TRIPROLIDI 2.5MG TABLET PO PRN (22:02)
[2022-01-10] MEDS ORDERED: MAG HYDROX/AL HYDROX/SIMETH 30 ML UNIT-DOSE CUP PO PRN (22:02)
[2022-01-10] MEDS ORDERED: guaiFENesin 200 MG/10 ML 10 ML UNIT-DOSE CUPS PO PRN (22:02)
[2022-01-10] MEDS ORDERED: NALOXONE HCL 0.4 MG/ML VIAL IVPUSH PRN (22:05)
[2022-01-10] MEDS ORDERED: TUBERCULIN PPD 5 TU/0.1ML VIAL ID ONE (23:45)
[2022-01-10] MEDS: MELATONIN 5 MG TABLETS PO SCH (23:47)
[2022-01-11] MEDS: PRENATAL VITAMINS W/ FOLIC ACID TABLET (FP) PO SCH (09:56)
[2022-01-11] MEDS ORDERED: methaDONE HCL 40 MG DISPERSABLE TABLET PO ONE (10:57)
[2022-01-11 11:55] LABS: HEMATOCRIT 38.3 % (32.4-45.2); HEMOGLOBIN 12.9 GM/dL (10.7-15.3); MCH 30.7 pg (25.7-33.7); MCHC 33.8 g/dl (32.0-36.0); MEAN CELL VOLUME 90.8 fl (80-96); MEAN PLT VOLUME 8.5 fl (7.5-11.1); PLATELET COUNT 195 10^3/uL (134-434); RBC 4.22 M/mm3 (3.60-5.2); RDW 14.3 % (11.6-15.6); WHITE BLOOD COUNT 4.1 K/mm3 (4.0-10.0)
[2022-01-11] MEDS: LISINOPRIL 10 MG TABLET PO SCH (12:03)
[2022-01-11 12:06] LABS: ALBUMIN 3.6 g/dl (3.4-5.0); BLOOD UREA NITROGEN 12.4 mg/dL (7-18)
[2022-01-11 12:10] LABS: CREATININE 0.6 mg/dL (0.55-1.3)
[2022-01-11 12:12] LABS: BILIRUBIN,TOTAL 0.3 mg/dL (0.2-1); TOT PROT 6.6 g/dl (6.4-8.2)
[2022-01-11] MEDS: hydrOXYzine PAMOATE 25 MG CAPSULE (FP) PO PRN (13:55)
[2022-01-11] MEDS: NICOTINE 10 MG CARTRIDGE (INHALER) IH PRN (14:57)
[2022-01-11] MEDS: MELATONIN 5 MG TABLETS PO SCH (21:17)
[2022-01-11] MEDS: GABAPENTIN 100 MG CAPSULE PO SCH (21:18)
[2022-01-11] MEDS: QUEtiapine FUMARATE 25 MG TABLET PO SCH (21:18)
[2022-01-11] MEDS: THIAMINE HCL 100 MG TABLET (FP) PO SCH (21:19)
[2022-01-12] MEDS: GABAPENTIN 100 MG CAPSULE PO SCH ×3 (06:58→21:45)
[2022-01-12] MEDS: methaDONE HCL 40 MG DISPERSABLE TABLET PO SCH (06:58)
[2022-01-12] MEDS: hydrOXYzine PAMOATE 25 MG CAPSULE (FP) PO PRN (06:59)
[2022-01-12] MEDS: PRENATAL VITAMINS W/ FOLIC ACID TABLET (FP) PO SCH (09:58)
[2022-01-12] MEDS: LISINOPRIL 10 MG TABLET PO SCH (10:47)
[2022-01-12] MEDS: COLLOIDAL OATMEAL 1 BAR EACH TP PRN (13:19)
[2022-01-12] MEDS: MELATONIN 5 MG TABLETS PO SCH (21:45)
[2022-01-12] MEDS: QUEtiapine FUMARATE 25 MG TABLET PO SCH (21:45)
[2022-01-12] MEDS: THIAMINE HCL 100 MG TABLET (FP) PO SCH (21:45)
[2022-01-13] MEDS: GABAPENTIN 100 MG CAPSULE PO SCH ×3 (06:20→21:59)
[2022-01-13] MEDS: methaDONE HCL 40 MG DISPERSABLE TABLET PO SCH (06:20)
[2022-01-13] MEDS: hydrOXYzine PAMOATE 25 MG CAPSULE (FP) PO PRN ×2 (06:20→21:59)
[2022-01-13] MEDS: LISINOPRIL 10 MG TABLET PO SCH (10:35)
[2022-01-13] MEDS: PRENATAL VITAMINS W/ FOLIC ACID TABLET (FP) PO SCH (10:36)
[2022-01-13] MEDS: MELATONIN 5 MG TABLETS PO SCH (21:59)
[2022-01-13] MEDS: THIAMINE HCL 100 MG TABLET (FP) PO SCH (21:59)
[2022-01-13] MEDS: QUEtiapine FUMARATE 25 MG TABLET PO SCH (21:59)
[2022-01-14] MEDS: hydrOXYzine PAMOATE 25 MG CAPSULE (FP) PO PRN ×2 (06:29→21:48)
[2022-01-14] MEDS: methaDONE HCL 40 MG DISPERSABLE TABLET PO SCH (06:30)
[2022-01-14] MEDS: GABAPENTIN 100 MG CAPSULE PO SCH ×3 (06:30→21:47)
[2022-01-14] MEDS: PRENATAL VITAMINS W/ FOLIC ACID TABLET (FP) PO SCH (10:37)
[2022-01-14] MEDS: LISINOPRIL 10 MG TABLET PO SCH (10:38)
[2022-01-14] MEDS: MELATONIN 5 MG TABLETS PO SCH (21:47)
[2022-01-14] MEDS: QUEtiapine FUMARATE 25 MG TABLET PO SCH (21:47)
[2022-01-14] MEDS: THIAMINE HCL 100 MG TABLET (FP) PO SCH (21:47)
[2022-01-15] MEDS: methaDONE HCL 40 MG DISPERSABLE TABLET PO SCH (05:51)
[2022-01-15] MEDS: GABAPENTIN 100 MG CAPSULE PO SCH ×3 (05:52→21:09)
[2022-01-15] MEDS: hydrOXYzine PAMOATE 25 MG CAPSULE (FP) PO PRN ×2 (05:53→21:11)
[2022-01-15 10:37] LABS: URINE APPEARANCE CLEAR; URINE BILIRUBIN NEGATIVE (NEGATIVE); URINE COLOR YELLOW; URINE GLUCOSE (UA) NEGATIVE (NEGATIVE); URINE KETONE NEGATIVE (NEGATIVE); URINE LEUK ESTERASE NEGATIVE (NEGATIVE); URINE NITRITE NEGATIVE (NEGATIVE); URINE PROTEIN NEGATIVE (NEGATIVE); URINE UROBILINOGEN 0.2 mg/dL (0.2-1.0)
[2022-01-15] MEDS: LISINOPRIL 10 MG TABLET PO SCH (10:52)
[2022-01-15] MEDS: PRENATAL VITAMINS W/ FOLIC ACID TABLET (FP) PO SCH (10:52)
[2022-01-15] MEDS: MELATONIN 5 MG TABLETS PO SCH (21:09)
[2022-01-15] MEDS: QUEtiapine FUMARATE 25 MG TABLET PO SCH (21:09)
[2022-01-15] MEDS: THIAMINE HCL 100 MG TABLET (FP) PO SCH (21:09)
[2022-01-16] MEDS: ONDANSETRON *ODT* 4 MG TABLET SL PRN (04:03)
[2022-01-16] MEDS: GABAPENTIN 100 MG CAPSULE PO SCH ×3 (06:36→21:57)
[2022-01-16] MEDS: methaDONE HCL 40 MG DISPERSABLE TABLET PO SCH (06:36)
[2022-01-16] MEDS: hydrOXYzine PAMOATE 25 MG CAPSULE (FP) PO PRN ×2 (07:40→21:58)
[2022-01-16] MEDS: PRENATAL VITAMINS W/ FOLIC ACID TABLET (FP) PO SCH (10:38)
[2022-01-16] MEDS: LISINOPRIL 10 MG TABLET PO SCH (10:39)
[2022-01-16] MEDS: QUEtiapine FUMARATE 25 MG TABLET PO SCH (21:57)
[2022-01-16] MEDS: THIAMINE HCL 100 MG TABLET (FP) PO SCH (21:57)
[2022-01-16] MEDS: MELATONIN 5 MG TABLETS PO SCH (21:59)
[2022-01-17] MEDS: methaDONE HCL 40 MG DISPERSABLE TABLET PO SCH (06:20)
[2022-01-17] MEDS: GABAPENTIN 100 MG CAPSULE PO SCH ×3 (06:21→21:05)
[2022-01-17] MEDS: hydrOXYzine PAMOATE 25 MG CAPSULE (FP) PO PRN ×3 (06:21→21:05)
[2022-01-17] MEDS: PRENATAL VITAMINS W/ FOLIC ACID TABLET (FP) PO SCH (10:40)
[2022-01-17] MEDS: LISINOPRIL 10 MG TABLET PO SCH (10:42)
[2022-01-17] MEDS: THIAMINE HCL 100 MG TABLET (FP) PO SCH (21:05)
[2022-01-17] MEDS: QUEtiapine FUMARATE 25 MG TABLET PO SCH (21:05)
[2022-01-17] MEDS: MELATONIN 5 MG TABLETS PO SCH (21:45)
[2022-01-18] MEDS: methaDONE HCL 40 MG DISPERSABLE TABLET PO SCH (06:08)
[2022-01-18] MEDS: GABAPENTIN 100 MG CAPSULE PO SCH ×3 (06:09→21:06)
[2022-01-18] MEDS: hydrOXYzine PAMOATE 25 MG CAPSULE (FP) PO PRN ×3 (06:11→21:06)
[2022-01-18] MEDS: ONDANSETRON *ODT* 4 MG TABLET SL PRN (06:39)
[2022-01-18] MEDS: PRENATAL VITAMINS W/ FOLIC ACID TABLET (FP) PO SCH (10:06)
[2022-01-18] MEDS: LISINOPRIL 10 MG TABLET PO SCH (10:06)
[2022-01-18] MEDS: QUEtiapine FUMARATE 25 MG TABLET PO SCH (21:06)
[2022-01-18] MEDS: THIAMINE HCL 100 MG TABLET (FP) PO SCH (21:06)
[2022-01-18] MEDS: MELATONIN 5 MG TABLETS PO SCH (21:56)
[2022-01-19] MEDS: hydrOXYzine PAMOATE 25 MG CAPSULE (FP) PO PRN ×3 (06:16→21:12)
[2022-01-19] MEDS: methaDONE HCL 40 MG DISPERSABLE TABLET PO SCH (06:37)
[2022-01-19] MEDS: GABAPENTIN 100 MG CAPSULE PO SCH ×3 (06:37→21:11)
[2022-01-19] MEDS: LISINOPRIL 10 MG TABLET PO SCH (10:36)
[2022-01-19] MEDS: PRENATAL VITAMINS W/ FOLIC ACID TABLET (FP) PO SCH (10:36)
[2022-01-19] MEDS: THIAMINE HCL 100 MG TABLET (FP) PO SCH (21:11)
[2022-01-19] MEDS: MELATONIN 5 MG TABLETS PO SCH (21:11)
[2022-01-19] MEDS: QUEtiapine FUMARATE 25 MG TABLET PO SCH (21:52)
[2022-01-20] MEDS: GABAPENTIN 100 MG CAPSULE PO SCH ×3 (06:15→21:04)
[2022-01-20] MEDS: methaDONE HCL 40 MG DISPERSABLE TABLET PO SCH (06:16)
[2022-01-20] MEDS: hydrOXYzine PAMOATE 25 MG CAPSULE (FP) PO PRN ×2 (06:16→14:10)
[2022-01-20] MEDS: LISINOPRIL 10 MG TABLET PO SCH (10:52)
[2022-01-20] MEDS: PRENATAL VITAMINS W/ FOLIC ACID TABLET (FP) PO SCH (10:52)
[2022-01-20] MEDS: IBUPROFEN 400 MG TABLET (FP) PO PRN (14:09)
[2022-01-20] MEDS: MELATONIN 5 MG TABLETS PO SCH (21:04)
[2022-01-20] MEDS: QUEtiapine FUMARATE 25 MG TABLET PO SCH (21:05)
[2022-01-20] MEDS: THIAMINE HCL 100 MG TABLET (FP) PO SCH (21:05)
[2022-01-21] MEDS: methaDONE HCL 40 MG DISPERSABLE TABLET PO SCH (06:06)
[2022-01-21] MEDS: GABAPENTIN 100 MG CAPSULE PO SCH ×4 (06:06→23:21)
[2022-01-21] MEDS: hydrOXYzine PAMOATE 25 MG CAPSULE (FP) PO PRN ×4 (06:07→23:02)
[2022-01-21] MEDS: COLLOIDAL OATMEAL 1 BAR EACH TP PRN (06:58)
[2022-01-21] MEDS: LISINOPRIL 10 MG TABLET PO SCH (10:41)
[2022-01-21] MEDS: PRENATAL VITAMINS W/ FOLIC ACID TABLET (FP) PO SCH (10:41)
[2022-01-21] MEDS: IBUPROFEN 400 MG TABLET (FP) PO PRN (13:28)
[2022-01-21] MEDS: NICOTINE 10 MG CARTRIDGE (INHALER) IH PRN (13:30)
[2022-01-21] MEDS: QUEtiapine FUMARATE 25 MG TABLET PO SCH ×2 (22:23→23:20)
[2022-01-21] MEDS: MELATONIN 5 MG TABLETS PO SCH ×2 (22:23→23:19)
[2022-01-21] MEDS: THIAMINE HCL 100 MG TABLET (FP) PO SCH ×2 (22:23→23:21)
[2022-01-22] MEDS: hydrOXYzine PAMOATE 25 MG CAPSULE (FP) PO PRN ×3 (06:29→21:17)
[2022-01-22] MEDS: methaDONE HCL 40 MG DISPERSABLE TABLET PO SCH (06:30)
[2022-01-22] MEDS: GABAPENTIN 100 MG CAPSULE PO SCH ×3 (06:30→21:16)
[2022-01-22] MEDS: LISINOPRIL 10 MG TABLET PO SCH (11:01)
[2022-01-22] MEDS: PRENATAL VITAMINS W/ FOLIC ACID TABLET (FP) PO SCH (11:01)
[2022-01-22] MEDS: QUEtiapine FUMARATE 25 MG TABLET PO SCH (21:16)
[2022-01-22] MEDS: THIAMINE HCL 100 MG TABLET (FP) PO SCH (21:16)
[2022-01-22] MEDS: MELATONIN 5 MG TABLETS PO SCH (21:17)
[2022-01-23] MEDS: hydrOXYzine PAMOATE 25 MG CAPSULE (FP) PO PRN ×3 (06:01→21:16)
[2022-01-23] MEDS: methaDONE HCL 40 MG DISPERSABLE TABLET PO SCH (06:02)
[2022-01-23] MEDS: GABAPENTIN 100 MG CAPSULE PO SCH ×3 (06:02→21:16)
[2022-01-23] MEDS: LISINOPRIL 10 MG TABLET PO SCH (10:47)
[2022-01-23] MEDS: PRENATAL VITAMINS W/ FOLIC ACID TABLET (FP) PO SCH (10:47)
[2022-01-23] MEDS: NICOTINE 10 MG CARTRIDGE (INHALER) IH PRN (12:22)
[2022-01-23] MEDS: THIAMINE HCL 100 MG TABLET (FP) PO SCH (21:16)
[2022-01-23] MEDS: QUEtiapine FUMARATE 25 MG TABLET PO SCH (21:17)
[2022-01-23] MEDS: MELATONIN 5 MG TABLETS PO SCH (21:17)
[2022-01-24] MEDS: methaDONE HCL 40 MG DISPERSABLE TABLET PO SCH (06:12)
[2022-01-24] MEDS: hydrOXYzine PAMOATE 25 MG CAPSULE (FP) PO PRN (06:13)
[2022-01-24] MEDS: GABAPENTIN 100 MG CAPSULE PO SCH (06:13)
[2022-01-24 07:30] VITALS: RESP 18
[2022-01-24 09:46] VITALS: BP 152/96; PULSE 78; TEMP 98.6
[2022-01-24] MEDS: PRENATAL VITAMINS W/ FOLIC ACID TABLET (FP) PO SCH (09:47)
[2022-01-24] MEDS: LISINOPRIL 10 MG TABLET PO SCH (09:47)
== END 2022-01-24 10:20 | disposition home or self-care (01) | DRG 772 ==
LOC: YASAS 17:33 → Y5N 23:20
PROVIDERS: ADMIT Allergy & Immunology; ATTEND Psychiatry & Neurology Pain Medicine
PROC: HZ42ZZZ Group Counseling for Substance Abuse Treatment, Cognitive-Behavioral (ICD-10-PCS; principal; 2022-01-10)
DX: F14.20 Cocaine dependence, uncomplicated (principal); F11.20 Opioid dependence, uncomplicated; F17.210 Nicotine dependence, cigarettes, uncomplicated; F19.282 Other psychoactive substance dependence with psychoactive substance-induced sleep disorder; F19.24 Other psychoactive substance dependence with psychoactive substance-induced mood disorder; I10 Essential (primary) hypertension; R63.6 Underweight; Z68.20 Body mass index [BMI] 20.0-20.9, adult; Z86.59 Personal history of other mental and behavioral disorders
CPT/HCPCS: 36415; 80053; 81003; 85027; 86780; 87811; C9803-CS; Q0162; U0003; U0005

== ENCOUNTER 2022-05-09 15:56 | Inpatient (IN) | payer OTHER ==
[2022-05-09] MEDS ORDERED: P-EPHED 60MG/TRIPROLIDI 2.5MG TABLET PO PRN (23:44)
[2022-05-09] MEDS ORDERED: BENZOCAINE/MENTHOL (CHLORASEPTIC ) LOZENGE MM PRN (23:44)
[2022-05-09] MEDS ORDERED: guaiFENesin 200 MG/10 ML 10 ML UNIT-DOSE CUPS PO PRN (23:44)
[2022-05-09] MEDS ORDERED: MAG HYDROX/AL HYDROX/SIMETH 30 ML UNIT-DOSE CUP PO PRN (23:44)
[2022-05-09] MEDS ORDERED: MAGNESIUM HYDROX 2400MG/30ML ORAL SUSPENSION 30 ML CUP PO PRN (23:44)
[2022-05-09] MEDS ORDERED: POLYETHYLENE GLYCOL (HEALTHYLAX) 3350 17 GM PACKET PO PRN (23:44)
[2022-05-09] MEDS ORDERED: ACETAMINOPHEN 325 MG TABLET (FP) PO PRN (23:44)
[2022-05-09 23:59] VITALS: BMI 22.4
[2022-05-10] MEDS ORDERED: cloNIDine HCL 0.1 MG TABLET PO ONE (00:04)
[2022-05-10] MEDS ORDERED: cloNIDine HCL 0.1 MG TABLET ONE (00:15)
[2022-05-10] MEDS: MELATONIN 5 MG TABLETS PO SCH ×2 (03:15→21:15)
[2022-05-10] MEDS ORDERED: methaDONE HCL 40 MG DISPERSABLE TABLET PO ONE (09:18)
[2022-05-10 10:13] LABS: HEMATOCRIT 37.7 % (32.4-45.2); HEMOGLOBIN 12.2 GM/dL (10.7-15.3); MCH 29.2 pg (25.7-33.7); MCHC 32.3 g/dl (32.0-36.0); MEAN CELL VOLUME 90.4 fl (80-96); PLATELET COUNT 213 10^3/uL (134-434); RBC 4.17 M/mm3 (3.60-5.2); RDW 14.4 % (11.6-15.6); WHITE BLOOD COUNT 3.9 K/mm3 (4.0-10.0)
[2022-05-10] MEDS: PRENATAL VITAMINS W/ FOLIC ACID TABLET (FP) PO SCH (10:49)
[2022-05-10 10:51] LABS: ALBUMIN 3.5 g/dl (3.4-5.0); BLOOD UREA NITROGEN 11.1 mg/dL (7-18); CALCIUM 9.5 mg/dL (8.5-10.1)
[2022-05-10 10:55] LABS: CREATININE 0.7 mg/dL (0.55-1.3)
[2022-05-10 10:56] LABS: BILIRUBIN,TOTAL 0.4 mg/dL (0.2-1); TOT PROT 6.4 g/dl (6.4-8.2)
[2022-05-10] MEDS: BACITRACIN 0.9 GM PACKET TP SCH ×2 (11:39→21:15)
[2022-05-10] MEDS: GABAPENTIN 100 MG CAPSULE PO SCH ×2 (14:20→21:15)
[2022-05-10] MEDS: THIAMINE HCL 100 MG TABLET (FP) PO SCH (21:15)
[2022-05-10] MEDS: diphenhydrAMINE HCL 25 MG CAPSULE (FP) PO PRN (21:15)
[2022-05-10] MEDS: QUEtiapine FUMARATE 25 MG TABLET PO SCH (21:17)
[2022-05-11] MEDS: methaDONE HCL 40 MG DISPERSABLE TABLET PO SCH (06:27)
[2022-05-11] MEDS: GABAPENTIN 100 MG CAPSULE PO SCH ×3 (06:29→21:13)
[2022-05-11] MEDS: BACITRACIN 0.9 GM PACKET TP SCH ×2 (09:30→21:12)
[2022-05-11] MEDS: diphenhydrAMINE HCL 25 MG CAPSULE (FP) PO PRN (09:31)
[2022-05-11] MEDS: PRENATAL VITAMINS W/ FOLIC ACID TABLET (FP) PO SCH (09:31)
[2022-05-11] MEDS ORDERED: valACYclovir HCL 500 MG TABLET (FP) PO ONE ×2 (11:16→22:00)
[2022-05-11] MEDS: THIAMINE HCL 100 MG TABLET (FP) PO SCH (21:12)
[2022-05-11] MEDS: QUEtiapine FUMARATE 25 MG TABLET PO SCH (21:12)
[2022-05-11] MEDS: IBUPROFEN 400 MG TABLET (FP) PO PRN (21:14)
[2022-05-11] MEDS: MELATONIN 5 MG TABLETS PO SCH (21:44)
[2022-05-12] MEDS: ONDANSETRON *ODT* 4 MG TABLET SL PRN (07:40)
[2022-05-12] MEDS: methaDONE HCL 40 MG DISPERSABLE TABLET PO SCH (07:52)
[2022-05-12] MEDS: GABAPENTIN 100 MG CAPSULE PO SCH ×3 (07:52→22:05)
[2022-05-12] MEDS: BACITRACIN 0.9 GM PACKET TP SCH ×2 (10:53→22:05)
[2022-05-12] MEDS: PRENATAL VITAMINS W/ FOLIC ACID TABLET (FP) PO SCH (10:53)
[2022-05-12] MEDS ORDERED: methaDONE HCL 10 MG TABLET PO ONE (12:17)
[2022-05-12] MEDS ORDERED: methaDONE 40 MG, methaDONE 20 MG PO ONE (12:45)
[2022-05-12] MEDS: METHYL SALICYLATE/MENTHOL OINT 30 GM TUBE TP SCH ×2 (12:52→22:06)
[2022-05-12] MEDS: MELATONIN 5 MG TABLETS PO SCH (22:05)
[2022-05-12] MEDS: THIAMINE HCL 100 MG TABLET (FP) PO SCH (22:05)
[2022-05-12] MEDS: QUEtiapine FUMARATE 25 MG TABLET PO SCH (22:06)
[2022-05-13] MEDS: GABAPENTIN 100 MG CAPSULE PO SCH ×3 (06:15→22:35)
[2022-05-13] MEDS: methaDONE HCL 40 MG DISPERSABLE TABLET PO SCH (06:15)
[2022-05-13] MEDS: diphenhydrAMINE HCL 25 MG CAPSULE (FP) PO PRN (07:37)
[2022-05-13] MEDS: PRENATAL VITAMINS W/ FOLIC ACID TABLET (FP) PO SCH (10:33)
[2022-05-13] MEDS: BACITRACIN 0.9 GM PACKET TP SCH ×2 (10:33→22:48)
[2022-05-13] MEDS: METHYL SALICYLATE/MENTHOL OINT 30 GM TUBE TP SCH ×2 (10:35→22:48)
[2022-05-13] MEDS: MELATONIN 5 MG TABLETS PO SCH (22:35)
[2022-05-13] MEDS: THIAMINE HCL 100 MG TABLET (FP) PO SCH (22:35)
[2022-05-13] MEDS: QUEtiapine FUMARATE 25 MG TABLET PO SCH (22:35)
[2022-05-14] MEDS: methaDONE HCL 40 MG DISPERSABLE TABLET PO SCH (06:28)
[2022-05-14] MEDS: GABAPENTIN 100 MG CAPSULE PO SCH ×3 (06:29→21:18)
[2022-05-14] MEDS: PRENATAL VITAMINS W/ FOLIC ACID TABLET (FP) PO SCH (10:59)
[2022-05-14] MEDS: METHYL SALICYLATE/MENTHOL OINT 30 GM TUBE TP SCH ×2 (10:59→21:16)
[2022-05-14] MEDS: BACITRACIN 0.9 GM PACKET TP SCH ×2 (10:59→21:16)
[2022-05-14] MEDS: IBUPROFEN 400 MG TABLET (FP) PO PRN (14:07)
[2022-05-14 15:36] LABS: URINE APPEARANCE CLEAR; URINE BILIRUBIN NEGATIVE (NEGATIVE); URINE COLOR YELLOW; URINE GLUCOSE (UA) NEGATIVE (NEGATIVE); URINE KETONE TRACE (NEGATIVE); URINE LEUK ESTERASE NEGATIVE (NEGATIVE); URINE NITRITE NEGATIVE (NEGATIVE); URINE PROTEIN TRACE (NEGATIVE)
[2022-05-14] MEDS: THIAMINE HCL 100 MG TABLET (FP) PO SCH (21:17)
[2022-05-14] MEDS: MELATONIN 5 MG TABLETS PO SCH (21:18)
[2022-05-14] MEDS: QUEtiapine FUMARATE 25 MG TABLET PO SCH (21:18)
[2022-05-14] MEDS: diphenhydrAMINE HCL 25 MG CAPSULE (FP) PO PRN (21:18)
[2022-05-15] MEDS: GABAPENTIN 100 MG CAPSULE PO SCH ×3 (06:10→22:35)
[2022-05-15] MEDS: methaDONE HCL 40 MG DISPERSABLE TABLET PO SCH (06:10)
[2022-05-15] MEDS: NICOTINE 10 MG CARTRIDGE (INHALER) IH PRN (07:13)
[2022-05-15] MEDS: PRENATAL VITAMINS W/ FOLIC ACID TABLET (FP) PO SCH (10:54)
[2022-05-15] MEDS: BACITRACIN 0.9 GM PACKET TP SCH ×2 (10:55→22:35)
[2022-05-15] MEDS: METHYL SALICYLATE/MENTHOL OINT 30 GM TUBE TP SCH ×2 (10:55→22:37)
[2022-05-15] MEDS: COLLOIDAL OATMEAL 1 BAR EACH TP PRN (12:17)
[2022-05-15] MEDS: IBUPROFEN 400 MG TABLET (FP) PO PRN (15:43)
[2022-05-15] MEDS: THIAMINE HCL 100 MG TABLET (FP) PO SCH (22:35)
[2022-05-15] MEDS: QUEtiapine FUMARATE 25 MG TABLET PO SCH (22:35)
[2022-05-15] MEDS: MELATONIN 5 MG TABLETS PO SCH (22:38)
[2022-05-16] MEDS: GABAPENTIN 100 MG CAPSULE PO SCH ×3 (06:11→21:33)
[2022-05-16] MEDS: methaDONE HCL 40 MG DISPERSABLE TABLET PO SCH (06:11)
[2022-05-16] MEDS: diphenhydrAMINE HCL 25 MG CAPSULE (FP) PO PRN ×2 (07:49→21:33)
[2022-05-16] MEDS: METHYL SALICYLATE/MENTHOL OINT 30 GM TUBE TP SCH ×2 (10:25→21:34)
[2022-05-16] MEDS: BACITRACIN 0.9 GM PACKET TP SCH ×2 (10:25→21:34)
[2022-05-16] MEDS: PRENATAL VITAMINS W/ FOLIC ACID TABLET (FP) PO SCH (10:25)
[2022-05-16] MEDS: IBUPROFEN 400 MG TABLET (FP) PO PRN (14:25)
[2022-05-16] MEDS: MELATONIN 5 MG TABLETS PO SCH (21:33)
[2022-05-16] MEDS: THIAMINE HCL 100 MG TABLET (FP) PO SCH (21:33)
[2022-05-16] MEDS: QUEtiapine FUMARATE 25 MG TABLET PO SCH (21:33)
[2022-05-17] MEDS: methaDONE HCL 40 MG DISPERSABLE TABLET PO SCH (05:56)
[2022-05-17] MEDS: GABAPENTIN 100 MG CAPSULE PO SCH ×3 (05:57→21:17)
[2022-05-17] MEDS: ONDANSETRON *ODT* 4 MG TABLET SL PRN (07:35)
[2022-05-17] MEDS: BACITRACIN 0.9 GM PACKET TP SCH ×2 (10:26→21:18)
[2022-05-17] MEDS: METHYL SALICYLATE/MENTHOL OINT 30 GM TUBE TP SCH ×2 (10:26→21:18)
[2022-05-17] MEDS: PRENATAL VITAMINS W/ FOLIC ACID TABLET (FP) PO SCH (10:26)
[2022-05-17] MEDS: IBUPROFEN 400 MG TABLET (FP) PO PRN (10:26)
[2022-05-17] MEDS: diphenhydrAMINE HCL 25 MG CAPSULE (FP) PO PRN ×2 (10:28→21:20)
[2022-05-17] MEDS: QUEtiapine FUMARATE 25 MG TABLET PO SCH (21:17)
[2022-05-17] MEDS: MELATONIN 5 MG TABLETS PO SCH (21:17)
[2022-05-17] MEDS: THIAMINE HCL 100 MG TABLET (FP) PO SCH (21:17)
[2022-05-18] MEDS: ONDANSETRON *ODT* 4 MG TABLET SL PRN ×2 (05:59→14:08)
[2022-05-18] MEDS: GABAPENTIN 100 MG CAPSULE PO SCH ×4 (05:59→22:59)
[2022-05-18] MEDS: methaDONE HCL 40 MG DISPERSABLE TABLET PO SCH (05:59)
[2022-05-18] MEDS: diphenhydrAMINE HCL 25 MG CAPSULE (FP) PO PRN (06:48)
[2022-05-18] MEDS: PRENATAL VITAMINS W/ FOLIC ACID TABLET (FP) PO SCH (10:27)
[2022-05-18] MEDS: BACITRACIN 0.9 GM PACKET TP SCH ×2 (10:28→22:59)
[2022-05-18] MEDS: METHYL SALICYLATE/MENTHOL OINT 30 GM TUBE TP SCH ×3 (10:28→22:59)
[2022-05-18] MEDS: MELATONIN 5 MG TABLETS PO SCH (22:59)
[2022-05-18] MEDS: QUEtiapine FUMARATE 25 MG TABLET PO SCH (22:59)
[2022-05-18] MEDS: THIAMINE HCL 100 MG TABLET (FP) PO SCH (23:00)
[2022-05-19] MEDS: methaDONE HCL 40 MG DISPERSABLE TABLET PO SCH (07:14)
[2022-05-19] MEDS: GABAPENTIN 100 MG CAPSULE PO SCH ×3 (07:14→22:53)
[2022-05-19] MEDS: ONDANSETRON *ODT* 4 MG TABLET SL PRN (08:32)
[2022-05-19] MEDS: BACITRACIN 0.9 GM PACKET TP SCH ×2 (10:56→22:53)
[2022-05-19] MEDS: PRENATAL VITAMINS W/ FOLIC ACID TABLET (FP) PO SCH (10:56)
[2022-05-19] MEDS: METHYL SALICYLATE/MENTHOL OINT 30 GM TUBE TP SCH ×2 (10:56→22:54)
[2022-05-19] MEDS ORDERED: methaDONE 40 MG, methaDONE 20 MG PO SCH (11:30)
[2022-05-19] MEDS: THIAMINE HCL 100 MG TABLET (FP) PO SCH (22:53)
[2022-05-19] MEDS: diphenhydrAMINE HCL 25 MG CAPSULE (FP) PO PRN (22:54)
[2022-05-19] MEDS: QUEtiapine FUMARATE 25 MG TABLET PO SCH (22:54)
[2022-05-19] MEDS: MELATONIN 5 MG TABLETS PO SCH (22:54)
[2022-05-20] MEDS ORDERED: methaDONE HCL 10 MG TABLET PO SCH (06:00)
[2022-05-20] MEDS ORDERED: methaDONE 40 MG, methaDONE 20 MG PO SCH (06:00)
[2022-05-20] MEDS: LOPERAMIDE HCL 2 MG CAPSULE PO PRN ×2 (06:32→13:48)
[2022-05-20] MEDS: GABAPENTIN 100 MG CAPSULE PO SCH ×3 (06:33→21:16)
[2022-05-20] MEDS: methaDONE 40 MG, methaDONE 20 MG PO SCH (06:33)
[2022-05-20] MEDS: PRENATAL VITAMINS W/ FOLIC ACID TABLET (FP) PO SCH (11:01)
[2022-05-20] MEDS: METHYL SALICYLATE/MENTHOL OINT 30 GM TUBE TP SCH ×2 (11:01→21:16)
[2022-05-20] MEDS: BACITRACIN 0.9 GM PACKET TP SCH ×2 (11:01→21:15)
[2022-05-20] MEDS: QUEtiapine FUMARATE 25 MG TABLET PO SCH (21:16)
[2022-05-20] MEDS: diphenhydrAMINE HCL 25 MG CAPSULE (FP) PO PRN (21:16)
[2022-05-20] MEDS: MELATONIN 5 MG TABLETS PO SCH (21:16)
[2022-05-20] MEDS: THIAMINE HCL 100 MG TABLET (FP) PO SCH (21:16)
[2022-05-21] MEDS: methaDONE 40 MG, methaDONE 20 MG PO SCH (06:06)
[2022-05-21] MEDS: GABAPENTIN 100 MG CAPSULE PO SCH ×3 (06:07→21:24)
[2022-05-21] MEDS: PRENATAL VITAMINS W/ FOLIC ACID TABLET (FP) PO SCH (09:34)
[2022-05-21] MEDS: BACITRACIN 0.9 GM PACKET TP SCH ×2 (09:34→21:24)
[2022-05-21] MEDS: METHYL SALICYLATE/MENTHOL OINT 30 GM TUBE TP SCH ×2 (09:34→21:24)
[2022-05-21] MEDS: diphenhydrAMINE HCL 25 MG CAPSULE (FP) PO PRN ×2 (09:35→21:23)
[2022-05-21] MEDS: THIAMINE HCL 100 MG TABLET (FP) PO SCH (21:23)
[2022-05-21] MEDS: QUEtiapine FUMARATE 25 MG TABLET PO SCH (21:24)
[2022-05-21] MEDS: MELATONIN 5 MG TABLETS PO SCH (21:24)
[2022-05-22] MEDS: methaDONE 40 MG, methaDONE 20 MG PO SCH (06:20)
[2022-05-22] MEDS: GABAPENTIN 100 MG CAPSULE PO SCH ×3 (06:20→21:31)
[2022-05-22] MEDS: diphenhydrAMINE HCL 25 MG CAPSULE (FP) PO PRN (06:22)
[2022-05-22] MEDS: BACITRACIN 0.9 GM PACKET TP SCH (10:50)
[2022-05-22] MEDS: PRENATAL VITAMINS W/ FOLIC ACID TABLET (FP) PO SCH (10:50)
[2022-05-22] MEDS: METHYL SALICYLATE/MENTHOL OINT 30 GM TUBE TP SCH (10:50)
[2022-05-22] MEDS ORDERED: METHYL SALICYLATE/MENTHOL OINT 30 GM TUBE TP PRN (12:44)
[2022-05-22] MEDS: THIAMINE HCL 100 MG TABLET (FP) PO SCH (21:31)
[2022-05-22] MEDS: MELATONIN 5 MG TABLETS PO SCH (21:31)
[2022-05-22] MEDS: QUEtiapine FUMARATE 25 MG TABLET PO SCH (21:32)
[2022-05-23] MEDS: GABAPENTIN 100 MG CAPSULE PO SCH ×3 (06:57→21:14)
[2022-05-23] MEDS: methaDONE 40 MG, methaDONE 20 MG PO SCH (06:57)
[2022-05-23] MEDS: diphenhydrAMINE HCL 25 MG CAPSULE (FP) PO PRN ×3 (06:59→21:17)
[2022-05-23] MEDS: PRENATAL VITAMINS W/ FOLIC ACID TABLET (FP) PO SCH (11:16)
[2022-05-23] MEDS: THIAMINE HCL 100 MG TABLET (FP) PO SCH (21:14)
[2022-05-23] MEDS: MELATONIN 5 MG TABLETS PO SCH (21:15)
[2022-05-23] MEDS: QUEtiapine FUMARATE 25 MG TABLET PO SCH (21:15)
[2022-05-24] MEDS: methaDONE 40 MG, methaDONE 20 MG PO SCH (07:06)
[2022-05-24] MEDS: GABAPENTIN 100 MG CAPSULE PO SCH ×3 (07:08→21:44)
[2022-05-24] MEDS: diphenhydrAMINE HCL 25 MG CAPSULE (FP) PO PRN ×2 (07:10→21:44)
[2022-05-24] MEDS: PRENATAL VITAMINS W/ FOLIC ACID TABLET (FP) PO SCH (11:18)
[2022-05-24] MEDS: IBUPROFEN 400 MG TABLET (FP) PO PRN (14:38)
[2022-05-24] MEDS: THIAMINE HCL 100 MG TABLET (FP) PO SCH (21:44)
[2022-05-24] MEDS: QUEtiapine FUMARATE 25 MG TABLET PO SCH (21:44)
[2022-05-24] MEDS: MELATONIN 5 MG TABLETS PO SCH (21:44)
[2022-05-25] MEDS: GABAPENTIN 100 MG CAPSULE PO SCH ×3 (07:07→21:14)
[2022-05-25] MEDS: methaDONE 40 MG, methaDONE 20 MG PO SCH (07:07)
[2022-05-25] MEDS: PRENATAL VITAMINS W/ FOLIC ACID TABLET (FP) PO SCH (10:57)
[2022-05-25] MEDS: diphenhydrAMINE HCL 25 MG CAPSULE (FP) PO PRN ×2 (14:21→21:14)
[2022-05-25] MEDS: MELATONIN 5 MG TABLETS PO SCH (21:14)
[2022-05-25] MEDS: THIAMINE HCL 100 MG TABLET (FP) PO SCH (21:14)
[2022-05-25] MEDS: QUEtiapine FUMARATE 25 MG TABLET PO SCH (21:14)
[2022-05-26] MEDS: methaDONE 40 MG, methaDONE 20 MG PO SCH (07:16)
[2022-05-26] MEDS: GABAPENTIN 100 MG CAPSULE PO SCH ×3 (07:16→21:08)
[2022-05-26] MEDS: diphenhydrAMINE HCL 25 MG CAPSULE (FP) PO PRN ×2 (07:18→21:08)
[2022-05-26] MEDS: PRENATAL VITAMINS W/ FOLIC ACID TABLET (FP) PO SCH (10:14)
[2022-05-26] MEDS: QUEtiapine FUMARATE 25 MG TABLET PO SCH (21:08)
[2022-05-26] MEDS: THIAMINE HCL 100 MG TABLET (FP) PO SCH (21:08)
[2022-05-26] MEDS: MELATONIN 5 MG TABLETS PO SCH (21:09)
[2022-05-26] MEDS: NICOTINE 10 MG CARTRIDGE (INHALER) IH PRN (21:11)
[2022-05-27] MEDS: GABAPENTIN 100 MG CAPSULE PO SCH ×3 (05:56→21:44)
[2022-05-27] MEDS ORDERED: methaDONE HCL 10 MG TABLET PO ONE (05:57)
[2022-05-27] MEDS ORDERED: methaDONE HCL 10 MG TABLET PO SCH (06:00)
[2022-05-27] MEDS: diphenhydrAMINE HCL 25 MG CAPSULE (FP) PO PRN ×2 (06:09→21:44)
[2022-05-27] MEDS ORDERED: methaDONE 40 MG, methaDONE 20 MG PO ONE (06:15)
[2022-05-27] MEDS: PRENATAL VITAMINS W/ FOLIC ACID TABLET (FP) PO SCH (10:22)
[2022-05-27] MEDS: IBUPROFEN 400 MG TABLET (FP) PO PRN ×2 (11:24→17:20)
[2022-05-27] MEDS: MELATONIN 5 MG TABLETS PO SCH (21:44)
[2022-05-27] MEDS: THIAMINE HCL 100 MG TABLET (FP) PO SCH (21:44)
[2022-05-27] MEDS: QUEtiapine FUMARATE 25 MG TABLET PO SCH (21:45)
[2022-05-28] MEDS: GABAPENTIN 100 MG CAPSULE PO SCH ×3 (06:09→21:18)
[2022-05-28] MEDS: methaDONE 40 MG, methaDONE 20 MG PO SCH (06:09)
[2022-05-28] MEDS: diphenhydrAMINE HCL 25 MG CAPSULE (FP) PO PRN (06:11)
[2022-05-28] MEDS: PRENATAL VITAMINS W/ FOLIC ACID TABLET (FP) PO SCH (10:52)
[2022-05-28] MEDS: IBUPROFEN 400 MG TABLET (FP) PO PRN (14:08)
[2022-05-28] MEDS: THIAMINE HCL 100 MG TABLET (FP) PO SCH (21:18)
[2022-05-28] MEDS: MELATONIN 5 MG TABLETS PO SCH (21:18)
[2022-05-28] MEDS: QUEtiapine FUMARATE 25 MG TABLET PO SCH (21:18)
[2022-05-29] MEDS: ONDANSETRON *ODT* 4 MG TABLET SL PRN ×2 (01:15→07:18)
[2022-05-29] MEDS: methaDONE 40 MG, methaDONE 20 MG PO SCH (07:18)
[2022-05-29] MEDS: GABAPENTIN 100 MG CAPSULE PO SCH ×3 (07:18→21:10)
[2022-05-29] MEDS: diphenhydrAMINE HCL 25 MG CAPSULE (FP) PO PRN ×2 (07:19→21:12)
[2022-05-29] MEDS: PRENATAL VITAMINS W/ FOLIC ACID TABLET (FP) PO SCH (09:40)
[2022-05-29] MEDS: IBUPROFEN 400 MG TABLET (FP) PO PRN (16:05)
[2022-05-29] MEDS: THIAMINE HCL 100 MG TABLET (FP) PO SCH (21:10)
[2022-05-29] MEDS: MELATONIN 5 MG TABLETS PO SCH (21:11)
[2022-05-29] MEDS: QUEtiapine FUMARATE 25 MG TABLET PO SCH (21:11)
[2022-05-30] MEDS: methaDONE 40 MG, methaDONE 20 MG PO SCH (06:03)
[2022-05-30] MEDS: GABAPENTIN 100 MG CAPSULE PO SCH ×3 (06:03→21:21)
[2022-05-30] MEDS: IBUPROFEN 400 MG TABLET (FP) PO PRN ×2 (06:06→13:49)
[2022-05-30] MEDS: diphenhydrAMINE HCL 25 MG CAPSULE (FP) PO PRN ×2 (06:06→21:21)
[2022-05-30] MEDS: PRENATAL VITAMINS W/ FOLIC ACID TABLET (FP) PO SCH (09:59)
[2022-05-30] MEDS: THIAMINE HCL 100 MG TABLET (FP) PO SCH (21:21)
[2022-05-30] MEDS: QUEtiapine FUMARATE 25 MG TABLET PO SCH (21:22)
[2022-05-30] MEDS: MELATONIN 5 MG TABLETS PO SCH (21:22)
[2022-05-31] MEDS: GABAPENTIN 100 MG CAPSULE PO SCH (06:22)
[2022-05-31] MEDS: methaDONE 40 MG, methaDONE 20 MG PO SCH (06:22)
[2022-05-31] MEDS: diphenhydrAMINE HCL 25 MG CAPSULE (FP) PO PRN (06:22)
[2022-05-31 07:00] VITALS: BP 155/83; PULSE 79; RESP 16; TEMP 97.6
[2022-05-31] MEDS: COLLOIDAL OATMEAL 1 BAR EACH TP PRN (07:46)
[2022-05-31] MEDS: PRENATAL VITAMINS W/ FOLIC ACID TABLET (FP) PO SCH (09:50)
[2022-06-01 12:29] LABS: HIV INTERPRETATION NEGATIVE (NEGATIVE)
== END 2022-05-31 11:20 | disposition home or self-care (01) | DRG 772 ==
LOC: YASAS 15:56 → Y5N 05-10 02:47
PROVIDERS: ADMIT Allergy & Immunology; ATTEND Psychiatry & Neurology Pain Medicine
PROC: HZ42ZZZ Group Counseling for Substance Abuse Treatment, Cognitive-Behavioral (ICD-10-PCS; principal; 2022-05-10)
DX: F14.20 Cocaine dependence, uncomplicated (principal); F11.20 Opioid dependence, uncomplicated; F12.20 Cannabis dependence, uncomplicated; F17.210 Nicotine dependence, cigarettes, uncomplicated; F31.9 Bipolar disorder, unspecified; F19.282 Other psychoactive substance dependence with psychoactive substance-induced sleep disorder; F19.280 Other psychoactive substance dependence with psychoactive substance-induced anxiety disorder; F19.24 Other psychoactive substance dependence with psychoactive substance-induced mood disorder; F41.9 Anxiety disorder, unspecified; I10 Essential (primary) hypertension; B00.1 Herpesviral vesicular dermatitis; M19.011 Primary osteoarthritis, right shoulder; M54.50 Low back pain, unspecified; G89.29 Other chronic pain
CPT/HCPCS: 36415; 80053; 81003; 82962; 85027; 86780; 87389; 93005; 93010; C9803-CS; Q0162; U0003; U0005